=== PATIENT | male | born 1935 | race Caucasian/White ===

== ENCOUNTER → 2016-08-03 | Outpatient (CLI) | payer OTHER ==
[~2016-08-03] MED LIST: ACET325T96 PO; AMLO5TAB4 PO; CHOL1CAP57 PO; CINA0.42 PO; CMD5 PO; CYAN10005 PO; DLD2 PO; DORZ1SOL6 OPL; DXM4 PO; ENOX1INJ14 SQ; FLV1 PO; HYDR-5688 PO; HYDR2TAB48 PO; IPRA1AER2 INH; LCTS240 PO; LISI5TAB PO; LISI5TAB3 PO; LORC1TAB PO; LVNIS150 SC; METH5TAB2 PO; MTH5 PO; OMEG10007 PO; ONDA8TAB6 PO; SERT50TA PO; SIMV20TA2 PO; TAMS0.4C38 PO; TAMS0.4C59 PO; TEMA15CA4 PO; TRAV0.00 OPL
[2016-08-03 10:14] LABS: ESTIMATED AVERAGE GLUCOSE 114 mg/dl; HA1C FLAG Normal (Normal)
[2016-08-03 10:19] LABS: ALT/SGPT 16 U/L (12-78); AST/SGOT 9 U/L (15-37); BLOOD UREA NITROGEN 25 mg/dl (7-18); BUN/CREATININE RATIO 19.5 (10-20); CALCIUM 9.5 mg/dl (8.5-10.1); CARBON DIOXIDE 31 mmol/L (21-32); CHLORIDE 106 mmol/L (98-107); CHOLESTEROL 116 mg/dl (0-200); GLUCOSE 110 mg/dl (70-99); SODIUM 143 mmol/L (136-145)
[2016-08-03 10:32] LABS: CHOLESTEROL/HDL RATIO 3.5; HDL CHOLESTEROL 33 mg/dl; LDL CHOLESTEROL CALCULATED 61 mg/dl; TRIGLYCERIDES 112 mg/dl (0-150); VERY LOW DENSITY LIPOPROT CALC 22 mg/dl
[2016-08-03 11:56] LABS: RATIO 54.7 mcg/mg (0-30.0)
== END | disposition home or self-care (01) ==
LOC: C.LAB 08:02
PROVIDERS: ATTEND Internal Medicine
DX: E11.9 Type 2 diabetes mellitus without complications (principal); E78.5 Hyperlipidemia, unspecified

== ENCOUNTER → 2016-11-09 | Outpatient (CLI) | payer OTHER ==
[~2016-11-09] MED LIST changes: -DLD2 PO; +HYDR2TAB3 PO
== END | disposition home or self-care (01) ==
LOC: C.LAB 07:53
PROVIDERS: ATTEND Internal Medicine
DX: R97.20 Elevated prostate specific antigen [PSA] (principal)

== ENCOUNTER → 2016-11-26 | Outpatient (CLI) | payer OTHER ==
--- NOTE | 2016-11-26 13:15 | DIAGNOSTIC IMAGING REPORT ---
LUMBAR SPINE 5 VIEWS HISTORY: Pain M54.5 Lower back [id number] COMPARISON: None. FINDINGS: There is no fracture. No subluxation. Moderate degenerative disc change throughout. Considerable anterior and peripheral osteophytic reaction. IMPRESSION: Moderate degenerative change. No acute process. Electronically signed by: Hugo Finnegan M.D. 11/26/2016 1:14 PM Dictated Date/Time: 11/26/2016 1:13 PM
--- NOTE | 2016-11-26 13:17 | DIAGNOSTIC IMAGING REPORT ---
LEFT PELVIS/UNILATERAL HIP 2-3VIEWS CLINICAL HISTORY: M54.5 Lower back [id number]. Left hip pain. COMPARISON STUDY: None. FINDINGS: No fracture or dislocation within the pelvis or hips. The sacrum is intact. Skin joaquin within the right lower quadrant. Mild osteoarthritis within the bilateral hips. A 1.9 cm calcification within the mid pelvis may represent a bladder stone. IMPRESSION: 1. No fracture or dislocation within the pelvis or hips. 2. Mild bilateral hip osteoarthritis. Electronically signed by: Jorge Luis Gu M.D. 11/26/2016 1:15 PM Dictated Date/Time: 11/26/2016 1:13 PM
[2016-11-26 13:19] LABS: BASO % 0.1 %; BASO ABS # 0.01 K/uL (0-0.2); COMPLETE YES; EOS % 2.7 %; HEMATOCRIT 38.8 % (42-52); IG% 0.6 %; LYMPH % 12.6 %; LYMPH ABS # 1.27 K/uL (1.2-3.4); MEAN CELL VOLUME 83.8 fL (80-100); MEAN CORPUSCULAR HEMOGLOBIN 27.2 pg (25-34); MEAN CORPUSCULAR HGB CONC 32.5 g/dl (32-36); MEAN PLATELET VOLUME 10.4 fL (7.4-10.4); MONO % 5.9 %; NEUT % 78.1 %; PLATELET COUNT 224 K/uL (130-400); RED BLOOD COUNT 4.63 M/uL (4.7-6.1); WHITE BLOOD COUNT 10.06 K/uL (4.8-10.8)
[2016-11-26 13:33] LABS: URINE APPEARANCE CLEAR (CLEAR); URINE BILIRUBIN NEG (NEG); URINE COLOR YELLOW; URINE EPITHELIAL CELL AUTO >30 /lpf (0-5); URINE NITRITE NEG (NEG); URINE PH 5.5 (4.5-7.5); URINE SPECIFIC GRAVITY 1.018 (1.000-1.030); UROBILINOGEN NEG (NEG); ZZUR CULT IF INDIC CLEAN CATCH NO
[2016-11-26 13:43] LABS: MANUAL MICROSCOPIC REQUIRED? NO; REVIEW REQ? NO
[2016-11-26 13:51] LABS: ALB/GLOB RATIO 0.7 (0.9-2); ALKALINE PHOSPHATASE 146 U/L (45-117); ALT/SGPT 40 U/L (12-78); AST/SGOT 37 U/L (15-37); BLOOD UREA NITROGEN 19 mg/dl (7-18); BUN/CREATININE RATIO 17.1 (10-20); CALCIUM 9.5 mg/dl (8.5-10.1); CARBON DIOXIDE 30 mmol/L (21-32); CHLORIDE 108 mmol/L (98-107); GLUCOSE 123 mg/dl (70-99); POTASSIUM 3.8 mmol/L (3.5-5.1); SODIUM 144 mmol/L (136-145)
== END | disposition home or self-care (01) ==
LOC: C.RAD1850 12:26
PROVIDERS: ATTEND Nurse Practitioner Adult Health
DX: M54.5 Low back pain (principal); W19.XXXA Unspecified fall, initial encounter; R73.9 Hyperglycemia, unspecified; E11.9 Type 2 diabetes mellitus without complications; R53.81 Other malaise

== ENCOUNTER 2016-12-01 07:20 | Inpatient (IN) | payer OTHER ==
[~2016-12-01] VITALS: Ht 182.9 cm; Wt 109.8 kg
[~2016-12-01 07:20] MED LIST changes: -ACET325T96 PO; -CHOL1CAP57 PO; -CMD5 PO; -DXM4 PO; -ENOX1INJ14 SQ; -HYDR-5688 PO; -HYDR2TAB3 PO; -HYDR2TAB48 PO; -LCTS240 PO; -LISI5TAB PO; -LVNIS150 SC; -METH5TAB2 PO; -MTH5 PO; -ONDA8TAB6 PO; -SERT50TA PO; -TAMS0.4C38 PO
[2016-12-01] MEDS ORDERED: CHOL1CAP57 PO (07:46)
[2016-12-01] MEDS ORDERED: DORZ1SOL6 OPL (07:46)
[2016-12-01] MEDS ORDERED: LISI5TAB PO (07:46)
[2016-12-01] MEDS ORDERED: TAMS0.4C38 PO (07:46)
[2016-12-01] MEDS ORDERED: SERT50TA PO (07:46)
[2016-12-01 08:03] LABS: HEMATOCRIT 41.1 % (42-52); MEAN CELL VOLUME 83.4 fL (80-100); MEAN CORPUSCULAR HEMOGLOBIN 27.4 pg (25-34); MEAN CORPUSCULAR HGB CONC 32.8 g/dl (32-36); MEAN PLATELET VOLUME 10.2 fL (7.4-10.4); PLATELET COUNT 208 K/uL (130-400); RED BLOOD COUNT 4.93 M/uL (4.7-6.1)
[2016-12-01 08:09] LABS: INR 1.1 (0.9-1.1); PARTIAL THROMBOPLASTIN RATIO 1.1
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
[2016-12-01 08:20] LABS: VEN BLD GAS O2 SATURATION 61.7 %; VEN BLOOD GAS BASE EXCESS 4.5 mmol/L
[2016-12-01 08:22] LABS: BASO % 0.1 %; BASO ABS # 0.01 K/uL (0-0.2); COMPLETE YES; EOS % 2.7 %; IG% 0.2 %; LYMPH % 10.3 %; LYMPH ABS # 1.26 K/uL (1.2-3.4); MONO % 4.8 %; NEUT % 81.9 %
--- NOTE | 2016-12-01 08:26 | DIAGNOSTIC IMAGING REPORT ---
SINGLE VIEW CHEST CLINICAL HISTORY: Generalized abdominal pain. Hyperglycemia. Dyspnea. FINDINGS: An AP, portable, upright chest radiograph is compared to study dated 03/17/2016 and correlated with chest CT dated 08/08/2014. The examination is degraded by portable technique, apical lordotic positioning, and patient rotation. The heart is enlarged and there is atherosclerotic calcification of the thoracic aorta. There is mild pulmonary vascular congestion. Chronic interstitial thickening is unchanged, as is mild elevation right hemidiaphragm. Trace pleural effusions are suspected and there are bibasilar airspace opacities the lungs and pleural spaces are clear. No pneumothorax is seen. The skeletal structures are osteopenic. The bony thorax is grossly intact. Degenerative changes noted throughout the thoracic spine. IMPRESSION: 1. Cardiomegaly and mild pulmonary vascular congestion. 2. Trace pleural effusions are suspected. Bibasilar airspace opacities likely represent atelectasis. Clinical correlation will be required. Electronically signed by: Dano Esqueda M.D. 12/01/2016 8:25 AM Dictated Date/Time: 12/01/2016 8:23 AM
[2016-12-01 08:33] LABS: ALT/SGPT 30 U/L (12-78); BLOOD UREA NITROGEN 24 mg/dl (7-18); BUN/CREATININE RATIO 18.3 (10-20); CARBON DIOXIDE 30 mmol/L (21-32); CHLORIDE 106 mmol/L (98-107); GLUCOSE 139 mg/dl (70-99); SODIUM 144 mmol/L (136-145)
[2016-12-01 08:59] LABS: ALKALINE PHOSPHATASE 168 U/L (45-117); AMYLASE 47 U/L (25-115); AST/SGOT 25 U/L (15-37)
--- NOTE | 2016-12-01 09:19 | DIAGNOSTIC IMAGING REPORT ---
CT OF THE ABDOMEN AND PELVIS WITHOUT CONTRAST CLINICAL HISTORY: Right flank pain. COMPARISON STUDY: Abdominal series March 09, [address] August 08, 2014. TECHNIQUE: Axial images of the abdomen and pelvis were obtained without IV contrast. Images were reviewed in the axial, sagittal, and coronal planes. FINDINGS: A 4.1 cm subcutaneous lesion of the left lower chest is unchanged since exam of August 08, 2014. This is consistent with a sebaceous cyst. A 2.4 cm subcutaneous left flank lesion suggests a sebaceous cyst. Note is made of a 1.5 cm calculus that projects over the right posterior aspect of the bladder and is likely at the right ureterovesical junction. There is moderate dilatation of the mid to distal right ureter without right hydronephrosis. There are small bladder calculi. The bladder is moderately distended. There is marked enlargement of the prostate. Evaluation of the remainder of the abdomen and pelvis is suboptimal on this unenhanced exam. There are innumerable hepatic masses, including a dominant 6.7 cm right hepatic dome lesion. There is no biliary or pancreatic ductal dilatation. Note is made of a 3.4 x 3 cm pancreatic tail mass. No abdominal or pelvic lymphadenopathy is present. There is a lytic lesion within the L4 vertebral body with mild loss of vertebral body height. This suggests a pathologic fracture. In addition, there is a 3.4 cm lytic lesion within the inferior aspect of the sternum. There is colonic diverticulosis without evidence for acute diverticulitis. IMPRESSION: 1. Innumerable hepatic lesions consistent with metastatic disease. 3.4 x 3 cm pancreatic tail mass is suggestive of a neoplasm and could reflect a pancreatic adenocarcinoma with liver metastases. 2. L4 vertebral body lytic lesion with mild loss of vertebral body height suggestive of a pathologic fracture. In addition, lytic inferior sternal lesion. These suggest skeletal metastases. 3. 1.5 cm calculus that projects of the right posterior aspect of the bladder is likely at the right ureterovesical junction with moderate dilatation of the mid to distal right ureter. No right hydronephrosis. Several small bladder calculi. Marked enlargement of the prostate and moderate bladder distention. Electronically signed by: Robinson Carter M.D. 12/01/2016 9:18 AM Dictated Date/Time: 12/01/2016 9:01 AM
[2016-12-01 09:56] LABS: MANUAL MICROSCOPIC REQUIRED? NO; REVIEW REQ? NO; URINE APPEARANCE CLEAR (CLEAR); URINE BILIRUBIN NEG (NEG); URINE COLOR YELLOW; URINE NITRITE NEG (NEG); URINE SPECIFIC GRAVITY 1.017 (1.000-1.030); UROBILINOGEN NEG (NEG)
[2016-12-01 10:15] VITALS: O2SAT 96
[2016-12-01] MEDS ORDERED: ACETAMINOPHEN 325 MG TAB PO PRN (11:00)
[2016-12-01] MEDS ORDERED: ENOXAPARIN 40 MG/0.4 ML SYR SQ SCH (11:00)
[2016-12-01] MEDS ORDERED: MoRPHine SULFATE 4 MG/ML 1 ML CARP\\VIAL IV PRN (11:00)
[2016-12-01] MEDS ORDERED: OXYCODONE HCL IR 5 MG TAB (IMMEDIATE RELEASE) PO PRN (11:00)
[2016-12-01] MEDS ORDERED: ALUMINUM/MAGNESIUM/SIMETH (MAALOX MAX) 30 ML UDC PO PRN (11:00)
[2016-12-01] MEDS ORDERED: ONDANSETRON INJ 2 MG/ML 2 ML VIAL IV PRN (11:00)
[2016-12-01] MEDS ORDERED: INSULIN ASPART 100 UNITS/ML 3 ML PEN SC SCH (11:00)
[2016-12-01] MEDS ORDERED: MoRPHine SULFATE 2 MG/ML CARP IV PRN (11:00)
--- NOTE | 2016-12-01 11:18 | History and Physical ---
History & Physical Date & Time of Service: Dec 01, 2016 at 11:03 Chief Complaint: High Blood Surger,Can't Breathe W/ Exertion Primary Care Physician: Larry Finch M.D. History of Present Illness Source: patient, family 81 M presents with intractable low back pain for the last 10-14 days,CT that is suspicious of metastatic cancer with liver, pancrease and lumbar 4 lesion, The pain is mechanical, worse by movement and lying, dull ache, 3-4 /10 at rest and 7-8/10. He states he has had 8# weight loss during this time and despite this his glucose has been high. He also notes significant dyspnea on exertion, not associated with chest pain or le edema, he has been having ECHO done at the [facility] for research for his weight loss and diabetes, most recent echo shows preserved EF in 10/21 but no comment on valvular disease. He also is a former smoker but does not believe this feels like a copd exacerbation Discussing plan of care with pt and , they are not sure of what they want to do but want to find out what is the origin of the masses Past Medical/Surgical History Medical Problems: (1) Benign hypertension Status: Chronic (2) Diabetes mellitus Status: Chronic (3) Hernia repair Status: Resolved (4) Pneumonia Status: Resolved (5) Spinal stenosis Status: Chronic Family History Blood clots Cancer Diabetes mellitus Gallbladder disease Heart disease Hypertension Kidney disease Kidney stones Seizures Stroke Brother of "bone cancer" Social History Smoking Status: Former Smoker Smokeless Tobacco Use: No Alcohol Use: none Drug Use: none Marital Status: Housing status: lives with family Occupational Status: retired Immunizations History of Influenza Vaccine: Yes History of Tetanus Vaccine?: Yes History of Pneumococcal: Yes History of Hepatitis B Vaccine: No Multi-Drug Resistant Organisms History of MDRO: No Allergies Coded Allergies: Aspirin (Verified Allergy, Intermediate, ITCHING, FLUSHING, 12/01/16) Penicillins (Verified Allergy, Mild, unknown, 12/01/16) Adhesives (Verified Allergy, Unknown, RASH, 12/01/16) Home Medications Scheduled Amlodipine Besylate (Norvasc), 5 MG PO QAM Cholecalciferol (Vitamin D3), 2,000 UNIT PO DAILY Cinacalcet (Sensipar), 30 MG PO QPM Cinacalcet (Sensipar), 60 MG PO QAM Cyanocobalamin (Vitamin B-12), 1,000 MCG PO QAM Dorzolamide Hcl-Timolol Maleat (Cosopt Oph), 1 DROPS OPL BID Fish Oil ([place]-3), 2,000 MG PO DAILY Folic Acid (Folic Acid), 1 MG PO QAM Ipratropium-Albuterol (Combivent Respimat), 1 PUFFS INH BID Lisinopril (Prinivil), 5 MG PO DAILY Lorcaserin Hcl (Belviq), 10 MG PO BID Sertraline (Zoloft), 50 MG PO DAILY Simvastatin (Zocor), 10 MG PO QPM Tamsulosin Hcl (Flomax), 0.4 MG PO DAILY Travoprost (Travatan Z), 1 DROP OPL HS Scheduled PRN Temazepam (Restoril), 15-30 MG PO HS PRN for Sleep Review of Systems Constitutional: + weakness, + fatigue, No fever, No chills Eyes: + discharge (chronic), No worsening of vision, No eye pain ENT: No hearing loss, No nasal symptoms, No trouble swallowing Respiratory: + shortness of breath, + dyspnea on exertion, No cough, No sputum , No wheezing, No dyspnea at rest Cardiovascular: No chest pain, No orthopnea, No PND, No edema Abdomen: No pain, No nausea, No vomiting, No constipation Musculoskeletal: + joint pain, + muscle pain, No swelling, No calf pain Genitourinary - Male: + urinary frequency, + urinary urgency, No hematuria, No dysuria Neurologic: + weakness, No memory loss, No paralysis Psychiatric: + depression symptoms, No anhedonism Endocrine: + excessive urination, No fatigue, No excessive thirst Hematologic / Lymphatic: No abnormal bleeding/bruising, No clotting problems, No swollen lymph nodes Integumentary: No rash, No itch, No new/changing skin lesions Physical Exam Vital Signs Date Time Temp Pulse Resp B/P (MAP) Pulse Ox O2 Delivery O2 Flow Rate FiO2 12/01/16 10:15 96 Room Air 12/01/16 09:43 68 22 136/84 96 Room Air 12/01/16 07:37 75 12/01/16 07:22 36.3 69 18 138/83 93 Room Air General Appearance: WD/WN, + mild distress Head: normocephalic, atraumatic Eyes: + pertinent finding (right ptosis, cloudy cornea and sclera, clear discharge, this is chronic) ENT: hearing grossly normal, pharynx normal Neck: supple, no JVD, + pertinent finding (sebaceous cyst on nect) Respiratory/Chest: chest non-tender, lungs clear, normal breath sounds Cardiovascular: regular rate, rhythm, no JVD, + systolic murmur Abdomen/GI: normal bowel sounds, non tender, soft Genitourinary - Male: normal male genitalia Back: normal inspection, + pertinent finding (tender lower back to palpation) Extremities/Musculoskelatal: normal inspection, no calf tenderness, normal capillary refill Neurologic/Psych: alert, oriented x 3 Skin: normal color, warm/dry, no rash Diagnostics Laboratory Results Results Past 24 Hours Test 12/01/16 07:35 12/01/16 08:10 12/01/16 09:25 12/01/16 10:57 Range/Units White Blood Count 12.20 4.8-10.8 K/uL Red Blood Count 4.93 4.7-6.1 M/uL Hemoglobin 13.5 14.0-18.0 g/dL Hematocrit 41.1 42-52 % Mean Corpuscular Volume 83.4 80-100 fL Mean Corpuscular Hemoglobin 27.4 25-34 pg Mean Corpuscular Hemoglobin Concent 32.8 32-36 g/dl Platelet Count 208 130-400 K/uL Mean Platelet Volume 10.2 7.4-10.4 fL Neutrophils (%) (Auto) 81.9 % Lymphocytes (%) (Auto) 10.3 % Monocytes (%) (Auto) 4.8 % Eosinophils (%) (Auto) 2.7 % Basophils (%) (Auto) 0.1 % Neutrophils # (Auto) 9.99 1.4-6.5 K/uL Lymphocytes # (Auto) 1.26 1.2-3.4 K/uL Monocytes # (Auto) 0.58 0.11-0.59 K/uL Eosinophils # (Auto) 0.33 0-0.5 K/uL Basophils # (Auto) 0.01 0-0.2 K/uL RDW Standard Deviation 45.2 36.4-46.3 fL RDW Coefficient of Variation 15.0 11.5-14.5 % Immature Granulocyte % (Auto) 0.2 % Immature Granulocyte # (Auto) 0.03 0.00-0.02 K/uL Red Blood Cell Morphology Unremarkable Prothrombin Time 12.0 9.0-12.0 SECONDS Prothromb Time International Ratio 1.1 0.9-1.1 Activated Partial Thromboplast Time 29.6 21.0-31.0 SECONDS Partial Thromboplastin Ratio 1.1 Sodium Level 144 136-145 mmol/L Potassium Level 4.0 3.5-5.1 mmol/L Chloride Level 106 98-107 mmol/L Carbon Dioxide Level 30 21-32 mmol/L Anion Gap 8.0 3-11 mmol/L Blood Urea Nitrogen 24 7-18 mg/dl Creatinine 1.30 0.60-1.40 mg/dl Estimated GFR () 58.9 Estimated GFR (Non- 50.8 BUN/Creatinine Ratio 18.3 10-20 Bedside Glucose 144 70-99 mg/dl Random Glucose 139 70-99 mg/dl Total Bilirubin 0.6 0.2-1 mg/dl Direct Bilirubin 0.2 0-0.2 mg/dl Aspartate Amino Transf (AST/SGOT) 25 15-37 U/L Alanine Aminotransferase (ALT/SGPT) 30 12-78 U/L Alkaline Phosphatase 168 45-117 U/L Total Creatine Kinase 23 39-308 U/L Creatine Kinase MB 0.7 0.5-3.6 ng/ml Creatine Kinase MB Ratio 3.0 0-3.0 Troponin I < 0.015 0-0.045 ng/ml Pro-B-Type Natriuretic Peptide 429 0-1800 pg/ml Total Protein 7.5 6.4-8.2 gm/dl Albumin 3.3 3.4-5.0 gm/dl Amylase Level 47 25-115 U/L Lipase 228 73-393 U/L Beta-Hydroxybutyric Acid 0.70 0.2-2.81 mg/dL Venous Blood pH 7.43 7.36-7.41 Venous Blood Partial Pressure CO2 46 38.0-50.0 mmHg Venous Blood Partial Pressure O2 31 mmHg Venous Blood HCO3 30 mmol/L Venous Blood Oxygen Saturation 61.7 % Venous Blood Base Excess 4.5 mmol/L Urine Color YELLOW Urine Appearance CLEAR CLEAR Urine pH 7.0 4.5-7.5 Urine Specific [place] 1.017 1.000-1.030 Urine Protein NEG NEG Urine Glucose (UA) NEG NEG Urine Ketones NEG NEG Urine Occult Blood NEG NEG Urine Nitrite NEG NEG Urine Bilirubin NEG NEG Urine Urobilinogen NEG NEG Urine Leukocyte Esterase NEG NEG Diagnostic Radiology CT abd/pelvis without contrast 1. Innumerable hepatic lesions consistent with metastatic disease. 3.4 x 3 cm pancreatic tail mass is suggestive of a neoplasm and could reflect a pancreatic adenocarcinoma with liver metastases. 2. L4 vertebral body lytic lesion with mild loss of vertebral body height suggestive of a pathologic fracture. In addition, lytic inferior sternal lesion. These suggest skeletal metastases. 3. 1.5 cm calculus that projects of the right posterior aspect of the bladder is likely at the right ureterovesical junction with moderate dilatation of the mid to distal right ureter. No right hydronephrosis. Several small bladder calculi. Marked enlargement of the prostate and moderate bladder distention. CXR normal (no significant changes) other (NSR 1AVB) Impression Assessment and Plan [address] suggestive of metastic cancer, associated LBP at L4 lytic lesion and PRESTON of unknown origin PRESTON, since D Dimer is markedly elevated and has likely cancer, CTA is positive for PE, will start on heparin gtt and stop for biopsy, can then consider lovenox or noac Metastatic lesions, discussion with Dr Carter, he feels he can safely access a sternal lytic lesion to gain tissue diagnosis, once done will involve oncology Backpain, will use morphine and oxycodone, consider lidoderm Diabetes, will continue diabeta, diabetic diet and ssi backup. Hold Belviq Hyperparathyroidism, will continue sensipar, calcium is acceptable HTN, in control continue chandra and norvasc, Dyslipidemia will hold zocor as does have liver mets Lovenox for DVT unless PE proven discussed code status with patient, states he is not DNR Advanced Directives Existing Living Will: Yes Existing Power of Taxi Servicer: Yes VTE Prophylaxis VTE Risk Assessment Done? Y/N: Yes Risk Level: High Given or contraindicated: Enoxaparin (Lovenox)SQ
[2016-12-01] MEDS ORDERED: OPTIRAY 320 IV PRN (11:30)
[2016-12-01 12:05] VITALS: BP 143/84; PULSE 64; TEMP 36.7; O2SAT 93
[2016-12-01 12:07] LABS: CALCIUM 9.7 mg/dl (8.5-10.1)
[2016-12-01] MEDS ORDERED: GLUCAGON FOR INJ 1 MG VIAL SQ PRN (12:15)
[2016-12-01] MEDS ORDERED: PATIENT'S HEIGHT AND/OR WEIGHT NEEDED SCH (12:15)
[2016-12-01] MEDS ORDERED: DEXTROSE 50% 50 ML SYR IV PRN (12:15)
[2016-12-01] MEDS ORDERED: GLUCOSE 10 TABS/TUBE PO PRN (12:15)
[2016-12-01] MEDS ORDERED: GLUCOSE 40% GEL 15 GM TUBE PO PRN (12:15)
[2016-12-01] MEDS: INSULIN ASPART 100 UNITS/ML 3 ML PEN SC SCH ×3 (12:22→20:51)
[2016-12-01 14:39] VITALS: BP 125/78; PULSE 62; TEMP 36.4; O2SAT 93
[2016-12-01 15:07] VITALS: Ht 182.9 cm; Wt 109.8 kg
--- NOTE | 2016-12-01 15:28 | DIAGNOSTIC IMAGING REPORT ---
CT ANGIOGRAPHY OF THE CHEST, PULMONARY EMBOLUS PROTOCOL CLINICAL HISTORY: Shortness of breath. Elevated D dimer. COMPARISON STUDY: Chest CT August 08, 2014. TECHNIQUE: Following IV administration of 93 mL of Optiray-320, helical axial images of the chest were obtained utilizing the pulmonary embolus protocol. Maximal intensity projections and sagittal and coronal reformats were viewed on an independent 3D workstation. IV contrast was administered without complication. CT DOSE: 680.68 mGy.cm FINDINGS: There are are extensive bilateral pulmonary emboli, including emboli within the distal right pulmonary artery extending into the lobar and segmental branches of the right lung. There are numerous segmental left-sided pulmonary emboli. There is no CT evidence of right heart strain. The heart is mildly enlarged. There is extensive coronary artery calcification. There is no thoracic aortic dissection. A few sebaceous cysts within the left chest wall and left flank are noted. The central airways are patent. There are a few indeterminate tiny pulmonary nodules, including a 3 mm left lower lobe nodule shown image 147 of 278. This is new since CT of August 08, 2014. Note is made of a 3 cm lytic lesion within the inferior aspect of the sternum with cortical destruction. There are innumerable hepatic masses, including a dominant 6.5 cm right hepatic dome lesion. IMPRESSION: 1. Extensive bilateral pulmonary emboli, as described above. No CT evidence of right heart strain. No pulmonary infarct. 2. Numerous hepatic masses consistent with metastatic disease. 3. 3 cm lytic sternal lesion consistent with metastatic disease. Electronically signed by: Robinson Carter M.D. 12/01/2016 3:27 PM Dictated Date/Time: 12/01/2016 3:14 PM
[2016-12-01] MEDS ORDERED: HEPARIN IV BOLUS 7,000 UNIT in SYRINGE 0 ML IV ONE (16:45)
[2016-12-01] MEDS: HEPARIN 25,000 UNIT/500ML D5W 500 ML IV PRN (16:45)
[2016-12-01 19:09] VITALS: BP 132/71; PULSE 97; TEMP 37; O2SAT 97
[2016-12-01 19:21] VITALS: BP 154/72; PULSE 63; TEMP 36.6; O2SAT 90
[2016-12-01] MEDS: TRAVOPROST Z 0.004% OPH SOLN 2.5 ML BTL OPL SCH (20:49)
[2016-12-01] MEDS: IPRATROPIUM BROMIDE/ALBUTEROL respimat INH INH SCH (20:49)
[2016-12-01] MEDS: DORZOLAMIDE/TIMOLOL 22.3/6.8MG/ML 10 ML BTL OPL SCH (20:50)
[2016-12-01 23:35] VITALS: BP 127/79; PULSE 72; TEMP 36.7; O2SAT 90
[2016-12-01 23:35] LABS: PARTIAL THROMBOPLASTIN RATIO 3.9
[2016-12-01] MEDS: TEMAZEPAM 15 MG CAP PO PRN (23:47)
[2016-12-02 03:39] VITALS: BP 127/75; PULSE 75; TEMP 36.7; O2SAT 90
[2016-12-02 07:11] VITALS: BP 148/81; PULSE 75; TEMP 36.8; O2SAT 94
[2016-12-02 07:43] LABS: HEMATOCRIT 38.2 % (42-52); MEAN CELL VOLUME 82.9 fL (80-100); MEAN CORPUSCULAR HEMOGLOBIN 27.3 pg (25-34); MEAN PLATELET VOLUME 10.3 fL (7.4-10.4); PLATELET COUNT 186 K/uL (130-400); RED BLOOD COUNT 4.61 M/uL (4.7-6.1); WHITE BLOOD COUNT 10.45 K/uL (4.8-10.8)
[2016-12-02 07:58] LABS: INR 1.1 (0.9-1.1)
[2016-12-02] MEDS ORDERED: CINACALCET 60 MG PO SCH (08:00)
[2016-12-02] MEDS ORDERED: LISINOPRIL 5 MG TAB PO SCH ×2 (08:00→21:00)
[2016-12-02] MEDS ORDERED: TAMSULOSIN HCL 0.4 MG CAP PO SCH ×2 (08:00→21:00)
[2016-12-02 08:02] LABS: PARTIAL THROMBOPLASTIN RATIO 2.5
[2016-12-02 08:10] LABS: BUN/CREATININE RATIO 21.5 (10-20); CALCIUM 9.8 mg/dl (8.5-10.1); CREATININE 1.1 mg/dl (0.60-1.40); POTASSIUM 4.2 mmol/L (3.5-5.1)
[2016-12-02] MEDS: CYANOCOBALAMIN 500 MCG TAB (VIT B-12) PO SCH (08:25)
[2016-12-02] MEDS: AMLODIPINE BESYLATE 5 MG TAB PO SCH (08:25)
[2016-12-02] MEDS: SERTRALINE HCL 50 MG TAB PO SCH (08:26)
[2016-12-02] MEDS: DORZOLAMIDE/TIMOLOL 22.3/6.8MG/ML 10 ML BTL OPL SCH ×2 (08:26→20:26)
[2016-12-02] MEDS: IPRATROPIUM BROMIDE/ALBUTEROL respimat INH INH SCH ×2 (08:26→20:26)
[2016-12-02] MEDS: INSULIN ASPART 100 UNITS/ML 3 ML PEN SC SCH ×4 (08:27→20:25)
[2016-12-02] MEDS ORDERED: NURSING DECISION MEDICATION ORDER SCH (08:30)
[2016-12-02 11:14] VITALS: BP 106/67; PULSE 55; TEMP 36.6; O2SAT 94
[2016-12-02 15:24] VITALS: BP 111/75; PULSE 65; TEMP 36.6; O2SAT 94
--- NOTE | 2016-12-02 15:38 | DIAGNOSTIC IMAGING REPORT ---
CT GUIDED FINE NEEDLE ASPIRATION OF STERNAL LESION CT DOSE: 1250.28 mGycm CLINICAL HISTORY: Metastatic cancer. Sternal lesion. COMPARISON STUDY: CT of the chest, abdomen and pelvis December 01, 2016. PROCEDURE: Axial unenhanced images through the mid to lower chest demonstrated the 3.4 cm lytic lesion within the inferior sternum. This was targeted for biopsy. The procedure, risks and benefits were discussed with the patient. The patient agreed to the procedure and informed written consent was obtained. The procedure was performed by Dr. Carter following a timeout. Skin was prepped and draped in sterile fashion and local anesthesia was achieved with 1% lidocaine. Under intermittent CT guidance, a 2 inch, 22-gauge needle was directed into the lesion. 2 biopsies were performed. Malignant cells were noted on the initial pass. Samples were deemed preliminarily adequate. The patient tolerated the procedure well and no immediate complications were evident. IMPRESSION: CT-guided fine needle aspiration of sternal lesion. Electronically signed by: Robinson Carter M.D. 12/02/2016 3:37 PM Dictated Date/Time: 12/02/2016 3:35 PM
--- NOTE | 2016-12-02 17:13 | Progress Note ---
Subjective Date of Service: Dec 02, 2016. 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 (4) 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 cancer Status: Acute Review of Systems Constitutional: + weight loss (8 lbs in 1 week), + weakness, + fatigue, No fever, No chills ENT: No hearing loss, No unusual epistaxis, No nasal symptoms, No sore throat Respiratory: No cough, No sputum, No wheezing, No shortness of breath Cardiac: No chest pain, No orthopnea, No PND, No edema Abdomen: No pain, No nausea, No vomiting, No diarrhea Musculoskeletal: No joint pain, No muscle pain Male : No dysuria, No urinary frequency, No incontinence, No nocturia more than once/night Neurologic: No memory loss, No paralysis, No weakness, No numbness/tingling Psychiatric: No depression symptoms, No anhedonism, No anxiety, No insomnia Objective Vital Signs Date Time Temp Pulse Resp B/P (MAP) Pulse Ox O2 Delivery O2 Flow Rate FiO2 12/02/16 15:24 36.6 65 18 111/75 (87) 94 Room Air 12/02/16 11:14 36.6 55 18 106/67 (80) 94 Room Air 12/02/16 08:30 Room Air 12/02/16 07:11 36.8 75 18 148/81 (103) 94 Room Air 12/02/16 03:39 36.7 75 18 127/75 (92) 90 Room Air 12/02/16 00:01 Room Air 12/01/16 23:35 36.7 72 20 127/79 (95) 90 Room Air 12/01/16 19:21 36.6 63 18 154/72 (99) 90 Room Air 12/01/16 19:09 37.0 97 20 132/71 (91) 97 Room Air Physical Exam General Appearance: WD/WN, no apparent distress Eyes: normal inspection, PERRL, EOMI, sclerae normal ENT: normal ENT inspection, hearing grossly normal, TMs normal, pharynx normal Neck: supple, no adenopathy, thyroid normal, no JVD Respiratory/Chest: chest non-tender, lungs clear, normal breath sounds, no respiratory distress Cardiovascular: regular rate, rhythm, no edema, no gallop, no JVD Abdomen: normal bowel sounds, non tender, soft, no organomegaly Neurologic/Psychiatric: no motor/sensory deficits, alert, normal mood/affect, oriented x 3 Laboratory Results Last 24 Hours Test 12/01/16 20:15 12/01/16 22:48 12/02/16 07:28 12/02/16 07:34 Bedside Glucose 175 mg/dl 107 mg/dl Activated Partial Thromboplast Time 101.1 SECONDS 64.9 SECONDS Partial Thromboplastin Ratio 3.9 2.5 White Blood Count 10.45 K/uL Red Blood Count 4.61 M/uL Hemoglobin 12.6 g/dL Hematocrit 38.2 % Mean Corpuscular Volume 82.9 fL Mean Corpuscular Hemoglobin 27.3 pg Mean Corpuscular Hemoglobin Concent 33.0 g/dl RDW Standard Deviation 45.1 fL RDW Coefficient of Variation 15.1 % Platelet Count 186 K/uL Mean Platelet Volume 10.3 fL Prothrombin Time 12.0 SECONDS Prothromb Time International Ratio 1.1 Sodium Level 142 mmol/L Potassium Level 4.2 mmol/L Chloride Level 107 mmol/L Carbon Dioxide Level 29 mmol/L Anion Gap 6.0 mmol/L Blood Urea Nitrogen 24 mg/dl Creatinine 1.10 mg/dl Est Creatinine Clear Calc Drug Dose 66.4 ml/min Estimated GFR () 72.1 Estimated GFR (Non- 62.2 BUN/Creatinine Ratio 21.5 Random Glucose 108 mg/dl Calcium Level 9.8 mg/dl Test 12/02/16 10:41 12/02/16 16:20 12/02/16 16:44 Bedside Glucose 104 mg/dl 203 mg/dl Assessment and Plan [address] suggestive of metastic cancer, associated LBP at L4 lytic lesion and PRESTON of unknown origin PRESTON, since D Dimer is markedly elevated and has likely cancer, extensive bilateral PE, cont heparin gtt and stop for biopsy Metastatic lesions sterotactic bx of sternal lytic lesion completed on 12/02, malignacy cells identified, oncology consulted, pt also noted weight loss Chronic lower back pain, stable, will use morphine and oxycodone, consider lidoderm Diabetes, Belviq, cont SSI Hyperparathyroidism, will continue sensipar, calcium WNL HTN stable, cont norvasc 5 mg PO daily and lisinopril 5 mg PO daily Dyslipidemia cont to hold zocor due to liver mets Lovenox for DVT unless PE proven FULL CODE status
[2016-12-02 17:16] LABS: PARTIAL THROMBOPLASTIN RATIO 1.1
[2016-12-02] MEDS ORDERED: NURSING VERBAL MED ORDER ONE (17:30)
[2016-12-02] MEDS ORDERED: HEPARIN IV BOLUS 7,000 UNIT in SYRINGE 0 ML IV ONE (17:30)
[2016-12-02 20:11] VITALS: BP 122/79; PULSE 61; TEMP 36.7; O2SAT 93
[2016-12-02] MEDS: TRAVOPROST Z 0.004% OPH SOLN 2.5 ML BTL OPL SCH (20:26)
[2016-12-02] MEDS: TEMAZEPAM 15 MG CAP PO PRN (20:27)
[2016-12-02] MEDS ORDERED: ENOXAPARIN 40 MG/0.4 ML SYR SQ SCH (21:00)
[2016-12-02] MEDS ORDERED: CINACALCET 30 MG TAB PO SCH ×2 (21:00)
[2016-12-02] MEDS: HEPARIN 25,000 UNIT/500ML D5W 500 ML IV PRN (21:15)
[2016-12-02 23:33] VITALS: BP 103/57; PULSE 72; TEMP 36.4; O2SAT 91
[2016-12-02 23:46] LABS: PARTIAL THROMBOPLASTIN RATIO 3.4
[2016-12-03] VITALS: O2SAT 91
[2016-12-03] MEDS ORDERED: ENOXAPARIN 80 MG/0.8 ML SYR SQ SCH
[2016-12-03] MEDS ORDERED: ENOXAPARIN 100 MG/1ML SYR SQ SCH
[2016-12-03 04:15] VITALS: BP 99/62; PULSE 82; TEMP 36.6; O2SAT 90
[2016-12-03 06:23] LABS: PARTIAL THROMBOPLASTIN RATIO 2.1
[2016-12-03 07:07] VITALS: BP 121/73; PULSE 79; TEMP 36.7; O2SAT 92
[2016-12-03] MEDS: IPRATROPIUM BROMIDE/ALBUTEROL respimat INH INH SCH (07:39)
[2016-12-03] MEDS: SERTRALINE HCL 50 MG TAB PO SCH (07:40)
[2016-12-03] MEDS: CYANOCOBALAMIN 500 MCG TAB (VIT B-12) PO SCH (07:40)
[2016-12-03] MEDS: AMLODIPINE BESYLATE 5 MG TAB PO SCH (07:41)
[2016-12-03] MEDS: DORZOLAMIDE/TIMOLOL 22.3/6.8MG/ML 10 ML BTL OPL SCH (07:48)
[2016-12-03] MEDS ORDERED: CINACALCET 30 MG TAB PO SCH ×2 (08:00)
[2016-12-03] MEDS: INSULIN ASPART 100 UNITS/ML 3 ML PEN SC SCH ×2 (08:40→12:24)
--- NOTE | 2016-12-03 09:17 | Oncology Consultation ---
Oncology/Heme Consultation Date of Consultation: Dec 03, 2016. Attending Physician: Benigno Stevenson D.O. Reason for Consultation: Metastatic pancreatic cancer History of Present Illness Mr. Benitez is an 81 year old man with a history of diabetes, hypertension, and chronic arthritis and back pain. He noticed increasing constitutional symptoms, including fatigue, anorexia, and weakness, along with some worsening sternal and mid-back pain, over the course of the last few weeks. He was still active and attended a conference last week, but the symptoms finally became enough that he came to the [facility] ER yesterday. There, scans revealed a mass in the tail of his pancreas with numerous hypodense lesions in his liver and a lytic lesion in his sternum. Labs were mostly normal except for a CA 19-9 of >5000. Yesterday , he underwent biopsy of the sternal lesion. While the official pathology report is still pending, it appears to be an adenocarcinoma. Mr. Benitez was in generally good health prior to this. 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 He has continued to do this right up until his admission, though he notes it was getting harder. 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: Acute (4) 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 cancer Status: Acute Family History Blood clots Cancer Diabetes mellitus Gallbladder disease Heart disease Hypertension Kidney disease Kidney stones Seizures Stroke Social History Smoking Status: Former Smoker Smokeless Tobacco Use: No Alcohol Use: none Drug Use: none Marital Status: Housing Status: lives with significant other Occupation Status: retired Allergies Coded Allergies: Aspirin (Verified Allergy, Intermediate, ITCHING, FLUSHING, 12/01/16) Penicillins (Verified Allergy, Mild, unknown, 12/01/16) Adhesives (Verified Allergy, Unknown, RASH, 12/01/16) Home Medications Scheduled Amlodipine Besylate (Norvasc), 5 MG PO QAM Cholecalciferol (Vitamin D3), 2,000 UNIT PO DAILY Cinacalcet (Sensipar), 30 MG PO QPM Cinacalcet (Sensipar), 60 MG PO QAM Cyanocobalamin (Vitamin B-12), 1,000 MCG PO QAM Dorzolamide Hcl-Timolol Maleat (Cosopt Oph), 1 DROPS OPL BID Fish Oil ([place]-3), 2,000 MG PO DAILY Folic Acid (Folic Acid), 1 MG PO QAM Ipratropium-Albuterol (Combivent Respimat), 1 PUFFS INH BID Lisinopril (Prinivil), 5 MG PO DAILY Lorcaserin Hcl (Belviq), 10 MG PO BID Sertraline (Zoloft), 50 MG PO DAILY Simvastatin (Zocor), 10 MG PO QPM Tamsulosin Hcl (Flomax), 0.4 MG PO DAILY Travoprost (Travatan Z), 1 DROP OPL HS Scheduled PRN Temazepam (Restoril), 15-30 MG PO HS PRN for Sleep Current Inpatient Medications Current Inpatient Medications Medications (Trade) Dose Ordered Sig/Jay Route Start Time Stop Time Status Last Admin Dose Admin Amlodipine Besylate (Norvasc Tab) 5 mg QAM PO 12/02/16 08:00 01/01/17 08:59 12/03/16 07:41 5 MG Cyanocobalamin (Vitamin B-12 Tab) 1,000 mcg QAM PO 12/02/16 08:00 01/01/17 08:59 12/03/16 07:40 1,000 MCG Dorzolamide/ Timolol (Cosopt Op Soln) 1 drops BID OPL 12/01/16 20:00 12/31/16 20:59 12/03/16 07:48 1 DROPS Albuterol/ Ipratropium (Combivent Respimat Inh) 1 puffs BID INH 12/01/16 20:00 12/31/16 20:59 12/03/16 07:39 1 PUFFS Sertraline HCl (Zoloft Tab) 50 mg DAILY PO 12/02/16 08:00 01/01/17 08:59 12/03/16 07:40 50 MG Temazepam (Restoril Cap) 15 mg HS PRN PO 12/01/16 10:30 12/31/16 10:29 12/02/16 20:27 15 MG Travoprost (Travatan Z) 1 drops HS OPL 12/01/16 21:00 12/31/16 20:59 12/02/16 20:26 1 DROPS Acetaminophen (Tylenol Tab) 650 mg Q4H PRN PO 12/01/16 11:00 7/27/17 10:59 Al Hydrox/Mg Hydrox/Simethicone (Maalox Max Susp) 15 ml Q4H PRN PO 12/01/16 11:00 12/31/16 10:59 Ondansetron HCl (Zofran Inj) 4 mg Q6H PRN IV 12/01/16 11:00 12/31/16 10:59 Insulin Aspart (novoLOG ASPART) SLIDING SCALE PARAMETER ACHS SC 12/01/16 11:00 12/31/16 10:59 12/02/16 17:43 2 UNITS Morphine Sulfate (MoRPHine SULFATE INJ) 2 mg Q4H PRN IV 12/01/16 11:00 12/15/16 10:59 Morphine Sulfate (MoRPHine SULFATE INJ) 4 mg Q4H PRN IV 12/01/16 11:00 12/15/16 10:59 Oxycodone HCl (Roxicodone Immediate Rel Tab) 10 mg Q6 PRN PO 12/01/16 11:00 12/15/16 10:59 Ioversol (Optiray 320) 125 ml UD PRN IV 12/01/16 11:30 12/05/16 11:29 Glucose (Glucose 40% Gel) 15-30 GRAMS 15 GRAMS... UD PRN PO 12/01/16 12:15 12/31/16 12:14 Glucose (Glucose Chew Tab) 4-8 Tablets 4 Tabl... UD PRN PO 12/01/16 12:15 12/31/16 12:14 Dextrose (Dextrose 50% 50ML Syringe) 25-50ML OF 50% DW IV FOR... UD PRN IV 12/01/16 12:15 12/31/16 12:14 Glucagon (Glucagon Inj) 1 mg UD PRN SQ 12/01/16 12:15 12/31/16 12:14 Heparin Sodium/ Dextrose 500 ml @ 25 mls/hr Q20H PRN IV 12/01/16 16:45 12/31/16 16:44 12/02/16 21:15 29 MLS/HR Lisinopril (Zestril Tab) 5 mg HS PO 12/02/16 21:00 01/01/17 07:59 12/02/16 20:24 5 MG Tamsulosin HCl (Flomax Cap) 0.4 mg HS PO 12/02/16 21:00 01/01/17 07:59 12/02/16 20:24 0.4 MG Cinacalcet (Sensipar) 30 mg HS PO 12/02/16 21:00 01/01/17 20:59 12/02/16 20:25 30 MG Cinacalcet (Sensipar) 60 mg QAM PO 12/03/16 08:00 01/02/17 07:59 12/03/16 07:43 60 MG Review of Systems Constitutional: + weight loss, + weakness, + fatigue, No fever, No chills Respiratory: No cough, No shortness of breath Cardiovascular: + chest pain (low sternal pain) Abdomen: No pain, No nausea, No vomiting, No diarrhea Musculoskeletal: + joint pain (mid-back) Genitourinary - Male: No dysuria Hematologic / Lymphatic: No abnormal bleeding/bruising, No swollen lymph nodes Integumentary: No rash Physical Exam Date Time Temp Pulse Resp B/P (MAP) Pulse Ox O2 Delivery O2 Flow Rate FiO2 12/03/16 07:07 36.7 79 20 121/73 (89) 92 Room Air 12/03/16 04:15 36.6 82 18 99/62 (74) 90 Room Air 12/03/16 00:00 91 Room Air 12/02/16 23:33 36.4 72 20 103/57 (72) 91 Room Air 12/02/16 20:11 36.7 61 17 122/79 (93) 93 Room Air 12/02/16 16:10 Room Air 12/02/16 15:24 36.6 65 18 111/75 (87) 94 Room Air 12/02/16 11:14 36.6 55 18 106/67 (80) 94 Room Air General Appearance: no apparent distress, + pertinent finding (comfortable, overweight gentleman in no distress) Eyes: EOMI, + pertinent finding (right-sided ptosis, chronic) ENT: pharynx normal Respiratory/Chest: lungs clear Cardiovascular: regular rate, rhythm, no murmur Abdomen/GI: non tender, soft, no organomegaly Extremities/Musculoskelatal: no pedal edema Neurologic/Psych: alert, oriented x 3 Skin: normal color, no rash Laboratory Results Last 24 Hours Test 12/02/16 10:41 12/02/16 16:20 12/02/16 16:44 12/02/16 20:14 Bedside Glucose 104 mg/dl 203 mg/dl 164 mg/dl Activated Partial Thromboplast Time 29.2 SECONDS Partial Thromboplastin Ratio 1.1 Test 12/02/16 23:20 12/03/16 05:57 12/03/16 07:54 Activated Partial Thromboplast Time 89.5 SECONDS 54.4 SECONDS Partial Thromboplastin Ratio 3.4 2.1 Bedside Glucose 131 mg/dl Assessment & Plan Mr. Benitez is a generally healthy 81 year old man who presented with several weeks of worsening constitutional symptoms and some chest and back pain. He was found to have a mass in the tail of his pancreas with multiple hepatic hypodensities and a lytic lesion in his sternum. The sternal lesion was biopsied yesterday and is an adenocarcinoma, though IHC is still pending to confirm a site of origin. However, given his pattern of disease on imaging and his markedly elevated CA 19-9 (>5000), this is almost certainly pancreatic adenocarcinoma. We reviewed the prognosis and treatment of his disease. It is a very aggressive cancer. Cancers of the pancreatic tail often present in this way , as they do not cause many symptoms until they've metastasized. His prognosis is poor, though he is in good shape overall, particularly given his age, and may be able to tolerate some chemotherapy. We can discuss this more in the office after he's discharged. In the meantime, I asked Dr. Stevenson to have a port placed in preparation for chemo. He also has scattered bilateral pulmonary emboli, which are unsurprising since pancreatic cancer is a very thrombogenic tumor. He can be transitioned to Lovenox for discharge.
--- NOTE | 2016-12-03 10:29 | Medical Consult ---
Consultation Date of Consultation: Dec 03, 2016. Attending Physician: Benigno Stevenson D.O. History of Present Illness 81 y/o male with newly diagnosed pancreatic cancer needs port for chemotherapy. Had breakfast this AM. Is on heparin drip for PE. Past Medical/Surgical History Medical Problems: (1) Benign hypertension (2) Diabetes mellitus (3) Diabetic peripheral neuropathy associated with type 2 diabetes mellitus (4) Foot deformity (5) Hernia repair (6) History of diabetic ulcer of foot (7) Loss of sensation (8) Metastatic cancer (9) Pneumonia (10) Spinal stenosis Family History Blood clots Cancer Diabetes mellitus Gallbladder disease Heart disease Hypertension Kidney disease Kidney stones Seizures Stroke Social History Smoking Status: Former Smoker Smokeless Tobacco Use: No Alcohol Use: none Drug Use: none Marital Status: Housing Status: lives with significant other Occupation Status: retired Allergies Coded Allergies: Aspirin (Verified Allergy, Intermediate, ITCHING, FLUSHING, 12/01/16) Penicillins (Verified Allergy, Mild, unknown, 12/01/16) Adhesives (Verified Allergy, Unknown, RASH, 12/01/16) Current Inpatient Medications Current Inpatient Medications Medications (Trade) Dose Ordered Sig/Jay Route Start Time Stop Time Status Last Admin Dose Admin Amlodipine Besylate (Norvasc Tab) 5 mg QAM PO 12/02/16 08:00 01/01/17 08:59 12/03/16 07:41 5 MG Cyanocobalamin (Vitamin B-12 Tab) 1,000 mcg QAM PO 12/02/16 08:00 01/01/17 08:59 12/03/16 07:40 1,000 MCG Dorzolamide/ Timolol (Cosopt Op Soln) 1 drops BID OPL 12/01/16 20:00 12/31/16 20:59 12/03/16 07:48 1 DROPS Albuterol/ Ipratropium (Combivent Respimat Inh) 1 puffs BID INH 12/01/16 20:00 12/31/16 20:59 12/03/16 07:39 1 PUFFS Sertraline HCl (Zoloft Tab) 50 mg DAILY PO 12/02/16 08:00 01/01/17 08:59 12/03/16 07:40 50 MG Temazepam (Restoril Cap) 15 mg HS PRN PO 12/01/16 10:30 12/31/16 10:29 12/02/16 20:27 15 MG Travoprost (Travatan Z) 1 drops HS OPL 12/01/16 21:00 12/31/16 20:59 12/02/16 20:26 1 DROPS Acetaminophen (Tylenol Tab) 650 mg Q4H PRN PO 12/01/16 11:00 12/31/16 10:59 Al Hydrox/Mg Hydrox/Simethicone (Maalox Max Susp) 15 ml Q4H PRN PO 12/01/16 11:00 12/31/16 10:59 Ondansetron HCl (Zofran Inj) 4 mg Q6H PRN IV 12/01/16 11:00 12/31/16 10:59 Insulin Aspart (novoLOG ASPART) SLIDING SCALE PARAMETER ACHS SC 12/01/16 11:00 12/31/16 10:59 12/02/16 17:43 2 UNITS Morphine Sulfate (MoRPHine SULFATE INJ) 2 mg Q4H PRN IV 12/01/16 11:00 12/15/16 10:59 Morphine Sulfate (MoRPHine SULFATE INJ) 4 mg Q4H PRN IV 12/01/16 11:00 12/15/16 10:59 Oxycodone HCl (Roxicodone Immediate Rel Tab) 10 mg Q6 PRN PO 12/01/16 11:00 12/15/16 10:59 Ioversol (Optiray 320) 125 ml UD PRN IV 12/01/16 11:30 12/05/16 11:29 Glucose (Glucose 40% Gel) 15-30 GRAMS 15 GRAMS... UD PRN PO 12/01/16 12:15 12/31/16 12:14 Glucose (Glucose Chew Tab) 4-8 Tablets 4 Tabl... UD PRN PO 12/01/16 12:15 12/31/16 12:14 Dextrose (Dextrose 50% 50ML Syringe) 25-50ML OF 50% DW IV FOR... UD PRN IV 12/01/16 12:15 12/31/16 12:14 Glucagon (Glucagon Inj) 1 mg UD PRN SQ 12/01/16 12:15 12/31/16 12:14 Heparin Sodium/ Dextrose 500 ml @ 25 mls/hr Q20H PRN IV 12/01/16 16:45 12/31/16 16:44 12/02/16 21:15 29 MLS/HR Lisinopril (Zestril Tab) 5 mg HS PO 12/02/16 21:00 01/01/17 07:59 12/02/16 20:24 5 MG Tamsulosin HCl (Flomax Cap) 0.4 mg HS PO 12/02/16 21:00 01/01/17 07:59 12/02/16 20:24 0.4 MG Cinacalcet (Sensipar) 30 mg HS PO 12/02/16 21:00 01/01/17 20:59 12/02/16 20:25 30 MG Cinacalcet (Sensipar) 60 mg QAM PO 12/03/16 08:00 01/02/17 07:59 12/03/16 07:43 60 MG Physical Exam Date Time Temp Pulse Resp B/P (MAP) Pulse Ox O2 Delivery O2 Flow Rate FiO2 12/03/16 07:07 36.7 79 20 121/73 (89) 92 Room Air 12/03/16 04:15 36.6 82 18 99/62 (74) 90 Room Air 12/03/16 00:00 91 Room Air 12/02/16 23:33 36.4 72 20 103/57 (72) 91 Room Air 12/02/16 20:11 36.7 61 17 122/79 (93) 93 Room Air 12/02/16 16:10 Room Air 12/02/16 15:24 36.6 65 18 111/75 (87) 94 Room Air 12/02/16 11:14 36.6 55 18 106/67 (80) 94 Room Air General Appearance: no apparent distress Eyes: + pertinent finding (right ptosis ) Respiratory/Chest: chest non-tender Laboratory Results Last 24 Hours Test 12/02/16 10:41 12/02/16 16:20 12/02/16 16:44 12/02/16 20:14 Bedside Glucose 104 mg/dl 203 mg/dl 164 mg/dl Activated Partial Thromboplast Time 29.2 SECONDS Partial Thromboplastin Ratio 1.1 Test 12/02/16 23:20 12/03/16 05:57 12/03/16 07:54 Activated Partial Thromboplast Time 89.5 SECONDS 54.4 SECONDS Partial Thromboplastin Ratio 3.4 2.1 Bedside Glucose 131 mg/dl Assessment & Plan pancreatic cancer Will schedule for outpatient port placement. Appt made in clinic for December 09. Discussed the procedure with him and his .
[2016-12-03 11:10] VITALS: BP 126/74; PULSE 63; TEMP 36.5; O2SAT 92
[2016-12-03] MEDS ORDERED: CMD5 PO (13:36)
[2016-12-03] MEDS ORDERED: LVNIS150 SC (13:37)
--- NOTE | 2016-12-03 13:42 | Discharge Instructions ---
Discharge Instructions Date of Service Dec 03, 2016. Admission Reason for Admission: Metastatic Cancer Discharge Discharge Diagnosis / Problem: Pancreatic cancer, pulmonary embolism Discharge Goals Goal(s): Decrease discomfort, Improve function, Increase independence, Improve disease control, Learn about illness, Diagnostic testing, Therapeutic intervention, Prevent Disease Progression Activity Recommendations Activity Limitations: resume your previous activity Shower/Bathe: no limitations . Instructions / Follow-Up Instructions / Follow-Up Patient to be discharged home Found to have pancreatic cancer and pulmonary embolism (clot in lung) Patient will need to continue on lovenox 180 mg subcutaneously once a day for 4 more days Patient will need to take couamdin 5 mg tablet once a day Patient will need to follow up to have PT/INR on 12/07/16to monitor coumadin levels Patient will also need general surgery follow up for mediport placement Please stop taking coumadin on wednesday for preparation of mediport placement, can resume coumadin 24 hrs after mediport placed if OK with surgery Patient also to follow up with Dr Conchis Alcantara for further panceatic cancer workup/ treatment Please follow up with Dr Finch in 1-2 weeks Current Hospital Diet Patient's current hospital diet: Diabetes Type 2 Diet Discharge Diet Recommended Diet: Diabetes Type 2 Diet Pending Studies Studies pending at discharge: yes List of pending studies: CA19-9 Medical Emergencies . Who to Call and When: Medical Emergencies: If at any time you feel your situation is an emergency, please call 911 immediately. . Non-Emergent Contact Non-Emergency issues call your: Primary Care Provider Call Non-Emergent contact if: you have a fever, your pain is worsening . . "Provider Documentation" section prepared by Benigno Stevenson. . VTE Core Measure Inpt VTE Proph given/why not?: Enoxaparin (Lovenox)SQ, Warfarin (Coumadin)
[2016-12-03] MEDS ORDERED: ENOXAPARIN 1.5 MG/KG SQ ONE (13:45)
[2016-12-03] MEDS ORDERED: ENOXAPARIN 100 MG/1ML SYR SQ ONE (14:00)
[2016-12-03] MEDS ORDERED: WARFARIN SOD 5 MG TAB PO ONE (14:00)
[2016-12-03] MEDS ORDERED: ENOXAPARIN 60 MG/0.6 ML SYR SQ ONE (14:00)
[2016-12-03 14:02] VITALS: BP 126/74; PULSE 63; TEMP 36.5; O2SAT 92
[2016-12-03] MEDS ORDERED: LOVENOX TEACHING KIT ONE (15:30)
--- NOTE | 2016-12-03 16:29 | Discharge Summary ---
Discharge Summary Date of Service Dec 03, 2016. Discharge Summary Admission Date: Dec 01, 2016 at 10:57 Discharge Date: Dec 03, 2016 Discharge Disposition: Home Principal Diagnosis: Pancreatic cancer, pulmonary embolism Immunizations: Have You Had Influenza Vaccine: Yes History of Tetanus Vaccine?: Yes History of Pneumococcal: Yes History of Hepatitis B Vaccine: No Consultations: Oncology General surgery Medication Reconciliation New Medications: Enoxaparin (Lovenox) 150 Mg/1 Ml Inj 180 MG SC DAILY, #4 SYR Warfarin Sod (Coumadin) 5 Mg Tab 5 MG PO 1400 for 30 Days, #30 TAB Continued Medications: Amlodipine Besylate (Norvasc) 5 Mg Tab 5 MG PO QAM, TAB Cholecalciferol (Vitamin D3) 1,000 Unit Cap 2000 UNIT PO DAILY Cinacalcet (Sensipar) 30 Mg Tab 30 MG PO QPM, TAB Cinacalcet (Sensipar) 30 Mg Tab 60 MG PO QAM Cyanocobalamin (Vitamin B-12) 1,000 Mcg Tab 1000 MCG PO QAM Dorzolamide Hcl-Timolol Maleat (Cosopt Oph) 1 Georgina Georgina 1 DROPS OPL BID Fish Oil ([place]-3) 1 Ea Cap 2000 MG PO DAILY, 0 Refills Folic Acid (Folic Acid) 1 Mg Tab 1 MG PO QAM Ipratropium-Albuterol (Combivent Respimat) 1 Aer Aer 1 PUFFS INH BID, INH Lisinopril (Prinivil) 5 Mg Tab 5 MG PO DAILY, TAB Lorcaserin Hcl (Belviq) 10 Mg Tab 10 MG PO BID Sertraline (Zoloft) 50 Mg Tab 50 MG PO DAILY, TAB Simvastatin (Zocor) 20 Mg Tab 10 MG PO QPM, TAB Tamsulosin Hcl (Flomax) 0.4 Mg Cap 0.4 MG PO DAILY, CAP Temazepam (Restoril) 15 Mg Cap 15-30 MG PO HS PRN for Sleep, 0 Refills Travoprost (Travatan Z) 0.004 % Conrad 1 DROP OPL HS Discharge Exam Review of Systems: Constitutional: + weight loss, + weakness, + fatigue, No fever, No chills, No sweats Eyes: No worsening of vision, No eye pain, No discharge ENT: No hearing loss, No unusual epistaxis, No nasal symptoms, No sore throat, No tinnitus Respiratory: No cough, No sputum, No wheezing, No shortness of breath, No dyspnea on exertion Cardiovascular: No chest pain, No orthopnea, No PND, No edema, No claudication Abdomen: No pain, No nausea, No vomiting, No diarrhea Musculoskeletal: No joint pain, No muscle pain, No swelling, No calf pain Genitourinary - Male: No hematuria, No dysuria, No urinary frequency, No urinary urgency Neurologic: No memory loss, No paralysis, No weakness, No numbness/tingling Psychiatric: No depression symptoms, No anhedonism, No anxiety, No insomnia Endocrine: No fatigue, No excessive thirst, No excessive urination Integumentary: No rash, No itch Physical Exam: General Appearance: WD/WN, no apparent distress Eyes: normal inspection, PERRL, EOMI, sclerae normal Neck: supple, no adenopathy, thyroid normal, no JVD Respiratory/Chest: chest non-tender, lungs clear, normal breath sounds, no respiratory distress Cardiovascular: regular rate, rhythm, no edema, no gallop, no JVD Abdomen / GI: normal bowel sounds, non tender, soft, no organomegaly Extremities: normal inspection, no calf tenderness, normal capillary refill , no pedal edema Neurologic/Psychiatric: alert, normal mood/affect, normal reflexes, oriented x 3 Hospital Course [address] suggestive of metastatic cancer, associated LBP at L4 lytic lesion and PRESTON of unknown origin PRESTON, since D Dimer is markedly elevated and has likely cancer, extensive bilateral PE, pt initially on heparin drip then transitioned to lovenox 1.5 mg/kg once daily, will need bridge for 5 days in addition to coumadin 5 mg PO daily. Lovenox would be the best option for patient however due to cost, coumadin will have to suffice on discharge.Will need to stop couamdin on tuesday 12/05 in preparation of mediport on No shortness of breath noted. Metastatic lesions stereotactic bx of sternal lytic lesion completed on 12/02, malignacy cells identified, oncology consulted, pt also noted weight loss biopsy indicative of adenocarcinoma of pancreas. Patient also to follow up with Dr Conchis Alcantara for further pancreatic cancer workup /treatment Chronic lower back pain, resolved, will use morphine and oxycodone PRN, consider lidoderm if worsening Diabetes, Belviq, cont SSI, accuchecks Hyperparathyroidism, will continue sensipar, calcium WNL HTN stable, cont norvasc 5 mg PO daily and lisinopril 5 mg PO daily Dyslipidemia continue zocor on discharge Lovenox for DVT unless PE proven FULL CODE status Total Time Spent: Greater than 30 minutes This includes examination of the patient, discharge planning, medication reconciliation, and communication with other providers. Discharge Instructions Please refer to the electronic Patient Visit Report (Discharge Instructions) for additional information. Additional Copies To Larry Finch M.D.
[2016-12-10] MEDS ORDERED: CMD5 PO (14:57)
[2016-12-14] MEDS ORDERED: ACET325T96 PO (07:19)
[2016-12-14] MEDS ORDERED: HYDR-5688 PO (10:18)
[2017-02-10] MEDS ORDERED: DLD2 PO (09:08)
[2017-02-15] MEDS ORDERED: METH5TAB2 PO (12:55)
[2017-02-15] MEDS ORDERED: ONDA8TAB6 PO (12:55)
[2017-02-15] MEDS ORDERED: HYDR2TAB48 PO (12:55)
== END 2016-12-03 16:37 | disposition home health service (06) | DRG 477 ==
LOC: C.EDB 07:22 → C.4E 10:57 → ENRESERV 11:05 → CANRESERV 11:05 → ENRESERV 11:10
PROVIDERS: ADMIT Internal Medicine; ATTEND Hospitalist
PROC: 0PB03ZX Excision of Sternum, Percutaneous Approach, Diagnostic (ICD-10-PCS; principal; 2016-12-01)
DX: C79.51 Secondary malignant neoplasm of bone (principal); I26.99 Other pulmonary embolism without acute cor pulmonale; C25.2 Malignant neoplasm of tail of pancreas; C78.7 Secondary malignant neoplasm of liver and intrahepatic bile duct; G89.29 Other chronic pain; M54.5 Low back pain; E11.9 Type 2 diabetes mellitus without complications; E21.3 Hyperparathyroidism, unspecified; I10 Essential (primary) hypertension; E78.5 Hyperlipidemia, unspecified; R63.4 Abnormal weight loss; Z68.32 Body mass index [BMI] 32.0-32.9, adult; Z87.891 Personal history of nicotine dependence; Z80.8 Family history of malignant neoplasm of other organs or systems; Z79.899 Other long term (current) drug therapy

== ENCOUNTER → 2016-12-09 | Outpatient (CLI) | payer OTHER ==
[~2016-12-09] MED LIST changes: +ACET325T96 PO; +CHOL1CAP57 PO; +CMD5 PO; +DLD2 PO; +DXM4 PO; +ENOX1INJ14 SQ; +HYDR-5688 PO; +HYDR2TAB48 PO; +LCTS240 PO; +LISI5TAB PO; -LISI5TAB3 PO; +LVNIS150 SC; +METH5TAB2 PO; +MTH5 PO; +ONDA8TAB6 PO; +SERT50TA PO; +TAMS0.4C38 PO; -TAMS0.4C59 PO
[2016-12-09 10:15] LABS: INR 3.5 (0.9-1.1); PROTHROMBIN TIME (PATIENT) 39.9 SECONDS (9.0-12.0)
== END | disposition home or self-care (01) ==
LOC: C.LAB 09:24
PROVIDERS: ATTEND Internal Medicine
DX: I82.4Z9 Acute embolism and thrombosis of unspecified deep veins of unspecified distal lower extremity (principal)

== ENCOUNTER → 2016-12-13 | Outpatient (CLI) | payer OTHER ==
[~2016-12-13] MED LIST changes: -LORC1TAB PO; -LVNIS150 SC; -OMEG10007 PO
[2016-12-13 13:33] LABS: INR 1.3 (0.9-1.1); PROTHROMBIN TIME (PATIENT) 14.6 SECONDS (9.0-12.0)
== END | disposition home or self-care (01) ==
LOC: C.LAB 12:54
PROVIDERS: ATTEND Physician Assistant
DX: I26.99 Other pulmonary embolism without acute cor pulmonale (principal)

== ENCOUNTER → 2016-12-14 | Day surgery (SDC) | payer OTHER ==
[2016-12-10 14:57] VITALS: BMI 33.0
[~2016-12-14] VITALS: Ht 182.9 cm; Wt 112.0 kg
[~2016-12-14] MED LIST changes: +ATROPINE SULFATE 0.1 MG/ML 5ML SYR IV PRN; +CEFAZOLIN SOD 1 GM VIAL ONE; +CLINDAMYCIN IV 900 MG in DEXTROSE 5% ADD-VANTAGE 100ML 100 ML IV SCH; +CONRAY 60% 50 ML VIAL ONE; +EpHEDrine SULFATE INJ 50 MG/ML AMP IV PRN; +FENTANYL CITRATE INJ 50 MCG/1 ML 2 ML VIAL IV PRN; +FENTANYL CITRATE INJ 50 MCG/1 ML 2 ML VIAL ONE; +FLUMAZENIL 0.1 MG/1 ML 10 ML VIAL IV PRN; +HEPARIN SOD (PORCINE) 1000 UNIT/ML 10 ML VIAL ONE; +HYDROCODONE/ACETAMOPHEN 5/325MG TAB PO PRN; +HYDROmorphone INJ 2 MG/ML SYR/VIAL IV PRN; +LABETALOL HCL IV 5 MG/ML 20ML IV PRN; +LACTATED RINGER'S 1000ML 1,000 ML IV SCH; +LIDOCAINE HCL 1% 20 ML VIAL ONE; +LIDOCAINE HCL 2% 2 ML VIAL (20MG/ML) ONE; +MEPERIDINE HCL 25 MG/ML CARP IV PRN; +MIDAZOLAM HCL 1 MG/ML 2ML VIAL ONE; +NALOXONE HCL 0.4 MG/1 ML VIAL/CARP IV PRN; +ONDANSETRON INJ 2 MG/ML 2 ML VIAL IV PRN; +PHENYLEPHRINE 100MCG/ML 5ML SYR IV PRN; +PROPOFOL IV EMULSION 10 MG/ML 20 ML VIAL IV ONE; +THROMBIN FOR SOLN 20000 UNIT KIT ONE
[2016-12-14 06:41] VITALS: Ht 182.9 cm; Wt 112.0 kg
--- NOTE | 2016-12-14 07:32 | History & Physical Bridge Note ---
H&P Re-Evaluation Bridge Note: I have examined the patient, reviewed the History & Physical and in the interval since the performance of the History & Physical I have noted the following changes of clinical significance: No changes noted
[2016-12-14 07:44] LABS: INR 1.3 (0.9-1.1); PARTIAL THROMBOPLASTIN RATIO 1.6; PROTHROMBIN TIME (PATIENT) 13.7 SECONDS (9.0-12.0)
--- NOTE | 2016-12-14 10:20 | Discharge Instructions ---
Discharge Instructions Date of Service Dec 14, 2016. Visit Reason for Visit: Pancreatic Cancer Discharge Discharge Diagnosis / Problem: A-port placement Discharge Goals Goal(s): Improve disease control Activity Recommendations Activity Limitations: as noted below Shower/Bathe: keep incision dry (for 2 days) Anesthesia . Post Anesthesia Instructions: If you have had General Anesthesia or IV Sedation: * Do not drive today. * Resume driving when surgeon permits. * Do not make important decisions or sign legal documents today. * Call surgeon for: 1. Temperature elevations greater than 101 degrees F. 2. Uncontrollable pain. 3. Excessive bleeding. 4. Persistent nausea and vomiting. 5. Medication intolerance (nausea, vomiting or rash). * For nausea and vomiting use only clear liquids such as: tea, soda, bouillon until nausea subsides, then gradually increase diet as tolerated. * If you have any concerns or questions, call your surgeon's office. If physician is unavailable and it is an emergency, call 911 or go to the nearest emergency room. . Instructions / Follow-Up Instructions / Follow-Up Dr. Tijerina's office in 2 weeks for suture removal, call [phone] for any questions Diet Recommendations Recommended Home Diet: no limitations Pending Studies Studies pending at discharge: no Medical Emergencies . Who to Call and When: Medical Emergencies: If at any time you feel your situation is an emergency, please call 911 immediately. . Non-Emergent Contact Non-Emergency issues call your: Surgeon Call Non-Emergent contact if: you have a fever, temperature is above 101.5, wound has increased redness, wound has increased pain, you have any medication questions . . "Provider Documentation" section prepared by Froylan Briceño. .
--- NOTE | 2016-12-14 10:52 | [facility] Operative Report ---
Operative Report Operative Date Dec 14, 2016. Pre-Operative Diagnosis Pancreatic Cancer Post-Operative Diagnosis Same as preoperative Procedure(s) Performed Infusaport Insertion, Left Cephalic Vein Surgeon Dr. Yaya Tijerina Guest Relations Manager Surgeon(s) None per surgeon Estimated Blood Loss 5ml Findings placed via Lt cephalic vein Specimens None per surgeon Anesthesia local/ sedation Complication(s) None Disposition Recovery Room / PACU Description of Procedure Patient was brought in the operating room placed operating room table in the supine position. His upper chest was prepped and draped in usual fashion. A roll was placed between his shoulders. 1% plain lidocaine was used to anesthetize the skin and subcutaneous tissue over the left deltopectoral groove. Incision was made carried dissection down identifying a very large left cephalic vein. It was ligated distally using 2-0 silk suture. It was then opened and a catheter passed under fluoroscopy into the brachiocephalic vein. I had to pass the wire through the catheter to place the catheter in the spear vena cava. At this point it was aspirated and flushed with heparinized solution. Ocular was fashioned in the subcutaneous tissue and and the port attached to the catheter. Port was then placed into the pocket sutured to the tissue using 3-0 Prolene suture. It was irrigated using antibiotic solution. The port was flushed with heparinized solution. The subcutaneous tissue was reapproximated using 2-0 chromic catgut suture. Skin was reapproximated using 4 -0 nylon. A dressing applied and patient transferred to the recovery area in stable condition. I attest to the content of the Intraoperative Record and any orders documented therein. Any exceptions are noted below.
--- NOTE | 2016-12-14 11:06 | Anesthesiology Progress Note ---
Anesthesia Post Op Note Date & Time Dec 14, 2016 at 11:06 Vital Signs Pain Intensity: 0 Vital Signs Past 12 Hours Date Time Temp Pulse Resp B/P (MAP) Pulse Ox O2 Delivery O2 Flow Rate FiO2 12/14/16 11:00 36.7 63 16 133/74 97 Nasal Cannula 2 12/14/16 10:55 36.7 61 16 117/73 96 Nasal Cannula 2 12/14/16 10:50 36.7 72 16 121/71 96 Nasal Cannula 2 12/14/16 10:45 36.7 62 16 120/71 96 Nasal Cannula 2 Notes Mental Status: alert / awake / arousable, participated in evaluation Pt Amnestic to Procedure: Yes Nausea / Vomiting: adequately controlled Pain: adequately controlled Airway Patency, RR, SpO2: stable & adequate BP & HR: stable & adequate Hydration State: stable & adequate Anesthetic Complications: no major complications apparent
[2016-12-14 11:20] VITALS: BP 135/76; PULSE 66; TEMP 36.6; O2SAT 97
--- NOTE | 2016-12-14 11:22 | DIAGNOSTIC IMAGING REPORT ---
CHEST ONE VIEW PORTABLE HISTORY:81 [place] COMPARISON: 12/01/2016 chest radiograph, PA study 12/01/2016. TECHNIQUE: Portable upright AP view of the chest. FINDINGS: Cardiac silhouette is again enlarged. There is tortuosity and atherosclerosis of the thoracic aorta. There is been interval placement of a left subclavian Yvyscs-v-Kcim catheter with distal tip terminating to the right of midline within the expected region of the proximal SVC. No postprocedural pneumothorax is identified. Mild subsegmental pleural prequel scarring of the right lung base is unchanged. Bones appear grossly intact. IMPRESSION: Status post left subclavian Avgwxy-c-Rskh catheter terminates within the expected region of the proximal SVC. No postprocedural pneumothorax. The above report was generated using voice recognition software. It may contain grammatical, syntax or spelling errors. Electronically signed by: Jv Spicer 12/14/2016 11:20 AM Dictated Date/Time: 12/14/2016 11:18 AM
[2016-12-14 12:00] VITALS: BP 123/69; PULSE 64; TEMP 36.4; O2SAT 96
[2016-12-14 12:20] VITALS: BP 142/64; PULSE 62; TEMP 36.6; O2SAT 96
== END | disposition home or self-care (01) ==
LOC: C.ACU 06:19
PROVIDERS: ATTEND Surgery
DX: C25.9 Malignant neoplasm of pancreas, unspecified (principal); N40.0 Benign prostatic hyperplasia without lower urinary tract symptoms; E11.42 Type 2 diabetes mellitus with diabetic polyneuropathy; E78.5 Hyperlipidemia, unspecified; E21.3 Hyperparathyroidism, unspecified; I10 Essential (primary) hypertension; E63.8 Other specified nutritional deficiencies; E55.9 Vitamin D deficiency, unspecified; Z86.711 Personal history of pulmonary embolism; Z87.891 Personal history of nicotine dependence; Z83.3 Family history of diabetes mellitus; Z84.1 Family history of disorders of kidney and ureter; Z82.49 Family history of ischemic heart disease and other diseases of the circulatory system

== ENCOUNTER 2016-12-27 08:17 | Emergency (ER) | payer OTHER ==
[~2016-12-27 08:17] MED LIST changes: -ACET325T96 PO; -ATROPINE SULFATE 0.1 MG/ML 5ML SYR IV PRN; -CEFAZOLIN SOD 1 GM VIAL ONE; -CLINDAMYCIN IV 900 MG in DEXTROSE 5% ADD-VANTAGE 100ML 100 ML IV SCH; -CONRAY 60% 50 ML VIAL ONE; -DLD2 PO; -DXM4 PO; -ENOX1INJ14 SQ; -EpHEDrine SULFATE INJ 50 MG/ML AMP IV PRN; -FENTANYL CITRATE INJ 50 MCG/1 ML 2 ML VIAL IV PRN; -FENTANYL CITRATE INJ 50 MCG/1 ML 2 ML VIAL ONE; -FLUMAZENIL 0.1 MG/1 ML 10 ML VIAL IV PRN; -HEPARIN SOD (PORCINE) 1000 UNIT/ML 10 ML VIAL ONE; -HYDR2TAB48 PO; -HYDROCODONE/ACETAMOPHEN 5/325MG TAB PO PRN; -HYDROmorphone INJ 2 MG/ML SYR/VIAL IV PRN; -LABETALOL HCL IV 5 MG/ML 20ML IV PRN; -LACTATED RINGER'S 1000ML 1,000 ML IV SCH; -LCTS240 PO; -LIDOCAINE HCL 1% 20 ML VIAL ONE; -LIDOCAINE HCL 2% 2 ML VIAL (20MG/ML) ONE; -MEPERIDINE HCL 25 MG/ML CARP IV PRN; -METH5TAB2 PO; -MIDAZOLAM HCL 1 MG/ML 2ML VIAL ONE; -MTH5 PO; -NALOXONE HCL 0.4 MG/1 ML VIAL/CARP IV PRN; -ONDA8TAB6 PO; -ONDANSETRON INJ 2 MG/ML 2 ML VIAL IV PRN; -PHENYLEPHRINE 100MCG/ML 5ML SYR IV PRN; -PROPOFOL IV EMULSION 10 MG/ML 20 ML VIAL IV ONE; -THROMBIN FOR SOLN 20000 UNIT KIT ONE
[2016-12-27 08:25] VITALS: TEMP 36.4; Ht 180.3 cm
--- NOTE | 2016-12-27 08:46 | EMERGENCY ROOM VISIT NOTE ---
History Report prepared by Cornelius: Noa Garcia Under the Supervision of: Dr. Jomar Austin M.D. First contact with patient: 08:30 Chief Complaint: GI ASSESSMENT Stated Complaint: NO BM IN OVER A WEEK History of Present Illness The patient is an 81 year old male who presents to the Emergency Room with complaints of persistent constipation that started one week ago. The patient states that he has been using stool softeners twice a day for the past week without any relief. The patient states that he feels like he has to have a bowel movement but he is unable to have one. He denies nausea and vomiting. The patient is able to eat in small amounts. He states that he does not have an appetite. The patient is being treated with chemotherapy for bone, pancreas, and liver cancer. The patient's most recent chemotherapy treatment was 6 days ago. The patient had a port placed in his left upper chest wall 2 weeks ago. Source of History: patient Onset: one week ago Position: abdomen Quality: other (constipation) Timing: other (persistent) Modifying Factors (Relieving): other (None) Associated Symptoms: No nausea, No vomiting Note: loss of appetite Review of Systems All systems have been listed, reviewed, and are negative other than those previously mentioned. Please see Additional Medical History Sheet. Past Medical & Surgical Medical Problems: (1) Benign hypertension (2) Diabetes mellitus (3) Diabetic peripheral neuropathy associated with type 2 diabetes mellitus (4) Foot deformity (5) Hernia repair (6) History of diabetic ulcer of foot (7) Loss of sensation (8) Metastatic cancer (9) Pneumonia (10) Spinal stenosis Family History Blood clots Cancer Diabetes mellitus Gallbladder disease Heart disease Hypertension Kidney disease Kidney stones Seizures Stroke Social History Smoking Status: Never Smoker Alcohol Use: none Drug Use: none Marital Status: Housing Status: lives with significant other Occupation Status: retired Current/Historical Medications Scheduled Amlodipine Besylate (Norvasc), 5 MG PO QAM Cholecalciferol (Vitamin D3), 2,000 UNIT PO DAILY Cinacalcet (Sensipar), 30 MG PO QPM Cinacalcet (Sensipar), 60 MG PO QAM Cyanocobalamin (Vitamin B-12), 1,000 MCG PO QAM Dorzolamide Hcl-Timolol Maleat (Cosopt Oph), 1 DROPS OPL BID Enoxaparin Sodium (Enoxaparin Sodium), 150 MG SQ HS Folic Acid (Folic Acid), 1 MG PO QAM Ipratropium-Albuterol (Combivent Respimat), 1 PUFFS INH QID Lisinopril (Prinivil), 5 MG PO HS Sertraline (Zoloft), 50 MG PO DAILY Simvastatin (Zocor), 10 MG PO QPM Tamsulosin Hcl (Flomax), 0.4 MG PO DAILY Travoprost (Travatan Z), 1 DROP OPL HS Scheduled PRN Temazepam (Restoril), 15-30 MG PO HS PRN for Sleep Allergies Coded Allergies: Aspirin (Verified Allergy, Intermediate, ITCHING, FLUSHING, 12/27/16) Penicillins (Verified Allergy, Mild, RASH, 12/27/16) Adhesives (Verified Allergy, Unknown, RASH, 12/27/16) Physical Exam Vital Signs Date Time Temp Pulse Resp B/P (MAP) Pulse Ox O2 Delivery O2 Flow Rate FiO2 12/27/16 11:25 71 17 124/64 93 12/27/16 10:11 66 20 142/80 95 Room Air 12/27/16 08:25 36.4 62 18 102/59 94 Room Air Physical Exam GENERAL: Patient awake, alert, oriented x 3. Patient follows commands. Patient does not appear toxic. Patient is adequately hydrated and well- nourished. SKIN: No erythema, pallor, cyanosis or rash HEENT: Normal head, pupils equal, reactive to light and accommodation. CHEST: Port in left upper chest with sutured healing incision, no signs of infection. LUNGS: Clear to auscultation. No wheezes, no rales, no rhonchi. HEART: 3/6 systolic murmur. No gallops. No rubs ABDOMEN: Morbidly obese, bowel sounds active, nontender, no masses, no rebound, no hepatomegaly or splenomegaly. RECTAL: Large amount of hard eugenie-like stool, GUAIAC stool. EXTREMITIES: No signs of trauma or infection NEUROLOGIC: Cranial nerves II-XII within normal limits. No gross motor sensory function deficits. Medical Decision & Procedures Laboratory Results 12/27/16 09:10 Red Blood Count 4.17, Mean Corpuscular Volume 82.7, Mean Corpuscular Hemoglobin 26.4, Mean Corpuscular Hemoglobin Concent 31.9, Mean Platelet Volume 11.2, Neutrophils (%) (Auto) 70.6, Lymphocytes (%) (Auto) 22.3, Monocytes (%) (Auto) 4.5, Eosinophils (%) (Auto) 1.9, Basophils (%) (Auto) 0.0, Neutrophils # (Auto) 1.90, Lymphocytes # (Auto) 0.60, Monocytes # (Auto) 0.12, Eosinophils # (Auto) 0.05, Basophils # (Auto) 0.00 12/27/16 09:10 Test 12/27/16 09:10 12/27/16 09:25 White Blood Count 2.69 K/uL (4.8-10.8) Red Blood Count 4.17 M/uL (4.7-6.1) Hemoglobin 11.0 g/dL (14.0-18.0) Hematocrit 34.5 % (42-52) Mean Corpuscular Volume 82.7 fL (80-100) Mean Corpuscular Hemoglobin 26.4 pg (25-34) Mean Corpuscular Hemoglobin Concent 31.9 g/dl (32-36) Platelet Count 98 K/uL (130-400) Mean Platelet Volume 11.2 fL (7.4-10.4) Neutrophils (%) (Auto) 70.6 % Lymphocytes (%) (Auto) 22.3 % Monocytes (%) (Auto) 4.5 % Eosinophils (%) (Auto) 1.9 % Basophils (%) (Auto) 0.0 % Neutrophils # (Auto) 1.90 K/uL (1.4-6.5) Lymphocytes # (Auto) 0.60 K/uL (1.2-3.4) Monocytes # (Auto) 0.12 K/uL (0.11-0.59) Eosinophils # (Auto) 0.05 K/uL (0-0.5) Basophils # (Auto) 0.00 K/uL (0-0.2) RDW Standard Deviation 46.3 fL (36.4-46.3) RDW Coefficient of Variation 15.2 % (11.5-14.5) Immature Granulocyte % (Auto) 0.7 % Immature Granulocyte # (Auto) 0.02 K/uL (0.00-0.02) Platelet Estimate DECREASED Anion Gap 5.0 mmol/L (3-11) Estimated GFR () 72.1 Estimated GFR (Non- 62.2 BUN/Creatinine Ratio 20.1 (10-20) Calcium Level 10.3 mg/dl (8.5-10.1) Prothrombin Time 11.7 SECONDS (9.0-12.0) Prothromb Time International Ratio 1.1 (0.9-1.1) Laboratory results as stated above per my review. Medications Administered Medications (Trade) Dose Ordered Sig/Jay Route Start Time Stop Time Status Last Admin Dose Admin Heparin Sodium (Porcine) (Heparin 100 Unit/ml 5ml Flush) 5 ml STK-MED ONCE .ROUTE 12/27/16 11:17 12/27/16 11:18 DC 12/27/16 11:42 5 ML ED Course 0830: Past medical records reviewed. The patient was evaluated in room A2. A complete history and physical examination was performed. 1021: The nurse informed me that the patient had a large bowel movement and beginning to feel better. 1101: Upon reevaluation, the patient appeared to have improvement of his symptoms. I discussed today's findings with him. He verbalized agreement of the treatment plan. He was discharged home. Medical Decision Nurses notes reviewed. Medical history sheet reviewed. Differential diagnosis includes but is not limited to: constipation, fecal impaction, dehydration, metabolic disorder. Disimpaction resulted in movement of some of the hard stool but did not resolve the problem. The patient subsequently had a soapsuds enema which resulted in a large bowel movement. The patient felt significantly better. Blood work was evaluated. The patient's platelet count and WBC are slightly low. Patient is being treated with chemotherapy. The patient was felt safe to return home. He was encouraged to continue taking stool softeners twice a day. Medication Reconcilliation Current Medication List: was personally reviewed by me Blood Pressure Screening Patient's blood pressure: Normal blood pressure Impression Primary Impression: Constipation Scribe Attestation The scribe's documentation has been prepared under my direction and personally reviewed by me in its entirety. I confirm that the note above accurately reflects all work, treatment, procedures, and medical decision making performed by me. Departure Information Dispostion Home / Self-Care Referrals Larry Finch M.D. (PCP) Forms HOME CARE DOCUMENTATION FORM, IMPORTANT VISIT INFORMATION Patient Instructions [facility] Additional Instructions Continue taking all of your current medications as prescribed. Add MiraLAX if you have more constipation. Problem Qualifiers Primary Impression: Constipation Constipation type: unspecified constipation type Qualified Codes: K59.00 - Constipation, unspecified
[2016-12-27 09:25] LABS: HEMATOCRIT 34.5 % (42-52); MEAN CELL VOLUME 82.7 fL (80-100); MEAN CORPUSCULAR HEMOGLOBIN 26.4 pg (25-34); MEAN CORPUSCULAR HGB CONC 31.9 g/dl (32-36); RED BLOOD COUNT 4.17 M/uL (4.7-6.1); WHITE BLOOD COUNT 2.69 K/uL (4.8-10.8)
[2016-12-27 09:36] LABS: BLOOD UREA NITROGEN 22 mg/dl (7-18); BUN/CREATININE RATIO 20.1 (10-20); CALCIUM 10.3 mg/dl (8.5-10.1); CARBON DIOXIDE 28 mmol/L (21-32); CHLORIDE 109 mmol/L (98-107); GLUCOSE 116 mg/dl (70-99); POTASSIUM 3.9 mmol/L (3.5-5.1); SODIUM 142 mmol/L (136-145)
[2016-12-27 09:45] LABS: INR 1.1 (0.9-1.1); PROTHROMBIN TIME (PATIENT) 11.7 SECONDS (9.0-12.0)
[2016-12-27 09:47] LABS: MEAN PLATELET VOLUME 11.2 fL (7.4-10.4); PLATELET COUNT 98 K/uL (130-400)
[2016-12-27] MEDS ORDERED: ENOX1INJ14 SQ (09:49)
[2016-12-27 09:53] LABS: COMPLETE YES; EOS % 1.9 %; IG% 0.7 %; LYMPH % 22.3 %; MONO % 4.5 %; NEUT % 70.6 %; PLT ESTIMATE DECREASED
[2016-12-27 11:25] VITALS: BP 124/64; PULSE 71; O2SAT 93
[2017-02-10] MEDS ORDERED: DLD2 PO (09:08)
[2017-02-10] MEDS ORDERED: MTH5 PO (09:08)
[2017-02-10] MEDS ORDERED: SERT50TA PO (09:08)
[2017-02-10] MEDS ORDERED: LCTS240 PO (09:08)
[2017-02-10] MEDS ORDERED: TEMA15CA4 PO (09:08)
[2017-02-10] MEDS ORDERED: DXM4 PO (09:08)
[2017-02-15] MEDS ORDERED: METH5TAB2 PO (12:55)
[2017-02-15] MEDS ORDERED: HYDR2TAB48 PO (12:55)
[2017-02-15] MEDS ORDERED: ONDA8TAB6 PO (12:55)
== END 2016-12-27 11:25 | disposition home or self-care (01) ==
LOC: C.EDB 08:19 → C.EDA 11:25
DX: K59.00 Constipation, unspecified (principal); C25.9 Malignant neoplasm of pancreas, unspecified; E11.42 Type 2 diabetes mellitus with diabetic polyneuropathy; I10 Essential (primary) hypertension; C79.51 Secondary malignant neoplasm of bone; C78.7 Secondary malignant neoplasm of liver and intrahepatic bile duct; Z87.01 Personal history of pneumonia (recurrent); Z80.9 Family history of malignant neoplasm, unspecified; Z83.3 Family history of diabetes mellitus; Z82.49 Family history of ischemic heart disease and other diseases of the circulatory system; Z84.1 Family history of disorders of kidney and ureter; Z82.0 Family history of epilepsy and other diseases of the nervous system; Z82.3 Family history of stroke; Z79.899 Other long term (current) drug therapy

== ENCOUNTER 2017-02-02 11:33 | Inpatient (IN) | payer OTHER ==
[~2017-02-02] VITALS: Ht 182.9 cm; Wt 98.3 kg
[~2017-02-02 11:33] MED LIST changes: -CMD5 PO; +ENOX1INJ14 SQ; -HYDR-5688 PO
[2017-02-02] MEDS ORDERED: SODIUM CHLORIDE 0.9% 1000ML 1,000 ML IV STA (12:05)
[2017-02-02] MEDS ORDERED: HYDROmorphone INJ 2 MG/ML SYR/VIAL IV STA (12:05)
[2017-02-02] MEDS ORDERED: SODIUM CHLORIDE 0.9% 1000ML 500 ML IV STA (12:05)
[2017-02-02] MEDS ORDERED: ONDANSETRON INJ 2 MG/ML 2 ML VIAL IV STA (12:05)
--- NOTE | 2017-02-02 12:10 | EMERGENCY ROOM VISIT NOTE ---
History Report prepared by Cornelius: Aishwarya Dela Cruz Under the Supervision of: Dr. Dano Rodriguez M.D. First contact with patient: 11:58 Chief Complaint: BACK PAIN Stated Complaint: L-BACK PAIN History of Present Illness The patient is a 81 year old male who presents to the Emergency Room with complaints of lower back pain that has worsened in the last 24 hours. The patient has a history of pancreatic cancer that has spread to his lower back. He is currently going through chemotherapy. He states that he has recently switched to Morphine for his pain. The patient took two morphine pills and 20 mg of oxycodone this morning with no relief. He took a second dose of oral morphine just before coming to the ER--he has had no pain relief. The patient denies any falls. He also is on Lovenox injections for a pulmonary embolism. He notes he is having a difficult time breathing but denies having any nausea or diarrhea. The patient notes he has no appetite. Source of History: patient Onset: 24 hours ago Position: back (lower) Timing: worsening Associated Symptoms: No nausea, No diarrhea Note: Pt notes difficulty breathing and loss of appetite. Review of Systems See HPI for pertinent positives & negatives. A total of 10 systems reviewed and were otherwise negative. Past Medical & Surgical Medical Problems: (1) Benign hypertension (2) Diabetes mellitus (3) Diabetic peripheral neuropathy associated with type 2 diabetes mellitus (4) Foot deformity (5) Hernia repair (6) History of diabetic ulcer of foot (7) Loss of sensation (8) Metastatic cancer (9) Pancreatic cancer (10) Pneumonia (11) Pulmonary embolism (12) Spinal stenosis Family History Blood clots Cancer Diabetes mellitus Gallbladder disease Heart disease Hypertension Kidney disease Kidney stones Seizures Stroke Social History Smoking Status: Former Smoker Alcohol Use: none Drug Use: none Marital Status: Housing Status: lives with significant other Occupation Status: retired Current/Historical Medications Scheduled Amlodipine Besylate (Norvasc), 5 MG PO QAM Cholecalciferol (Vitamin D3), 2,000 UNIT PO DAILY Cinacalcet (Sensipar), 30 MG PO QPM Cinacalcet (Sensipar), 60 MG PO QAM Cyanocobalamin (Vitamin B-12), 1,000 MCG PO QAM Dorzolamide Hcl-Timolol Maleat (Cosopt Oph), 1 DROPS OPL BID Enoxaparin Sodium (Enoxaparin Sodium), 150 MG SQ HS Folic Acid (Folic Acid), 1 MG PO QAM Ipratropium-Albuterol (Combivent Respimat), 1 PUFFS INH QID Lisinopril (Prinivil), 5 MG PO HS Sertraline (Zoloft), 50 MG PO DAILY Simvastatin (Zocor), 10 MG PO QPM Tamsulosin Hcl (Flomax), 0.4 MG PO DAILY Travoprost (Travatan Z), 1 DROP OPL HS Scheduled PRN Temazepam (Restoril), 15-30 MG PO HS PRN for Sleep Allergies Coded Allergies: Aspirin (Verified Allergy, Intermediate, ITCHING, FLUSHING, 02/02/17) Penicillins (Verified Allergy, Mild, RASH, 02/02/17) Adhesives (Verified Allergy, Unknown, RASH, 02/02/17) Physical Exam Vital Signs Date Time Temp Pulse Resp B/P (MAP) Pulse Ox O2 Delivery O2 Flow Rate FiO2 02/02/17 14:03 94 24 98 Nasal Cannula 2.0 02/02/17 14:01 139/85 02/02/17 13:33 87 22 93 02/02/17 13:32 87 02/02/17 13:31 172/77 02/02/17 13:12 120/64 02/02/17 11:39 36.5 98 22 141/72 98 Room Air Physical Exam GENERAL: Patient is in no acute distress. HEENT: No acute trauma, normocephalic atraumatic, mucous membranes dry, no nasal congestion, no scleral icterus. NECK: No stridor, no adenopathy, no meningismus, trachea is midline. LUNGS: Clear to auscultation bilaterally, no wheeze, no rhonchi, breath sounds equal. HEART: 3/6 systolic murmur, tachycardic rate with normal rhythm ABDOMEN: Soft, nontender, bowel sounds positive, no hernias, no peritonitis. EXTREMITIES: No cyanosis or edema, full range of motion of all the joints without pain or difficulty, no signs for acute trauma. NEUROLOGIC: Oriented x 3, no acute motor or sensory deficits, no focal weakness. SKIN: No rash, no jaundice, no diaphoresis. Medical Decision & Procedures ER Provider Diagnostic Interpretation: Radiology results as stated below per my review and radiologist interpretation: CHEST ONE VIEW PORTABLE FINDINGS: Patient is mildly rotated to the left. Left subclavian Gfgrio-z-Xxrv catheter is noted with distal tip terminating in the region of the SVC. Cardiac silhouette is mildly enlarged without pneumothorax, pleural effusion or focal airspace consolidation. Mild right hemidiaphragmatic elevation persists. The bones are grossly intact. IMPRESSION: No acute cardiopulmonary process. The above report was generated using voice recognition software. It may contain grammatical, syntax or spelling errors. Electronically signed by: Jv Spicer M.D. LUMBAR SPINE WITHOUT FINDINGS: Copy Editor topogram: Unremarkable. Normal lumbar lordosis. Vertebral body height of L4 with complex fracture planes primarily in a transverse orientation. Fracture planes do not appear to extend to the posterior elements. No retropulsion of fracture fragments. The appearance of the L4 vertebral body with osseous dissolution is suspicious for underlying neoplastic soft tissue. Surrounding mild perivertebral infiltration, possibly minimal hemorrhage. Resultant disc bulges superiorly and inferiorly at L3-4 and L4-5. Radiolucent lesion noted along the posterior inferior aspect of the L3 vertebral body. Questionable lucent lesion in the L2 vertebral body (series 2 on image 45). Multilevel degenerative changes most prominently anterior osteophytosis as well as disc bulges at multiple levels in addition to the above-mentioned disc bulges. Mild osseous neural foraminal narrowing at L4-5, left greater than right. No osseous spinal canal narrowing. The greatest degree of soft tissue spinal canal narrowing is suspected at L3-4 in part secondary to ligamentum flavum hypertrophy and facet arthropathy. Paraspinal soft tissues remarkable for dilatation of the left renal collecting system and proximal left ureter, new since prior exam. Dilatation of the right renal collecting system and right ureter is also new from prior. Minimal periureteral and perinephric fat stranding. Atherosclerosis. IMPRESSION: 1. Complex fracture of the L4 vertebral body, suspected pathologic fracture with underlying neoplastic involvement. Additional lytic lesion in the L3 vertebral body and possibly L2. These are highly suspicious for metastatic disease. 2. Multilevel degenerative changes including prominent disc bulges at L3-4 and L4-5 with spinal stenosis greatest at L3-4. The severity better demonstrated on MR. 3. Bilateral hydroureteronephrosis, new from prior. Electronically signed by: Hiren Duenas M.D. Laboratory Results 02/02/17 11:55 Red Blood Count 3.68, Mean Corpuscular Volume 85.3, Mean Corpuscular Hemoglobin 27.7, Mean Corpuscular Hemoglobin Concent 32.5, Mean Platelet Volume 11.1, Neutrophils (%) (Auto) 89.0, Lymphocytes (%) (Auto) 6.5, Monocytes (%) (Auto) 3.5, Eosinophils (%) (Auto) 0.6, Basophils (%) (Auto) 0.1, Neutrophils # (Auto) 7.10, Lymphocytes # (Auto) 0.52, Monocytes # (Auto) 0.28, Eosinophils # (Auto) 0.05, Basophils # (Auto) 0.01 02/02/17 11:55 Test 02/02/17 11:55 02/02/17 12:30 White Blood Count 7.98 K/uL (4.8-10.8) Red Blood Count 3.68 M/uL (4.7-6.1) Hemoglobin 10.2 g/dL (14.0-18.0) Hematocrit 31.4 % (42-52) Mean Corpuscular Volume 85.3 fL (80-100) Mean Corpuscular Hemoglobin 27.7 pg (25-34) Mean Corpuscular Hemoglobin Concent 32.5 g/dl (32-36) Platelet Count 126 K/uL (130-400) Mean Platelet Volume 11.1 fL (7.4-10.4) Neutrophils (%) (Auto) 89.0 % Lymphocytes (%) (Auto) 6.5 % Monocytes (%) (Auto) 3.5 % Eosinophils (%) (Auto) 0.6 % Basophils (%) (Auto) 0.1 % Neutrophils # (Auto) 7.10 K/uL (1.4-6.5) Lymphocytes # (Auto) 0.52 K/uL (1.2-3.4) Monocytes # (Auto) 0.28 K/uL (0.11-0.59) Eosinophils # (Auto) 0.05 K/uL (0-0.5) Basophils # (Auto) 0.01 K/uL (0-0.2) RDW Standard Deviation 59.1 fL (36.4-46.3) RDW Coefficient of Variation 18.9 % (11.5-14.5) Immature Granulocyte % (Auto) 0.3 % Immature Granulocyte # (Auto) 0.02 K/uL (0.00-0.02) Prothrombin Time 12.0 SECONDS (9.0-12.0) Prothromb Time International Ratio 1.1 (0.9-1.1) Activated Partial Thromboplast Time 37.1 SECONDS (21.0-31.0) Partial Thromboplastin Ratio 1.4 Anion Gap 8.0 mmol/L (3-11) Est Creatinine Clear Calc Drug Dose 65.7 ml/min Estimated GFR () 72.1 Estimated GFR (Non- 62.2 BUN/Creatinine Ratio 18.4 (10-20) Calcium Level 9.2 mg/dl (8.5-10.1) Total Bilirubin 1.0 mg/dl (0.2-1) Aspartate Amino Transf (AST/SGOT) 53 U/L (15-37) Alanine Aminotransferase (ALT/SGPT) 38 U/L (12-78) Alkaline Phosphatase 181 U/L (45-117) Total Protein 6.0 gm/dl (6.4-8.2) Albumin 2.5 gm/dl (3.4-5.0) Globulin 3.5 gm/dl (2.5-4.0) Albumin/Globulin Ratio 0.7 (0.9-2) Urine Color DK YELLOW Urine Appearance CLEAR (CLEAR) Urine pH 5.0 (4.5-7.5) Urine Specific [place] 1.022 (1.000-1.030) Urine Protein NEG (NEG) Urine Glucose (UA) TRACE (NEG) Urine Ketones NEG (NEG) Urine Occult Blood NEG (NEG) Urine Nitrite NEG (NEG) Urine Bilirubin NEG (NEG) Urine Urobilinogen NEG (NEG) Urine Leukocyte Esterase TRACE (NEG) Urine WBC (Auto) 1-5 /hpf (0-5) Urine RBC (Auto) 5-10 /hpf (0-4) Urine Hyaline Casts (Auto) 1-5 /lpf (0-5) Urine Epithelial Cells (Auto) 20-30 /lpf (0-5) Urine Bacteria (Auto) NEG (NEG) Laboratory results reviewed by me. Medications Administered Medications (Trade) Dose Ordered Sig/Jay Route Start Time Stop Time Status Last Admin Dose Admin Sodium Chloride 500 ml @ 999 mls/hr Q31M STAT IV 02/02/17 12:05 02/02/17 12:35 DC 02/02/17 12:45 999 MLS/HR Ondansetron HCl (Zofran Inj) 4 mg NOW STAT IV 02/02/17 12:05 02/02/17 12:10 DC 02/02/17 12:45 4 MG Sodium Chloride 1,000 ml @ 200 mls/hr Q5H STAT IV 02/02/17 12:05 02/02/17 15:54 DC 02/02/17 12:45 200 MLS/HR Hydromorphone HCl (Dilaudid Inj) 1 mg NOW STAT IV 02/02/17 12:05 02/02/17 12:10 DC 02/02/17 12:45 1 MG ECG Indication: back/shoulder pain Rate (beats per minute): 92 Rhythm: normal sinus Findings: no acute ischemic change, no ectopy ED Course 1200: The patient was evaluated in room B11B. A complete history and physical exam was performed. 1205: Dilaudid Inj 1 mg IV, Sodium Chloride 1000 ml @ 200 mls/hr IV, Zofran Inj 4 mg IV, Sodium Chloride 500 ml @ 999 mls/hr IV. 1215: Dilaudid 0.5 mg IV. 1356: I talked to the patient, he is willing to be admitted to the hospital. 1405: Discussed the patient's case [facility] The patient will be evaluated for further management. 1407: Upon reexamination the patient is resting. I discussed results and treatment plan with the patient. He verbalizes agreement and understanding. The patient will be evaluated for further management. Medical Decision Differential diagnosis includes but is not limited too: worsening metastatic cancer, dehydration, chemotherapy effect, electrolyte imbalance, UTI, renal failure, viral infection. There is no leukocytosis. The patient is somewhat anemic with a lower platelet count, the anemia and thrombocytopenia have been documented before. No significant electrolyte abnormality or kidney failure. There is no hepatitis or coagulopathy. Chest x-ray does not show pneumonia or CHF. Urinalysis does not show infection. EKG shows a normal sinus rhythm, no acute ischemia. Lumbar spine CT shows a pathologic fracture to L4 with lytic lesions on L3 and L2. The patient received IV saline, IV Zofran, IV Dilaudid. He is more comfortable but still has pain with any movement. The patient's pain is severe. The pain is from the compression fracture coupled with the lytic lesions. He is in no condition to be discharged home. Admission/observation is warranted. I spoke to the patient and case management assistant. The on-call hospitalist was consulted. Medication Reconcilliation Current Medication List: was personally reviewed by me Blood Pressure Screening Patient's blood pressure: Elevated blood pressure Blood pressure disposition: Elevated BP felt to be situational Consults Time Called: 1403 Consulting Physician: Dr. Lydia HEATH Returned Call: 1405 Discussed the patient's case. The patient will be evaluated for further management. Impression Primary Impression: Fracture of lumbar spine Additional Impressions: 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 cancer Lower back pain Weakness Scribe Attestation The scribe's documentation has been prepared under my direction and personally reviewed by me in its entirety. I confirm that the note above accurately reflects all work, treatment, procedures, and medical decision making performed by me. Departure Information Dispostion Being Evaluated By Hospitalist Referrals Larry Finch M.D. (PCP) Patient Instructions My [facility] Problem Qualifiers
[2017-02-02] MEDS ORDERED: HYDROmorphone INJ 2 MG/ML SYR/VIAL IV PRN (12:15)
[2017-02-02 12:22] LABS: BASO % 0.1 %; BASO ABS # 0.01 K/uL (0-0.2); COMPLETE YES; EOS % 0.6 %; HEMATOCRIT 31.4 % (42-52); IG% 0.3 %; LYMPH % 6.5 %; LYMPH ABS # 0.52 K/uL (1.2-3.4); MEAN CELL VOLUME 85.3 fL (80-100); MEAN CORPUSCULAR HEMOGLOBIN 27.7 pg (25-34); MEAN CORPUSCULAR HGB CONC 32.5 g/dl (32-36); MEAN PLATELET VOLUME 11.1 fL (7.4-10.4); MONO % 3.5 %; PLATELET COUNT 126 K/uL (130-400); RED BLOOD COUNT 3.68 M/uL (4.7-6.1); WHITE BLOOD COUNT 7.98 K/uL (4.8-10.8)
--- NOTE | 2017-02-02 12:35 | DIAGNOSTIC IMAGING REPORT ---
CHEST ONE VIEW PORTABLE HISTORY: 81 years-old Male EVALUATE ALTERED MENTAL STATUS/WEAKNESS COMPARISON: Portal chest radiograph 12/14/2016 TECHNIQUE: Portable upright AP view of the chest FINDINGS: Patient is mildly rotated to the left. Left subclavian Emtxzn-o-Gdhf catheter is noted with distal tip terminating in the region of the SVC. Cardiac silhouette is mildly enlarged without pneumothorax, pleural effusion or focal airspace consolidation. Mild right hemidiaphragmatic elevation persists. The bones are grossly intact. IMPRESSION: No acute cardiopulmonary process. The above report was generated using voice recognition software. It may contain grammatical, syntax or spelling errors. Electronically signed by: Jv Spicer M.D. 02/02/2017 12:34 PM Dictated Date/Time: 02/02/2017 12:33 PM
[2017-02-02 12:36] LABS: INR 1.1 (0.9-1.1); PARTIAL THROMBOPLASTIN RATIO 1.4
[2017-02-02 12:38] LABS: ALB/GLOB RATIO 0.7 (0.9-2); BUN/CREATININE RATIO 18.4 (10-20); CALCIUM 9.2 mg/dl (8.5-10.1); CREATININE 1.1 mg/dl (0.60-1.40); POTASSIUM 3.9 mmol/L (3.5-5.1)
[2017-02-02 13:11] LABS: URINE APPEARANCE CLEAR (CLEAR); URINE BILIRUBIN NEG (NEG); URINE COLOR DK YELLOW; URINE EPITHELIAL CELL AUTO 20-30 /lpf (0-5); URINE NITRITE NEG (NEG); URINE SPECIFIC GRAVITY 1.022 (1.000-1.030); UROBILINOGEN NEG (NEG); ZZURINE CULT IF INDIC CATH NO
[2017-02-02 13:17] LABS: MANUAL MICROSCOPIC REQUIRED? NO; REVIEW REQ? NO
--- NOTE | 2017-02-02 13:24 | DIAGNOSTIC IMAGING REPORT ---
LUMBAR SPINE WITHOUT CLINICAL HISTORY: 81 years-old Male presenting with met ca to back, worse, cant walk. TECHNIQUE: Multidetector CT of the lumbar spine was performed without the use of intravenous contrast. IV contrast: None. A dose lowering technique was used consistent with the principles of ALARA (as low as reasonably achievable). COMPARISON: CT from 12/01/2016. CT DOSE (mGy.cm): The estimated cumulative dose is 2342.52 mGy.cm. FINDINGS: Machinery Cleaner topogram: Unremarkable. Normal lumbar lordosis. Vertebral body height of L4 with complex fracture planes primarily in a transverse orientation. Fracture planes do not appear to extend to the posterior elements. No retropulsion of fracture fragments. The appearance of the L4 vertebral body with osseous dissolution is suspicious for underlying neoplastic soft tissue. Surrounding mild perivertebral infiltration, possibly minimal hemorrhage. Resultant disc bulges superiorly and inferiorly at L3-4 and L4-5. Radiolucent lesion noted along the posterior inferior aspect of the L3 vertebral body. Questionable lucent lesion in the L2 vertebral body (series 2 on image 45). Multilevel degenerative changes most prominently anterior osteophytosis as well as disc bulges at multiple levels in addition to the above-mentioned disc bulges. Mild osseous neural foraminal narrowing at L4-5, left greater than right. No osseous spinal canal narrowing. The greatest degree of soft tissue spinal canal narrowing is suspected at L3-4 in part secondary to ligamentum flavum hypertrophy and facet arthropathy. Paraspinal soft tissues remarkable for dilatation of the left renal collecting system and proximal left ureter, new since prior exam. Dilatation of the right renal collecting system and right ureter is also new from prior. Minimal periureteral and perinephric fat stranding. Atherosclerosis. IMPRESSION: 1. Complex fracture of the L4 vertebral body, suspected pathologic fracture with underlying neoplastic involvement. Additional lytic lesion in the L3 vertebral body and possibly L2. These are highly suspicious for metastatic disease. 2. Multilevel degenerative changes including prominent disc bulges at L3-4 and L4-5 with spinal stenosis greatest at L3-4. The severity better demonstrated on MR. 3. Bilateral hydroureteronephrosis, new from prior. Electronically signed by: Hiren Duenas M.D. 02/02/2017 1:23 PM Dictated Date/Time: 02/02/2017 1:14 PM
[2017-02-02] MEDS ORDERED: ZOLPIDEM TARTRATE 5 MG TAB PO PRN (14:15)
[2017-02-02] MEDS ORDERED: HYDROmorphone INJ 1 MG/ML SYR IV PRN (14:30)
[2017-02-02] MEDS ORDERED: ONDANSETRON INJ 2 MG/ML 2 ML VIAL IV PRN (14:30)
[2017-02-02] MEDS ORDERED: FENTANYL 50 MCG/HR TDSY TD SCH (14:30)
[2017-02-02] MEDS ORDERED: HYDROmorphone INJ 0.5 MG/0.5 ML SYR ONE (15:05)
--- NOTE | 2017-02-02 15:50 | DIAGNOSTIC IMAGING REPORT ---
ABDOMINAL ULTRASOUND COMPLETE HISTORY: Abnormal CT scan. NEW B/L HYDRONEPHROSIS. COMPARISON: Lumbar spine CT 02/02/2017. Abdomen and pelvis CT 12/01/2016. FINDINGS: Pancreas: Obscured by overlying bowel gas. Liver: 22 cm in length. The liver is heterogeneous containing multiple masses as seen on the prior studies. Largest lesion measures 3.7 cm. Gallbladder: No gallbladder wall thickening. No gallstones. CBD: 6 mm. Kidneys: A 1.1 cm stone within the left kidney. Bilateral mild hydronephrosis. Bladder is distended with a volume of 1605 cc. There is a 2.1 cm stone within the bladder. Spleen: Enlarged measuring 17.6 cm in length. Aorta: Normal in caliber. IMPRESSION: 1. Bilateral hydronephrosis. This may be secondary to bladder outlet obstruction as the bladder is significantly distended demonstrating a volume of 1605 cc. Recommend catheterization. 2. Left-sided nephrolithiasis and a 2.1 cm bladder stone. 3. Multiple hepatic masses are again noted. 4. Splenomegaly. Electronically signed by: Jorge Luis Gu M.D. 02/02/2017 3:48 PM Dictated Date/Time: 02/02/2017 3:43 PM
[2017-02-02 16:00] VITALS: BP_SYST 177; BP_SYST 186; BP_DIAS 70; BP_DIAS 90; PULSE 103; TEMP 36.8; O2SAT 96
[2017-02-02] MEDS ORDERED: FENTANYL 25 MCG/HR TDSY TD SCH (18:00)
[2017-02-02] MEDS: FAMOTIDINE IV INJ 20 MG in DEXTROSE 5% 100ML 100 ML IV SCH (18:03)
[2017-02-02] MEDS: IPRATROPIUM BROMIDE/ALBUTEROL respimat INH INH SCH ×2 (18:11→21:36)
--- NOTE | 2017-02-02 20:17 | History and Physical ---
History & Physical Date & Time of Service: Feb 02, 2017 at 19:58 Chief Complaint: Fracture Of Lumbar Spine, Mestatasis From Primary Care Physician: Larry Finch M.D. History of Present Illness Source: patient, hospital records The patient is an 81-year-old male who presents to the emergency department with worsening lower back pain over the past 24 hours. 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 He was started on morphine pills and oxycodone this morning, but found no relief, and came to the emergency department for assessment. He is also presently on Lovenox for pulmonary embolism and and still has some difficulty with breathing. Past Medical/Surgical History Medical Problems: (1) Benign hypertension Status: Chronic (2) Diabetes mellitus Status: Chronic (3) Hernia repair Status: Resolved (4) Pancreatic cancer Status: Chronic (5) Pneumonia Status: Resolved (6) Pulmonary embolism Status: Chronic (7) Spinal stenosis Status: Chronic Family History Blood clots Cancer Diabetes mellitus Gallbladder disease Heart disease Hypertension Kidney disease Kidney stones Seizures Stroke Social History Smoking Status: Unknown if Ever Smoked Smokeless Tobacco Use: No Alcohol Use: none Drug Use: none Marital Status: Housing status: lives with family Occupational Status: retired Immunizations History of Influenza Vaccine: Yes History of Tetanus Vaccine?: Yes History of Pneumococcal: Yes History of Hepatitis B Vaccine: No Multi-Drug Resistant Organisms History of MDRO: No Allergies Coded Allergies: Aspirin (Verified Allergy, Intermediate, ITCHING, FLUSHING, 02/02/17) Penicillins (Verified Allergy, Mild, RASH, 02/02/17) Adhesives (Verified Allergy, Unknown, RASH, 02/02/17) Home Medications Scheduled Amlodipine Besylate (Norvasc), 5 MG PO QAM Cholecalciferol (Vitamin D3), 2,000 UNIT PO DAILY Cinacalcet (Sensipar), 30 MG PO QPM Cinacalcet (Sensipar), 60 MG PO QAM Cyanocobalamin (Vitamin B-12), 1,000 MCG PO QAM Dorzolamide Hcl-Timolol Maleat (Cosopt Oph), 1 DROPS OPL BID Enoxaparin Sodium (Enoxaparin Sodium), 150 MG SQ HS Folic Acid (Folic Acid), 1 MG PO QAM Ipratropium-Albuterol (Combivent Respimat), 1 PUFFS INH QID Lisinopril (Prinivil), 5 MG PO HS Sertraline (Zoloft), 50 MG PO DAILY Simvastatin (Zocor), 10 MG PO QPM Tamsulosin Hcl (Flomax), 0.4 MG PO DAILY Travoprost (Travatan Z), 1 DROP OPL HS Scheduled PRN Temazepam (Restoril), 15-30 MG PO HS PRN for Sleep Review of Systems The patient denies chest pain, palpitations, cough, lower extremity swelling, vision change, hearing change, sore throat, fevers, chills, sweats, weight change, fatigue, nausea, vomiting, diarrhea or constipation, abdominal pain, pelvic pain, blood in urine or stool, dysuria, urinary frequency or urgency, lightheadedness, dizziness, headache, memory loss, rash, abnormal bruising or bleeding, focal or generalized weakness, numbness or tingling in arms generalized arthralgias or myalgias, neck pain, night sweats, or allergy symptoms. The review of systems is otherwise negative other than for that already noted above, and at least 10 systems have been reviewed. Physical Exam Vital Signs Date Time Temp Pulse Resp B/P (MAP) Pulse Ox O2 Delivery O2 Flow Rate FiO2 02/02/17 16:00 Nasal Cannula 2.0 02/02/17 16:00 36.8 103 20 177/90 (119) 96 Nasal Cannula 2.0 186/70 (108) 02/02/17 15:07 96 20 166/87 96 Nasal Cannula 2.0 02/02/17 14:53 89 22 114/70 97 02/02/17 14:03 94 24 98 Nasal Cannula 2.0 02/02/17 14:01 139/85 02/02/17 13:33 87 22 93 02/02/17 13:32 87 02/02/17 13:31 172/77 02/02/17 13:12 120/64 02/02/17 11:39 36.5 98 22 141/72 98 Room Air The patient is awake, well-developed and adequately nourished, alert and oriented 3, normocephalic and atraumatic, lying in bed and in moderate acute distress due to lumbar pain with any movement. HEENT--PERRL, EOMI, mucous membranes and oropharynx dry. Neck--supple, no JVD or bruits, thyroid normal, trachea midline, no adenopathy. Heart--normal S1 and S2, no extra beats, no murmurs, rubs or gallops. Lungs--clear bilaterally, no respiratory distress, no accessory muscle use. Abdomen--normal bowel sounds and soft, nontender and nondistended, no hernias or masses, no organomegaly. Extremities--no cyanosis, clubbing or edema. There are good distal pulses b/l. Dermatologic--normal skin turgor, normal color, warm and dry, no abnormal lymph nodes, no rash. Neurologic--cranial nerves II through XII grossly intact. Rheumatologic--reproducible pain over lumbar spine region. Psychiatric--normal affect. Diagnostics Laboratory Results Results Past 24 Hours Test 02/02/17 11:55 02/02/17 12:30 Range/Units White Blood Count 7.98 4.8-10.8 K/uL Red Blood Count 3.68 4.7-6.1 M/uL Hemoglobin 10.2 14.0-18.0 g/dL Hematocrit 31.4 42-52 % Mean Corpuscular Volume 85.3 80-100 fL Mean Corpuscular Hemoglobin 27.7 25-34 pg Mean Corpuscular Hemoglobin Concent 32.5 32-36 g/dl Platelet Count 126 130-400 K/uL Mean Platelet Volume 11.1 7.4-10.4 fL Neutrophils (%) (Auto) 89.0 % Lymphocytes (%) (Auto) 6.5 % Monocytes (%) (Auto) 3.5 % Eosinophils (%) (Auto) 0.6 % Basophils (%) (Auto) 0.1 % Neutrophils # (Auto) 7.10 1.4-6.5 K/uL Lymphocytes # (Auto) 0.52 1.2-3.4 K/uL Monocytes # (Auto) 0.28 0.11-0.59 K/uL Eosinophils # (Auto) 0.05 0-0.5 K/uL Basophils # (Auto) 0.01 0-0.2 K/uL RDW Standard Deviation 59.1 36.4-46.3 fL RDW Coefficient of Variation 18.9 11.5-14.5 % Immature Granulocyte % (Auto) 0.3 % Immature Granulocyte # (Auto) 0.02 0.00-0.02 K/uL Prothrombin Time 12.0 9.0-12.0 SECONDS Prothromb Time International Ratio 1.1 0.9-1.1 Activated Partial Thromboplast Time 37.1 21.0-31.0 SECONDS Partial Thromboplastin Ratio 1.4 Sodium Level 140 136-145 mmol/L Potassium Level 3.9 3.5-5.1 mmol/L Chloride Level 105 98-107 mmol/L Carbon Dioxide Level 27 21-32 mmol/L Anion Gap 8.0 3-11 mmol/L Blood Urea Nitrogen 20 7-18 mg/dl Creatinine 1.10 0.60-1.40 mg/dl Est Creatinine Clear Calc Drug Dose 65.7 ml/min Estimated GFR () 72.1 Estimated GFR (Non- 62.2 BUN/Creatinine Ratio 18.4 10-20 Random Glucose 95 70-99 mg/dl Calcium Level 9.2 8.5-10.1 mg/dl Total Bilirubin 1.0 0.2-1 mg/dl Aspartate Amino Transf (AST/SGOT) 53 15-37 U/L Alanine Aminotransferase (ALT/SGPT) 38 12-78 U/L Alkaline Phosphatase 181 45-117 U/L Total Protein 6.0 6.4-8.2 gm/dl Albumin 2.5 3.4-5.0 gm/dl Globulin 3.5 2.5-4.0 gm/dl Albumin/Globulin Ratio 0.7 0.9-2 Urine Color DK YELLOW Urine Appearance CLEAR CLEAR Urine pH 5.0 4.5-7.5 Urine Specific Cascilla 1.022 1.000-1.030 Urine Protein NEG NEG Urine Glucose (UA) TRACE NEG Urine Ketones NEG NEG Urine Occult Blood NEG NEG Urine Nitrite NEG NEG Urine Bilirubin NEG NEG Urine Urobilinogen NEG NEG Urine Leukocyte Esterase TRACE NEG Urine WBC (Auto) 1-5 0-5 /hpf Urine RBC (Auto) 5-10 0-4 /hpf Urine Hyaline Casts (Auto) 1-5 0-5 /lpf Urine Epithelial Cells (Auto) 20-30 0-5 /lpf Urine Bacteria (Auto) NEG NEG Diagnostic Radiology Patient Name: GABRIEL CAMILO Unit Number: [id number] Dictated: 02/02/17 1314 Transcribed: 02/02/171313 [facility] Printed Date/Time: [~ rep prt dt]/[~ rep prt tm] [~ rep ct labl] - [~ rep ct ivnm] [facility] Radiology Department [place], [place] [id number] Dictated: 02/02/171313 Transcribed: 02/02/171313 [facility] Printed Date/Time: [~ rep prt dt]/[~ rep prt tm] [~ rep ct labl] - [~ rep ct ivnm] LUMBAR SPINE WITHOUT CLINICAL HISTORY: 81 years-old Male presenting with met ca to back, worse, cant walk. TECHNIQUE: Multidetector CT of the lumbar spine was performed without the use of intravenous contrast. IV contrast: None. A dose lowering technique was used consistent with the principles of ALARA (as low as reasonably achievable). COMPARISON: CT from 12/01/2016. CT DOSE (mGy.cm): The estimated cumulative dose is 2342.52 mGy.cm. FINDINGS: Product Development Carpenter topogram: Unremarkable. Normal lumbar lordosis. Vertebral body height of L4 with complex fracture planes primarily in a transverse orientation. Fracture planes do not appear to extend to the posterior elements. No retropulsion of fracture fragments. The appearance of the L4 vertebral body with osseous dissolution is suspicious for underlying neoplastic soft tissue. Surrounding mild perivertebral infiltration, possibly minimal hemorrhage. Resultant disc bulges superiorly and inferiorly at L3-4 and L4-5. Radiolucent lesion noted along the posterior inferior aspect of the L3 vertebral body. Questionable lucent lesion in the L2 vertebral body (series 2 on image 45). Multilevel degenerative changes most prominently anterior osteophytosis as well as disc bulges at multiple levels in addition to the above-mentioned disc bulges. Mild osseous neural foraminal narrowing at L4-5, left greater than right. No osseous spinal canal narrowing. The greatest degree of soft tissue spinal canal narrowing is suspected at L3-4 in part secondary to ligamentum flavum hypertrophy and facet arthropathy. Paraspinal soft tissues remarkable for dilatation of the left renal collecting system and proximal left ureter, new since prior exam. Dilatation of the right renal collecting system and right ureter is also new from prior. Minimal periureteral and perinephric fat stranding. Atherosclerosis. IMPRESSION: 1. Complex fracture of the L4 vertebral body, suspected pathologic fracture with underlying neoplastic involvement. Additional lytic lesion in the L3 vertebral body and possibly L2. These are highly suspicious for metastatic disease. 2. Multilevel degenerative changes including prominent disc bulges at L3-4 and L4-5 with spinal stenosis greatest at L3-4. The severity better demonstrated on MR. 3. Bilateral hydroureteronephrosis, new from prior. Electronically signed by: Hiren Duenas M.D. 02/02/2017 1:23 PM Dictated Date/Time: 02/02/2017 1:14 PM The status of this report is Signed. Draft = Not yet reviewed or approved by Radiologist. Signed = Reviewed and approved by Radiologist. <AttendingPhy></AttendingPhy> <FamilyPhy>Larry Finch M.D.</FamilyPhy> < PrimaryPhy>Larry Finch M.D.</PrimaryPhy> <UnitNumber>[id number]</UnitNumber > <VisitNumber>[id number]</VisitNumber> <PatientName>GABRIEL CAMILO</ PatientName> <DateOfBirth>1935</DateOfBirth> <Location>[facility]</Location> < ServiceDate>02/02/17</ServiceDate> <MNE>ESINDI</MNE> <OrderingPhy>Dano Rodriguez M.D.</OrderingPhy> <OrderingPhyMNE>f rep ord dr bradley</OrderingPhyMNE> < DictatingPhyMNE>f rep dict dr bradley</DictatingPhyMNE> <CCListMNE>f rep ct kirk</ CCListMNE> <AdmittingPhyMNE>f pt admit dr bradley</AdmittingPhyMNE> <AttendingPhyMNE >f pt attend dr bradley</AttendingPhyMNE> <ConsultingPhyMNE>f pt consult dr bradley</ConsultingPhyMNE> <FamilyPhyMNE>f pt fam dr bradley</FamilyPhyMNE> <OtherPhyMNE>f pt other dr bradley</OtherPhyMNE> < PrimaryPhyMNE>f pt prim care dr bradley</PrimaryPhyMNE> <ReferringPhyMNE>f pt referring dr bradley</ReferringPhyMNE> Patient Name: GABRIEL CAMILO Unit Number: [id number] Dictated: 02/02/17 1233 Transcribed: 02/02/17 123 JRB Printed Date/Time: [~ rep prt dt]/[~ rep prt tm] [~ rep ct labl] - [~ rep ct ivnm] [facility] [place] [address] Dictated: 02/02/17 1233 Transcribed: 02/02/17 1233 JRB Printed Date/Time: [~ rep prt dt]/[~ rep prt tm] [~ rep ct labl] - [~ rep ct ivnm] CHEST ONE VIEW PORTABLE HISTORY: 81 years-old Male EVALUATE ALTERED MENTAL STATUS/WEAKNESS COMPARISON: Portal chest radiograph 12/14/2016 TECHNIQUE: Portable upright AP view of the chest FINDINGS: Patient is mildly rotated to the left. Left subclavian Eudbci-y-Czzl catheter is noted with distal tip terminating in the region of the SVC. Cardiac silhouette is mildly enlarged without pneumothorax, pleural effusion or focal airspace consolidation. Mild right hemidiaphragmatic elevation persists. The bones are grossly intact. IMPRESSION: No acute cardiopulmonary process. The above report was generated using voice recognition software. It may contain grammatical, syntax or spelling errors. Electronically signed by: Jv Spicer M.D. 02/02/2017 12:34 PM Dictated Date/Time: 02/02/2017 12:33 PM The status of this report is Signed. Draft = Not yet reviewed or approved by Radiologist. Signed = Reviewed and approved by Radiologist. <AttendingPhy></AttendingPhy> <FamilyPhy>Larry Finch M.D.</FamilyPhy> < PrimaryPhy>Larry Finch M.D.</PrimaryPhy> <UnitNumber>[id number]</UnitNumber > <VisitNumber>[id number]</VisitNumber> <PatientName>GABRIEL CAMILO</ PatientName> <DateOfBirth>1935</DateOfBirth> <Location>[facility]</Location> < ServiceDate>02/02/17</ServiceDate> <MNE>ESINDI</MNE> <OrderingPhy>Dano Rodriguez M.D.</OrderingPhy> <OrderingPhyMNE>f rep ord dr bradley</OrderingPhyMNE> < DictatingPhyMNE>f rep dict dr bradley</DictatingPhyMNE> <CCListMNE>f rep ct mne</ CCListMNE> <AdmittingPhyMNE>f pt admit dr bradley</AdmittingPhyMNE> <AttendingPhyMNE >f pt attend dr bradley</AttendingPhyMNE> <ConsultingPhyMNE>f pt consult dr bradley</ConsultingPhyMNE> <FamilyPhyMNE>f pt fam dr bradley</FamilyPhyMNE> <OtherPhyMNE>f pt other dr bradley</OtherPhyMNE> < PrimaryPhyMNE>f pt prim care dr bradley</PrimaryPhyMNE> <ReferringPhyMNE>f pt referring dr bradley</ReferringPhyMNE> Patient Name: GABRIEL CAMILO Unit Number: [id number] Dictated: 02/02/171542 Transcribed: 02/02/171542 [facility] Printed Date/Time: [~ rep prt dt]/[~ rep prt tm] [~ rep ct labl] - [~ rep ct ivnm] [facility] Radiology Department [place] [id number] Dictated: 02/02/171542 Transcribed: 02/02/171542 [facility] Printed Date/Time: [~ rep prt dt]/[~ rep prt tm] [~ rep ct labl] - [~ rep ct ivnm] ABDOMINAL ULTRASOUND COMPLETE HISTORY: Abnormal CT scan. NEW B/L HYDRONEPHROSIS. COMPARISON: Lumbar spine CT 02/02/2017. Abdomen and pelvis CT 12/01/2016. FINDINGS: Pancreas: Obscured by overlying bowel gas. Liver: 22 cm in length. The liver is heterogeneous containing multiple masses as seen on the prior studies. Largest lesion measures 3.7 cm. Gallbladder: No gallbladder wall thickening. No gallstones. CBD: 6 mm. Kidneys: A 1.1 cm stone within the left kidney. Bilateral mild hydronephrosis. Bladder is distended with a volume of 1605 cc. There is a 2.1 cm stone within the bladder. Spleen: Enlarged measuring 17.6 cm in length. Aorta: Normal in caliber. IMPRESSION: 1. Bilateral hydronephrosis. This may be secondary to bladder outlet obstruction as the bladder is significantly distended demonstrating a volume of 1605 cc. Recommend catheterization. 2. Left-sided nephrolithiasis and a 2.1 cm bladder stone. 3. Multiple hepatic masses are again noted. 4. Splenomegaly. Electronically signed by: Jorge Luis Gu M.D. 02/02/2017 3:48 PM Dictated Date/Time: 02/02/2017 3:43 PM The status of this report is Signed. Draft = Not yet reviewed or approved by Radiologist. Signed = Reviewed and approved by Radiologist. <AttendingPhy></AttendingPhy> <FamilyPhy>Larry Finch M.D.</FamilyPhy> < PrimaryPhy>Larry Finch M.D.</PrimaryPhy> <UnitNumber>[id number]</UnitNumber > <VisitNumber>[id number]</VisitNumber> <PatientName>GABRIEL CAMILO</ PatientName> <DateOfBirth>1935</DateOfBirth> <Location>[facility]</Location> < ServiceDate>02/02/17</ServiceDate> <MNE>ESINDI</MNE> <OrderingPhy>Darin Evans M.D.</OrderingPhy> <OrderingPhyMNE>f rep ord dr bradley</OrderingPhyMNE> < DictatingPhyMNE>f rep dict dr bradley</DictatingPhyMNE> <CCListMNE>f rep ct kirk</ CCListMNE> <AdmittingPhyMNE>f pt admit dr bradley</AdmittingPhyMNE> <AttendingPhyMNE >f pt attend dr bradley</AttendingPhyMNE> <ConsultingPhyMNE>f pt consult dr bradley</ConsultingPhyMNE> <FamilyPhyMNE>f pt fam dr bradley</FamilyPhyMNE> <OtherPhyMNE>f pt other dr bradley</OtherPhyMNE> < PrimaryPhyMNE>f pt prim care dr bradley</PrimaryPhyMNE> <ReferringPhyMNE>f pt referring dr bradley</ReferringPhyMNE> EKG EKG shows normal sinus rhythm at 92 bpm, there are no acute ST-T changes. Impression Assessment and Plan L4 complex fracture/L2 and L3 lytic lesions/multilevel degenerative changes with prominent disc bulges L3- 4 and L4- 5--the patient will be admitted to the medical floor for pain management. Start fentanyl patch 25 g changing every 3 days. Dilaudid 0.5-1 mg IV every 2 hours when necessary. We'll titrate the above as needed for pain control. Bilateral hydroureteronephrosis secondary to Bladder outlet obstruction-- increase tamsulosin from 0.4-0.[address] a Loving catheter. Pulmonary embolism--continue enoxaparin 150 mg subcutaneous at bedtime. Continue Combivent 1 puff inhaled 4 times a day. Hypertension--continue lisinopril 5 mg by mouth at bedtime and amlodipine 5 mg by mouth every morning. Hyperlipidemia--continue simvastatin 10 mg by mouth every afternoon. Depression--continue sertraline 50 mg by mouth daily. Glaucoma--continue Cosopt and Travatan Z Pancreatic cancer -consult Dr. Cage Continue Sensipar, vitamin B12 and folic acid. Level of Care Med/Surg Advanced Directives Existing Advance Directive: No Existing Living Will: No Existing Power of Clinical Orthoptist: No VTE Prophylaxis VTE Risk Assessment Done? Y/N: Yes Risk Level: Moderate Given or contraindicated: Enoxaparin (Lovenox)SQ Social Service Consult Cancer Patient Under [place]
[2017-02-02 20:54] VITALS: BP 164/73; PULSE 96; TEMP 37; O2SAT 97
[2017-02-02] MEDS: DORZOLAMIDE/TIMOLOL 22.3/6.8MG/ML 10 ML BTL OPL SCH (21:36)
[2017-02-02] MEDS: ENOXAPARIN 150 MG/1ML SYR SQ SCH (21:36)
[2017-02-02] MEDS: LISINOPRIL 5 MG TAB PO SCH (21:37)
[2017-02-02] MEDS: TRAVOPROST Z 0.004% OPH SOLN 2.5 ML BTL OPL SCH (21:37)
[2017-02-02] MEDS: TAMSULOSIN HCL 0.4 MG CAP PO SCH (21:38)
[2017-02-02] MEDS: SIMVASTATIN 10 MG TAB PO SCH (21:38)
[2017-02-02] MEDS: CHECK FENTANYL PATCH PLACEMENT SCH (23:49)
[2017-02-03] VITALS (9 sets, daily range): BP systolic 111–130; BP diastolic 50–73; PULSE 74–89; TEMP 36.6–37.2; O2SAT 92–97; BMI 31.6
[2017-02-03] MEDS: FAMOTIDINE IV INJ 20 MG in DEXTROSE 5% 100ML 100 ML IV SCH (05:43)
[2017-02-03 06:33] LABS: BASO % 0.1 %; BASO ABS # 0.01 K/uL (0-0.2); COMPLETE YES; EOS % 0.6 %; HEMATOCRIT 30.5 % (42-52); IG% 0.2 %; LYMPH % 3.5 %; LYMPH ABS # 0.41 K/uL (1.2-3.4); MEAN CELL VOLUME 88.4 fL (80-100); MEAN CORPUSCULAR HEMOGLOBIN 27.5 pg (25-34); MEAN CORPUSCULAR HGB CONC 31.1 g/dl (32-36); MONO % 1.4 %; NEUT % 94.2 %; PLATELET COUNT 131 K/uL (130-400); RED BLOOD COUNT 3.45 M/uL (4.7-6.1); WHITE BLOOD COUNT 11.79 K/uL (4.8-10.8)
[2017-02-03 07:04] LABS: BUN/CREATININE RATIO 20.5 (10-20); CALCIUM 9.1 mg/dl (8.5-10.1); CREATININE 0.94 mg/dl (0.60-1.40); MAGNESIUM 1.9 mg/dl (1.8-2.4)
[2017-02-03] MEDS ORDERED: CINACALCET 60 MG PO SCH (08:00)
[2017-02-03] MEDS: IPRATROPIUM BROMIDE/ALBUTEROL respimat INH INH SCH ×4 (08:38→20:35)
[2017-02-03] MEDS: DORZOLAMIDE/TIMOLOL 22.3/6.8MG/ML 10 ML BTL OPL SCH ×2 (08:39→20:36)
[2017-02-03] MEDS: CHECK FENTANYL PATCH PLACEMENT SCH ×3 (08:39→23:43)
[2017-02-03] MEDS: SERTRALINE HCL 50 MG TAB PO SCH (08:40)
[2017-02-03] MEDS: CYANOCOBALAMIN 500 MCG TAB (VIT B-12) PO SCH (08:42)
[2017-02-03] MEDS: CHOLECALCIFEROL 1000 INTER.UNIT TAB PO SCH (08:42)
[2017-02-03] MEDS: AMLODIPINE BESYLATE 5 MG TAB PO SCH (08:42)
[2017-02-03] MEDS: HYDROmorphone INJ 2 MG/ML SYR/VIAL IV PRN ×3 (08:53→15:56)
--- NOTE | 2017-02-03 14:40 | Progress Note ---
Subjective Date of Service: Feb 03, 2017. 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: Acute (7) 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 cancer Status: Acute (8) 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 cancer Status: Acute (9) Weakness Status: Acute Review of Systems Constitutional: No fever, No chills, No sweats, No weight loss Eyes: No worsening of vision, No eye pain, No redness, No discharge Respiratory: No cough, No sputum, No wheezing, No shortness of breath, No dyspnea on exertion Cardiac: No chest pain, No orthopnea, No PND, No edema, No claudication Abdomen: No pain, No nausea, No vomiting, No diarrhea, No constipation Musculoskeletal: + joint pain, No muscle pain, No swelling, No calf pain Male : No dysuria, No urinary frequency, No incontinence, No slowing stream Neurologic: No memory loss, No paralysis, No weakness, No numbness/tingling Psychiatric: No depression symptoms, No anhedonism, No anxiety, No insomnia Skin: No rash, No itch Objective Vital Signs Date Time Temp Pulse Resp B/P (MAP) Pulse Ox O2 Delivery O2 Flow Rate FiO2 02/03/17 11:23 37.2 74 18 115/66 (82) 92 Nasal Cannula 2.0 02/03/17 08:32 36.9 78 22 129/73 (91) 95 Nasal Cannula 2.0 02/03/17 08:30 96 Nasal Cannula 2.0 02/03/17 04:42 37.0 84 20 130/72 (91) 96 Nasal Cannula 2.0 02/03/17 00:32 37.2 84 20 123/69 (87) 97 Nasal Cannula 2.0 02/02/17 23:45 Nasal Cannula 2.0 02/02/17 20:54 37.0 96 18 164/73 (103) 97 Nasal Cannula 2.0 02/02/17 16:00 Nasal Cannula 2.0 02/02/17 16:00 36.8 103 20 177/90 (119) 96 Nasal Cannula 2.0 186/70 (108) 02/02/17 15:07 96 20 166/87 96 Nasal Cannula 2.0 02/02/17 14:53 89 22 114/70 97 Physical Exam General Appearance: WD/WN, + mild distress Neck: supple, no adenopathy, thyroid normal, no JVD Respiratory/Chest: chest non-tender, lungs clear, normal breath sounds, no respiratory distress Cardiovascular: regular rate, rhythm, no edema, no gallop, no JVD Abdomen: normal bowel sounds, non tender, soft, no organomegaly Extremities: normal range of motion, non-tender, normal inspection, no pedal edema Neurologic/Psychiatric: no motor/sensory deficits, alert, normal mood/affect, oriented x 3 Laboratory Results Last 24 Hours Test 02/03/17 05:36 White Blood Count 11.79 K/uL Red Blood Count 3.45 M/uL Hemoglobin 9.5 g/dL Hematocrit 30.5 % Mean Corpuscular Volume 88.4 fL Mean Corpuscular Hemoglobin 27.5 pg Mean Corpuscular Hemoglobin Concent 31.1 g/dl Platelet Count 131 K/uL Mean Platelet Volume 11.0 fL Neutrophils (%) (Auto) 94.2 % Lymphocytes (%) (Auto) 3.5 % Monocytes (%) (Auto) 1.4 % Eosinophils (%) (Auto) 0.6 % Basophils (%) (Auto) 0.1 % Neutrophils # (Auto) 11.11 K/uL Lymphocytes # (Auto) 0.41 K/uL Monocytes # (Auto) 0.17 K/uL Eosinophils # (Auto) 0.07 K/uL Basophils # (Auto) 0.01 K/uL RDW Standard Deviation 60.4 fL RDW Coefficient of Variation 19.0 % Immature Granulocyte % (Auto) 0.2 % Immature Granulocyte # (Auto) 0.02 K/uL Sodium Level 141 mmol/L Potassium Level 4.0 mmol/L Chloride Level 106 mmol/L Carbon Dioxide Level 28 mmol/L Anion Gap 7.0 mmol/L Blood Urea Nitrogen 19 mg/dl Creatinine 0.94 mg/dl Est Creatinine Clear Calc Drug Dose 76.9 ml/min Estimated GFR () 87.2 Estimated GFR (Non- 75.2 BUN/Creatinine Ratio 20.5 Random Glucose 87 mg/dl Calcium Level 9.1 mg/dl Magnesium Level 1.9 mg/dl Assessment and Plan L4 complex fracture/L2 and L3 lytic lesions/multilevel degenerative changes with prominent disc bulges L3- 4 and L4- 5- Likely related to metastatic disease Cont fentanyl patch 25 g changing every 3 days. Dilaudid 0.5-1 mg IV every 2 hours when necessary. 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 Continue Combivent 1 puff inhaled 4 times a day, no shortness of breath noted Hypertension--continue lisinopril 5 mg by mouth at bedtime and amlodipine 5 mg by mouth every morning. Hyperlipidemia--continue simvastatin 10 mg by mouth every afternoon. Depression--continue sertraline 50 mg by mouth daily. Glaucoma--continue Cosopt and Travatan Z Pancreatic cancer -consult Dr. Cage Continue Sensipar, vitamin B12 and folic acid.
--- NOTE | 2017-02-03 16:15 | Oncology Consultation ---
Oncology/Heme Consultation Date of Consultation: Feb 03, 2017. Attending Physician: Darin Evans M.D. Reason for Consultation: Lumbar spine pathologic fracture History of Present Illness Mr. Benitez is a 81-year-old gentleman with a history of metastatic pancreatic carcinoma. He presented to this hospital in November 2016 with sternal and mid back pain for about a month. CTs would reflect a 3.4 cm mass in the pancreatic tail along with changes consistent with hepatic metastasis as well as lytic changes in the sternum and L4 vertebral body. There was also extensive bilateral pulmonary emboli. CT-guided FNA of a sternal metastasis would reveal this to be metastatic adenocarcinoma consistent with a pancreatic primary. He has been treated with gemcitabine\Abraxane. He is admitted now after experiencing worsening back pain over the weekend. He states he got so severe on Wednesday that he was unable to move. 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: Acute (7) 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 cancer Status: Acute (8) 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 cancer Status: Acute (9) Weakness Status: Acute Family History Blood clots Cancer Diabetes mellitus Gallbladder disease Heart disease Hypertension Kidney disease Kidney stones Seizures Stroke Social History Smoking Status: Unknown if Ever Smoked Smokeless Tobacco Use: No Alcohol Use: none Drug Use: none Marital Status: Housing Status: lives with significant other Occupation Status: retired Allergies Coded Allergies: Aspirin (Verified Allergy, Intermediate, ITCHING, FLUSHING, 02/02/17) Penicillins (Verified Allergy, Mild, RASH, 02/02/17) Adhesives (Verified Allergy, Unknown, RASH, 02/02/17) Home Medications Scheduled Amlodipine Besylate (Norvasc), 5 MG PO QAM Cholecalciferol (Vitamin D3), 2,000 UNIT PO DAILY Cinacalcet (Sensipar), 30 MG PO QPM Cinacalcet (Sensipar), 60 MG PO QAM Cyanocobalamin (Vitamin B-12), 1,000 MCG PO QAM Dorzolamide Hcl-Timolol Maleat (Cosopt Oph), 1 DROPS OPL BID Enoxaparin Sodium (Enoxaparin Sodium), 150 MG SQ HS Folic Acid (Folic Acid), 1 MG PO QAM Ipratropium-Albuterol (Combivent Respimat), 1 PUFFS INH QID Lisinopril (Prinivil), 5 MG PO HS Sertraline (Zoloft), 50 MG PO DAILY Simvastatin (Zocor), 10 MG PO QPM Tamsulosin Hcl (Flomax), 0.4 MG PO DAILY Travoprost (Travatan Z), 1 DROP OPL HS Scheduled PRN Temazepam (Restoril), 15-30 MG PO HS PRN for Sleep Current Inpatient Medications Current Inpatient Medications Medications (Trade) Dose Ordered Sig/Jay Route Start Time Stop Time Status Last Admin Dose Admin Acetaminophen (Tylenol Tab) 650 mg Q4H PRN PO 02/02/17 14:15 03/04/17 14:14 Zolpidem Tartrate (Ambien Tab) 5 mg HSZ PRN PO 02/02/17 14:15 03/04/17 14:14 Amlodipine Besylate (Norvasc Tab) 5 mg QAM PO 02/03/17 08:00 03/05/17 08:59 02/03/17 08:42 5 MG Cyanocobalamin (Vitamin B-12 Tab) 1,000 mcg QAM PO 02/03/17 08:00 03/05/17 08:59 02/03/17 08:42 1,000 MCG Dorzolamide/ Timolol (Cosopt Op Soln) 1 drops BID OPL 02/02/17 20:00 03/04/17 20:59 02/03/17 08:39 1 DROPS Enoxaparin Sodium (Lovenox Inj) 150 mg DAILY@2000 SQ 02/02/17 20:00 03/04/17 19:59 02/02/17 21:36 150 MG Folic Acid (Folvite Tab) 1 mg QAM PO 02/03/17 08:00 03/05/17 08:59 02/03/17 08:40 1 MG Albuterol/ Ipratropium (Combivent Respimat Inh) 1 puffs QID INH 02/02/17 17:00 03/04/17 16:59 02/03/17 12:59 1 PUFFS Lisinopril (Zestril Tab) 5 mg HS PO 02/02/17 21:00 03/04/17 20:59 02/02/17 21:37 5 MG Sertraline HCl (Zoloft Tab) 50 mg DAILY PO 02/03/17 08:00 03/05/17 08:59 02/03/17 08:40 50 MG Simvastatin (Zocor Tab) 10 mg QPM PO 02/02/17 21:00 03/04/17 20:59 02/02/17 21:38 10 MG Tamsulosin HCl (Flomax Cap) 0.8 mg HS PO 02/02/17 21:00 03/04/17 20:59 02/02/17 21:38 0.8 MG Temazepam (Restoril Cap) 30 mg HS PRN PO 02/02/17 14:15 03/04/17 14:14 Travoprost (Travatan Z) 1 drops HS OPL 02/02/17 21:00 03/04/17 20:59 02/02/17 21:37 1 DROPS Miscellaneous Information (Order Awaiting Action) 1 ea QS N/A 02/02/17 16:00 03/04/17 15:59 Cholecalciferol (Vitamin D Tab) 5,000 inter.unit QAM PO 02/03/17 08:00 03/05/17 08:59 02/03/17 08:42 5,000 INTER.UNIT Ondansetron HCl (Zofran Inj) 4 mg Q6H PRN IV 02/02/17 14:30 03/04/17 14:29 Hydromorphone HCl (Dilaudid Inj) 1 mg Q2H PRN IV 02/02/17 14:30 02/16/17 14:29 Hydromorphone HCl (Dilaudid Inj) 2 mg Q2H PRN IV 02/02/17 14:30 02/16/17 14:29 02/03/17 15:56 2 MG Fentanyl (Duragesic Patch) 25 mcg Q3D@0900 TD 02/02/17 18:00 02/16/17 17:59 02/02/17 18:08 25 MCG Miscellaneous (Fentanyl Patch Remove & Waste) 1 ea Q3D@0859 N/A 02/05/17 08:59 03/07/17 08:58 Miscellaneous Information (Check Fentanyl Patch Placement) 1 ea QS N/A 02/03/17 00:00 03/05/17 00:00 02/03/17 16:07 1 EA Heparin Sodium (Porcine) (Heparin 100 Unit/ml 5ml Flush) 5 ml PRN PRN IV 02/02/17 23:15 03/04/17 23:14 02/03/17 13:22 5 ML Famotidine (Pepcid Tab) 20 mg BID PO 02/03/17 20:00 03/05/17 19:59 Review of Systems Constitutional: Negative for night sweats, or fever Eyes: Negative for event change of vision ENT: Negative for epistaxis, nasal discharge, sore throat, or deafness Cardiovascular: Negative for chest pain, palpitations, dizziness, diaphoresis Respiratory: Negative for new shortness of breath,hemoptysis, or purulent cough Gastrointestinal: Negative for diarrhea, hematemesis, melena, nausea, vomiting , or dyspepsia Integumentary (skin): Negative for rash or jaundice discoloration Genitourinary: Negative for urinary frequency, hematuria, or dysuria. He feels that he can control his urine although he says that hesitantly. Neurological: Negative for weakness, seizure activity, headache, or dizziness Lymphatic/Hematologic: Negative for petechiae, bleeding or new adenopathy Musculoskeletal: Worsening lower back pain Allergic/Immunologic: Negative for unusual rash or pruritis. Physical Exam Date Time Temp Pulse Resp B/P (MAP) Pulse Ox O2 Delivery O2 Flow Rate FiO2 02/03/17 15:20 36.6 80 24 121/66 (84) 92 Nasal Cannula 2.0 02/03/17 11:23 37.2 74 18 115/66 (82) 92 Nasal Cannula 2.0 02/03/17 08:32 36.9 78 22 129/73 (91) 95 Nasal Cannula 2.0 02/03/17 08:30 96 Nasal Cannula 2.0 02/03/17 04:42 37.0 84 20 130/72 (91) 96 Nasal Cannula 2.0 02/03/17 00:32 37.2 84 20 123/69 (87) 97 Nasal Cannula 2.0 02/02/17 23:45 Nasal Cannula 2.0 02/02/17 20:54 37.0 96 18 164/73 (103) 97 Nasal Cannula 2.0 Constitutional: vitals are stable. Eyes: Eyes are BRENDON EOMI without conjuctival erythema or icterus. ENT: External examination was negative for masses. Neck: Negative for masses or palpable thyromegaly Respiratory: Lung sounds were generally clear bilaterally Cardiovascular: Heart was RRR without significant murmur, gallops aoe rubs Gastrointestinal: No palpable hepatic or splenomegaly. The abdomen was soft with normal bowel sounds. Lymphatic system: there was no palpable peripheral lymphadenopathy Musculoskeletal System: The musculoskeletal system seemed concordant with age. Skin: The skin was negative for jaundice. Neurologic exam: The exam was negative for any focal findings. Deep tendon reflexes were equal and symmetrical. Psychiatric exam: Was essentially negative with normal mood and effect. Extremities: Negative for edema erythema Laboratory Results Last 24 Hours Test 02/03/17 05:36 White Blood Count 11.79 K/uL Red Blood Count 3.45 M/uL Hemoglobin 9.5 g/dL Hematocrit 30.5 % Mean Corpuscular Volume 88.4 fL Mean Corpuscular Hemoglobin 27.5 pg Mean Corpuscular Hemoglobin Concent 31.1 g/dl Platelet Count 131 K/uL Mean Platelet Volume 11.0 fL Neutrophils (%) (Auto) 94.2 % Lymphocytes (%) (Auto) 3.5 % Monocytes (%) (Auto) 1.4 % Eosinophils (%) (Auto) 0.6 % Basophils (%) (Auto) 0.1 % Neutrophils # (Auto) 11.11 K/uL Lymphocytes # (Auto) 0.41 K/uL Monocytes # (Auto) 0.17 K/uL Eosinophils # (Auto) 0.07 K/uL Basophils # (Auto) 0.01 K/uL RDW Standard Deviation 60.4 fL RDW Coefficient of Variation 19.0 % Immature Granulocyte % (Auto) 0.2 % Immature Granulocyte # (Auto) 0.02 K/uL Sodium Level 141 mmol/L Potassium Level 4.0 mmol/L Chloride Level 106 mmol/L Carbon Dioxide Level 28 mmol/L Anion Gap 7.0 mmol/L Blood Urea Nitrogen 19 mg/dl Creatinine 0.94 mg/dl Est Creatinine Clear Calc Drug Dose 76.9 ml/min Estimated GFR () 87.2 Estimated GFR (Non- 75.2 BUN/Creatinine Ratio 20.5 Random Glucose 87 mg/dl Calcium Level 9.1 mg/dl Magnesium Level 1.9 mg/dl Assessment & Plan CT scan and x-rays all reviewed. Patient has a pathologic fracture of the lumbar spine and radiation therapy should be consulted. I would also ask for palliative care consult and we will involve Dr. Child. His blood work is acceptable. He does have bilateral hydronephrosis secondary to outlet obstruction at the bladder level. His prostate is quite enlarged. I do not believe that this is some form of leptomeningeal disease that has led to this kind of obstruction. Approach in treatment should be supportive. Radiation therapy will be consulted.
--- NOTE | 2017-02-03 20:12 | Palliative Care Consultation ---
Consultation Date of Consultation: Feb 03, 2017. Requesting Physician: Dr Isaiah Ricci Attending Physician: Dr Darin Evans Reason for Consultation: Pain management History of Present Illness Pt is an 81 yo male with Metastatic Pancreatic cancer who was scheduled to see me as an outpt on 02/12 for pain management. Pt presented to the ER yesterday with severe back pain and was not able to move or ambulate.. Pt was found to have a L4 fracture and lucent lesions in L2 and L3. He is admitted for uncontrolled pain. Pt history is limited due to increased confusion - likely due to IV Dilaudid . Pt was able to report that he was taking oxycodone at home - dose was increased from 5 mg to 10 mg - but he did not h receive any relief. Pt had been on Tylenol #3 prior to starting oxy. Pt was started on a 25 mcg Fentanyl patch on admission yesterday - he has required 3 prn doses of IV Dilaudid since 9 am yesterday. Pt reports pain is constant, very sharp/grabbing in nature, is exacerbated by any movement and only partial relief with rest and IV Dilaudid. Pt reports that the severe pain started on 01/13/28 and on the morning of 02/02 he was unable to even place his foot on the floor due to pain. Pt reported that his pain was a 9/10 during exam, but pt was able to move UE and his LE some without grimace, he was conversational and did not exhibit pain behaviors. . Pt did not try to sit up due to anticipated severe pain. Past Medical/Surgical History Medical History: Metastatic Pancreatic Ca, spinal stenosis, L 4 fx with lucent lesions in L2 and L3, HTN, DM, h/o DVT with PE this past November Surgical History: Mediport, eye surgery , appendectomy, tonsillectomy, biopsy, hernia repair X 3. Family History Positive for cancer, DM, heart disease, HTN, CVA and seizures Social History Smoking Status: Former Smoker (3 ppd X 20 years - quit 1987) History of Alcohol Use: No Drug Use: none Marital Status: Housing Status: lives with family Occupation Status: retired Review of Systems Constitutional: No fever, No chills, No sweats Eyes: No worsening of vision ENT: No hearing loss Respiratory: No cough, No shortness of breath Cardiac: No chest pain, No edema Abdomen: + constipation (controlled with Miralax at home), No pain, No nausea Male : No dysuria Neurologic: + problem reported (confusion, rambling speech - likely due to IV Dilaudid) Psychiatric: + insomnia (on Remeron at home) Heme: + clotting problems (h/o DVT/PE) Allergies Coded Allergies: Aspirin (Verified Allergy, Intermediate, ITCHING, FLUSHING, 02/02/17) Penicillins (Verified Allergy, Mild, RASH, 02/02/17) Adhesives (Verified Allergy, Unknown, RASH, 02/02/17) Medications Current Inpatient Medications Medications (Trade) Dose Ordered Sig/Jay Route Start Time Stop Time Status Last Admin Dose Admin Acetaminophen (Tylenol Tab) 650 mg Q4H PRN PO 02/02/17 14:15 03/04/17 14:14 Zolpidem Tartrate (Ambien Tab) 5 mg HSZ PRN PO 02/02/17 14:15 03/04/17 14:14 Amlodipine Besylate (Norvasc Tab) 5 mg QAM PO 02/03/17 08:00 03/05/17 08:59 02/03/17 08:42 5 MG Cyanocobalamin (Vitamin B-12 Tab) 1,000 mcg QAM PO 02/03/17 08:00 03/05/17 08:59 02/03/17 08:42 1,000 MCG Dorzolamide/ Timolol (Cosopt Op Soln) 1 drops BID OPL 02/02/17 20:00 03/04/17 20:59 02/03/17 08:39 1 DROPS Enoxaparin Sodium (Lovenox Inj) 150 mg DAILY@2000 SQ 02/02/17 20:00 03/04/17 19:59 02/02/17 21:36 150 MG Folic Acid (Folvite Tab) 1 mg QAM PO 02/03/17 08:00 03/05/17 08:59 02/03/17 08:40 1 MG Albuterol/ Ipratropium (Combivent Respimat Inh) 1 puffs QID INH 02/02/17 17:00 03/04/17 16:59 02/03/17 16:57 1 PUFFS Lisinopril (Zestril Tab) 5 mg HS PO 02/02/17 21:00 03/04/17 20:59 02/02/17 21:37 5 MG Sertraline HCl (Zoloft Tab) 50 mg DAILY PO 02/03/17 08:00 03/05/17 08:59 02/03/17 08:40 50 MG Simvastatin (Zocor Tab) 10 mg QPM PO 02/02/17 21:00 03/04/17 20:59 02/02/17 21:38 10 MG Tamsulosin HCl (Flomax Cap) 0.8 mg HS PO 02/02/17 21:00 03/04/17 20:59 02/02/17 21:38 0.8 MG Temazepam (Restoril Cap) 30 mg HS PRN PO 02/02/17 14:15 03/04/17 14:14 Travoprost (Travatan Z) 1 drops HS OPL 02/02/17 21:00 03/04/17 20:59 02/02/17 21:37 1 DROPS Miscellaneous Information (Order Awaiting Action) 1 ea QS N/A 02/02/17 16:00 03/04/17 15:59 Cholecalciferol (Vitamin D Tab) 5,000 inter.unit QAM PO 02/03/17 08:00 03/05/17 08:59 02/03/17 08:42 5,000 INTER.UNIT Ondansetron HCl (Zofran Inj) 4 mg Q6H PRN IV 02/02/17 14:30 03/04/17 14:29 Hydromorphone HCl (Dilaudid Inj) 1 mg Q2H PRN IV 02/02/17 14:30 02/16/17 14:29 Hydromorphone HCl (Dilaudid Inj) 2 mg Q2H PRN IV 02/02/17 14:30 02/16/17 14:29 02/03/17 15:56 2 MG Fentanyl (Duragesic Patch) 25 mcg Q3D@0900 TD 02/02/17 18:00 02/16/17 17:59 02/02/17 18:08 25 MCG Miscellaneous (Fentanyl Patch Remove & Waste) 1 ea Q3D@0859 N/A 02/05/17 08:59 03/07/17 08:58 Miscellaneous Information (Check Fentanyl Patch Placement) 1 ea QS N/A 02/03/17 00:00 03/05/17 00:00 02/03/17 16:07 1 EA Heparin Sodium (Porcine) (Heparin 100 Unit/ml 5ml Flush) 5 ml PRN PRN IV 02/02/17 23:15 03/04/17 23:14 02/03/17 13:22 5 ML Famotidine (Pepcid Tab) 20 mg BID PO 02/03/17 20:00 03/05/17 19:59 Physical Exam Date Time Temp Pulse Resp B/P (MAP) Pulse Ox O2 Delivery O2 Flow Rate FiO2 02/03/17 16:00 92 Nasal Cannula 2.0 02/03/17 15:20 36.6 80 24 121/66 (84) 92 Nasal Cannula 2.0 02/03/17 11:23 37.2 74 18 115/66 (82) 92 Nasal Cannula 2.0 02/03/17 08:32 36.9 78 22 129/73 (91) 95 Nasal Cannula 2.0 02/03/17 08:30 96 Nasal Cannula 2.0 02/03/17 04:42 37.0 84 20 130/72 (91) 96 Nasal Cannula 2.0 02/03/17 00:32 37.2 84 20 123/69 (87) 97 Nasal Cannula 2.0 02/02/17 23:45 Nasal Cannula 2.0 02/02/17 20:54 37.0 96 18 164/73 (103) 97 Nasal Cannula 2.0 General Appearance: no apparent distress 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, clouded cornea) ENT: hearing grossly normal Neck: supple Respiratory: + pertinent finding (decreased BS both bases) Cardiovascular: regular rate, rhythm, + systolic murmur Abdomen: normal bowel sounds, non tender, soft Musculoskeletal: pertinent finding (decreased ROM LE) Neurologic/Psychiatric: + pertinent finding (confused, decreased strength LE) Skin: warm/dry, no rash Laboratory Results Last 24 Hours Test 02/03/17 05:36 White Blood Count 11.79 K/uL Red Blood Count 3.45 M/uL Hemoglobin 9.5 g/dL Hematocrit 30.5 % Mean Corpuscular Volume 88.4 fL Mean Corpuscular Hemoglobin 27.5 pg Mean Corpuscular Hemoglobin Concent 31.1 g/dl Platelet Count 131 K/uL Mean Platelet Volume 11.0 fL Neutrophils (%) (Auto) 94.2 % Lymphocytes (%) (Auto) 3.5 % Monocytes (%) (Auto) 1.4 % Eosinophils (%) (Auto) 0.6 % Basophils (%) (Auto) 0.1 % Neutrophils # (Auto) 11.11 K/uL Lymphocytes # (Auto) 0.41 K/uL Monocytes # (Auto) 0.17 K/uL Eosinophils # (Auto) 0.07 K/uL Basophils # (Auto) 0.01 K/uL RDW Standard Deviation 60.4 fL RDW Coefficient of Variation 19.0 % Immature Granulocyte % (Auto) 0.2 % Immature Granulocyte # (Auto) 0.02 K/uL Sodium Level 141 mmol/L Potassium Level 4.0 mmol/L Chloride Level 106 mmol/L Carbon Dioxide Level 28 mmol/L Anion Gap 7.0 mmol/L Blood Urea Nitrogen 19 mg/dl Creatinine 0.94 mg/dl Est Creatinine Clear Calc Drug Dose 76.9 ml/min Estimated GFR () 87.2 Estimated GFR (Non- 75.2 BUN/Creatinine Ratio 20.5 Random Glucose 87 mg/dl Calcium Level 9.1 mg/dl Magnesium Level 1.9 mg/dl Assessment & Plan Palliative Performance Scale: 30 % (1) Lower back pain Status: Acute Assessment & Plan: New L4 fx - ? if candidate for kyphoplasty (2) Weakness Status: Acute Assessment & Plan: ? due to pain vs spinal stenosis (3) Fracture of lumbar spine Status: Acute Assessment & Plan: pain control - pt receiving 2 mg Dilaudid IV - ? if less confused with 1 mg IV - pt reports high pain level but appears more comfortable than reported level of 9/10. Pt reports no relief with oxy - depending on inpatient pain med requirements and effectiveness of Fentanyl patch, may be able to control BTP with PO Dilaudid ? candidate for kyphoplasty for L4 fx. (4) 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 cancer Status: Acute Assessment & Plan: Rad Onc to see regarding lesions in L spine (5) Spinal stenosis Status: Chronic Assessment & Plan: Weakness may be related vs acute pain causing increased weakness (6) Benign hypertension Status: Chronic Assessment & Plan: controlled on home dose of Amlodipine (7) Diabetes mellitus Status: Chronic Assessment & Plan: Diet controlled - no meds noted at home Total time 55 min with > 50% of time spent at bedside discussing treatment options with pt
[2017-02-03] MEDS: TRAVOPROST Z 0.004% OPH SOLN 2.5 ML BTL OPL SCH (20:36)
[2017-02-03] MEDS: FAMOTIDINE 20 MG TAB PO SCH (20:36)
[2017-02-03] MEDS: TAMSULOSIN HCL 0.4 MG CAP PO SCH (20:37)
[2017-02-03] MEDS: ENOXAPARIN 150 MG/1ML SYR SQ SCH (20:37)
[2017-02-03] MEDS: LISINOPRIL 5 MG TAB PO SCH (20:37)
[2017-02-03] MEDS: SIMVASTATIN 10 MG TAB PO SCH (20:37)
[2017-02-04 04:42] VITALS: BP 122/62; PULSE 81; TEMP 36.8; O2SAT 94
[2017-02-04 05:53] LABS: COMPLETE YES; EOS % 1.1 %; HEMATOCRIT 31.4 % (42-52); IG% 0.2 %; LYMPH % 6.5 %; LYMPH ABS # 0.63 K/uL (1.2-3.4); MEAN CELL VOLUME 87.7 fL (80-100); MEAN CORPUSCULAR HEMOGLOBIN 27.7 pg (25-34); MEAN CORPUSCULAR HGB CONC 31.5 g/dl (32-36); MEAN PLATELET VOLUME 11.4 fL (7.4-10.4); MONO % 0.8 %; NEUT % 91.4 %; PLATELET COUNT 161 K/uL (130-400); RED BLOOD COUNT 3.58 M/uL (4.7-6.1); WHITE BLOOD COUNT 9.65 K/uL (4.8-10.8)
[2017-02-04 06:22] VITALS: BMI 31.4
[2017-02-04 06:34] LABS: BUN/CREATININE RATIO 24.8 (10-20); CALCIUM 9.7 mg/dl (8.5-10.1); POTASSIUM 4.3 mmol/L (3.5-5.1)
[2017-02-04] MEDS: IPRATROPIUM BROMIDE/ALBUTEROL respimat INH INH SCH ×4 (07:43→19:53)
[2017-02-04] MEDS: CHOLECALCIFEROL 1000 INTER.UNIT TAB PO SCH (07:43)
[2017-02-04] MEDS: DORZOLAMIDE/TIMOLOL 22.3/6.8MG/ML 10 ML BTL OPL SCH ×2 (07:43→19:53)
[2017-02-04] MEDS: SERTRALINE HCL 50 MG TAB PO SCH (07:43)
[2017-02-04] MEDS: AMLODIPINE BESYLATE 5 MG TAB PO SCH (07:43)
[2017-02-04] MEDS: FAMOTIDINE 20 MG TAB PO SCH ×2 (07:43→19:55)
[2017-02-04] MEDS: CYANOCOBALAMIN 500 MCG TAB (VIT B-12) PO SCH (07:43)
[2017-02-04] MEDS: CHECK FENTANYL PATCH PLACEMENT SCH ×3 (07:44→23:44)
[2017-02-04 07:59] VITALS: BP 153/72; PULSE 89; TEMP 36.8; O2SAT 94
[2017-02-04] MEDS: ACETAMINOPHEN 325 MG TAB PO PRN (08:40)
[2017-02-04] MEDS: HYDROmorphone INJ 2 MG/ML SYR/VIAL IV PRN ×2 (09:36→14:43)
--- NOTE | 2017-02-04 10:13 | Radiation Oncology Consult ---
Radiation Oncology Consult Date / Reason Feb 04, 2017. Physicians Medical Oncologist: Dr. Ricci Radiation Oncologist: Dr. Giovany Ortega Diagnosis (1) Pancreatic cancer Permanent Comment: Metastatic pancreatic cancer to liver and bone Last Edited By: Giovany Ortega on Feb 04, 2017 09:03 History of Present Illness I am seeing Mr. Benitez in consultation at the request of Dr. Isaiah Ricci. The patient was seen at bedside and his was present for the entire conversation. ECOG PS: 3 - 4 Mr. Benitez is a 81-year-old gentleman who presents with metastatic pancreatic cancer. The patient was initially diagnosed in November 2016 and was found to have a mass in the pancreatic tail as well as multiple hepatic masses and lytic lesions in the sternum and vertebral body. The patient underwent a biopsy in November 2016 which confirmed metastatic pancreatic cancer. The patient has received gemcitabine and Abraxane chemotherapy underneath the supervision of Dr. Robert Cage. He recently received a cycle of chemotherapy. Unfortunate , the patient has developed significant lower back pain. He did present to the emergency room for pain management and control. The patient was admitted to the hospital for pain management. The patient had a CT of the lumbar spine on 02/02/2017 which revealed: "IMPRESSION: 1. Complex fracture of the L4 vertebral body, suspected pathologic fracture with underlying neoplastic involvement. Additional lytic lesion in the L3 vertebral body and possibly L2. These are highly suspicious for metastatic disease. 2. Multilevel degenerative changes including prominent disc bulges at L3-4 and L4-5 with spinal stenosis greatest at L3-4. The severity better demonstrated on MR. 3. Bilateral hydroureteronephrosis, new from prior." The patient was seen in consultation by Dr. Ricci for medical oncology who recommended consideration of palliative external beam radiation therapy to the lumbar spine. We are now seeing the patient in consultation discuss role palliative radiation therapy. Currently, the patient has significant pain in his lower back. His states that his mind is not very clear since he is been placed on pain medications. Past History Past Medical/Surgical History: Diabetes Type 2, Anxiety, Pulmonary Emboli, Cancer Social History Smoking Status: Former Smoker (3 ppd X 20 years - quit 1987) Hx Tobacco Use In Past Year?: No (QUIT IN 1987, UNKNOWN # YEARS PER SPOUSE) Do You Dip or Chew Tobacco: No Hx Alcohol Use: No Hx Substance Use : No Allergies Coded Allergies: Aspirin (Verified Allergy, Intermediate, ITCHING, FLUSHING, 02/02/17) Penicillins (Verified Allergy, Mild, RASH, 02/02/17) Adhesives (Verified Allergy, Unknown, RASH, 02/02/17) Home Medications Scheduled Amlodipine Besylate (Norvasc), 5 MG PO QAM Cholecalciferol (Vitamin D3), 2,000 UNIT PO DAILY Cinacalcet (Sensipar), 30 MG PO QPM Cinacalcet (Sensipar), 60 MG PO QAM Cyanocobalamin (Vitamin B-12), 1,000 MCG PO QAM Dorzolamide Hcl-Timolol Maleat (Cosopt Oph), 1 DROPS OPL BID Enoxaparin Sodium (Enoxaparin Sodium), 150 MG SQ HS Folic Acid (Folic Acid), 1 MG PO QAM Ipratropium-Albuterol (Combivent Respimat), 1 PUFFS INH QID Lisinopril (Prinivil), 5 MG PO HS Sertraline (Zoloft), 50 MG PO DAILY Simvastatin (Zocor), 10 MG PO QPM Tamsulosin Hcl (Flomax), 0.4 MG PO DAILY Travoprost (Travatan Z), 1 DROP OPL HS Scheduled PRN Temazepam (Restoril), 15-30 MG PO HS PRN for Sleep Review of Systems Ear/Hearing: Ear Side: Bilateral Hearing Ability: Normal Hearing Aid: None Edema: Present?: No Pain Management Side: Bilateral Patient Preferred Pain Scale: 0 - 10 Initial Pain Intensity: 8.0 Physical Exam Height: 6 (Feet) 0.00 (Inches) 182.9 (Centimeters) 1.8288 (Meters) Weight: 231 (Pounds) 7.7 (Ounces) 105.000 (Kilograms) 927798.000 (Grams) Date Time Temp Pulse Resp B/P (MAP) Pulse Ox O2 Delivery O2 Flow Rate FiO2 02/04/17 08:00 Nasal Cannula 2.0 02/04/17 07:59 36.8 89 20 153/72 (99) 94 Nasal Cannula 2.0 02/04/17 04:42 36.8 81 20 122/62 (82) 94 Nasal Cannula 2.0 02/03/17 23:35 Nasal Cannula 2.0 02/03/17 23:17 36.7 89 20 111/50 (70) 94 Nasal Cannula 2.0 02/03/17 19:50 36.8 87 16 115/63 (80) 93 Nasal Cannula 2.0 02/03/17 16:00 92 Nasal Cannula 2.0 02/03/17 15:20 36.6 80 24 121/66 (84) 92 Nasal Cannula 2.0 02/03/17 11:23 37.2 74 18 115/66 (82) 92 Nasal Cannula 2.0 General Appearance: + mild distress Head: normocephalic, atraumatic Eyes: normal inspection ENT: normal ENT inspection Neck: supple, no adenopathy Respiratory/Chest: chest non-tender, lungs clear, normal breath sounds, no respiratory distress Cardiovascular: regular rate, rhythm, no edema, no gallop, no JVD Abdomen/GI: normal bowel sounds Back: + paravertebral tenderness Extremities: normal inspection Neurologic/Psych: cardiac exercise physiologist II-XII nml as tested, no motor/sensory deficits, alert, + disoriented Skin: normal color, warm/dry, no rash Laboratory Labortaory Results: were reviewed Pathology Pathology results: were reviewed Imaging Imaging studies: were reviewed Assessment & Recommendations Mr. Benitez is a 81-year-old gentleman with metastatic pancreatic cancer to the lumbar spine. The patient has been treated with chemotherapy underneath the supervision of Dr. Robert Cage from medical oncology in the outpatient setting. The patient was admitted to the hospital due to significant issues with pain management due to his metastatic disease in the lumbar spine. We are seeing the patient in consultation to discuss role of palliative external beam radiation therapy in the inpatient setting. After reviewing the imaging studies and the patient's clinical symptoms, I recommended palliative external beam radiation therapy to the lumbar spine. The patient will be brought down today for CT examination for treatment planning. We did explain the indications, alternatives, benefits, risks and side effects of external beam radiation therapy to the did pelvis. We did explain the most common side effects including, but not limited to, skin erythema, skin breakdown , hyperpigmentation, telangiectasia, wound complications, perianal fistula development, fistula formation, vaginal dryness, vaginal stenosis, dyspareunia, dysuria, increased urinary frequency, urgency, diarrhea, constipation, melena, hematochezia, hematuria, radiation cystitis, radiation proctitis, fatigue, decreased blood counts, wound complications from surgery, rectal incontinence, secondary malignancy development. We did explain the procedures and daily process of radiation therapy. The patient is disoriented so we will obtain consent from his who serves as healthcare proxy. The patient and family had multiple questions which were answered to their full satisfaction. Thank you for allowing us to participate in the care of this patient. This chart was completed in part utilizing [employer] Speech Voice Recognition software. Attempts were made to minimize the grammatical errors, random word insertions, pronoun errors and incomplete sentences. Any formal questions or concerns about the content, text or information contained within the body of this dictation should be directly addressed to the provider for clarification. Giovany Ortega MD Department of Radiation Oncology [facility] Total Time In Consultation I spent 30 minutes examining and counseling the patient. I spent 15 minutes completing this note. TRANSITION ASSISTANT Copy To Isaiah Ricci D.O.; Robert Cage MD
--- NOTE | 2017-02-04 11:15 | Progress Note ---
Subjective Date of Service: Feb 04, 2017. 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: Acute (7) 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 cancer Status: Acute (8) 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 cancer Status: Acute (9) Weakness Status: Acute Review of Systems Unable to obtain due to confusion Objective Vital Signs Date Time Temp Pulse Resp B/P (MAP) Pulse Ox O2 Delivery O2 Flow Rate FiO2 02/04/17 08:00 Nasal Cannula 2.0 02/04/17 07:59 36.8 89 20 153/72 (99) 94 Nasal Cannula 2.0 02/04/17 04:42 36.8 81 20 122/62 (82) 94 Nasal Cannula 2.0 02/03/17 23:35 Nasal Cannula 2.0 02/03/17 23:17 36.7 89 20 111/50 (70) 94 Nasal Cannula 2.0 02/03/17 19:50 36.8 87 16 115/63 (80) 93 Nasal Cannula 2.0 02/03/17 16:00 92 Nasal Cannula 2.0 02/03/17 15:20 36.6 80 24 121/66 (84) 92 Nasal Cannula 2.0 02/03/17 11:23 37.2 74 18 115/66 (82) 92 Nasal Cannula 2.0 Physical Exam General Appearance: WD/WN, + mild distress Eyes: normal inspection, PERRL, EOMI, sclerae normal Neck: supple, no adenopathy, thyroid normal, no JVD Respiratory/Chest: chest non-tender, lungs clear, normal breath sounds, no respiratory distress Cardiovascular: no edema, no gallop, no JVD, no murmur Abdomen: normal bowel sounds, non tender, soft, no organomegaly Extremities: non-tender, normal inspection, no pedal edema Neurologic/Psychiatric: no motor/sensory deficits, alert, normal mood/affect, + disoriented Laboratory Results Last 24 Hours Test 02/04/17 05:33 8/31/17 05:39 White Blood Count 9.65 K/uL Red Blood Count 3.58 M/uL Hemoglobin 9.9 g/dL Hematocrit 31.4 % Mean Corpuscular Volume 87.7 fL Mean Corpuscular Hemoglobin 27.7 pg Mean Corpuscular Hemoglobin Concent 31.5 g/dl Platelet Count 161 K/uL Mean Platelet Volume 11.4 fL Neutrophils (%) (Auto) 91.4 % Lymphocytes (%) (Auto) 6.5 % Monocytes (%) (Auto) 0.8 % Eosinophils (%) (Auto) 1.1 % Basophils (%) (Auto) 0.0 % Neutrophils # (Auto) 8.81 K/uL Lymphocytes # (Auto) 0.63 K/uL Monocytes # (Auto) 0.08 K/uL Eosinophils # (Auto) 0.11 K/uL Basophils # (Auto) 0.00 K/uL RDW Standard Deviation 59.2 fL RDW Coefficient of Variation 18.6 % Immature Granulocyte % (Auto) 0.2 % Immature Granulocyte # (Auto) 0.02 K/uL Sodium Level 142 mmol/L Potassium Level 4.3 mmol/L Chloride Level 107 mmol/L Carbon Dioxide Level 30 mmol/L Anion Gap 5.0 mmol/L Blood Urea Nitrogen 25 mg/dl Creatinine 1.00 mg/dl Est Creatinine Clear Calc Drug Dose 71.3 ml/min Estimated GFR () 80.9 Estimated GFR (Non- 69.8 BUN/Creatinine Ratio 24.8 Random Glucose 147 mg/dl Calcium Level 9.7 mg/dl Magnesium Level 2.0 mg/dl Bedside Glucose 146 mg/dl Assessment and Plan L4 complex fracture/L2 and L3 lytic lesions/multilevel degenerative changes with prominent disc bulges L3- 4 and L4- 5- Likely related to metastatic disease from pancreatic cancer Radiation oncology consulted, await recs at this time Cont fentanyl patch 25 g changing every 3 days, palliative care consulted as well Dilaudid 0.5-1 mg IV every 2 hours when necessary. Continue Sensipar, vitamin B12 and folic acid Poor prognosis Bilateral hydroureteronephrosis secondary to Bladder outlet obstruction-- Cont tamsulosin from 0.[address] a Loving catheter, appropriate output Pulmonary embolism--continue enoxaparin 150 mg subcutaneous at bedtime. Continue Combivent 1 puff inhaled 4 times a day, no shortness of breath noted Hypertension--continue lisinopril 5 mg by mouth at bedtime and amlodipine 5 mg by mouth every morning. Hyperlipidemia--continue simvastatin 10 mg by mouth every afternoon. Depression--continue sertraline 50 mg by mouth daily. Glaucoma--continue Cosopt and Travatan Z
--- NOTE | 2017-02-04 14:32 | Hematology/Oncology Prog Note ---
Hematology/Onc Progress Note Date of Service Feb 04, 2017. Diagnoses Metastatic pancreatic carcinoma. Back Pain with new lumbar vertebrae compression fracture Medications Medications Administered Medications (Trade) Dose Ordered Sig/Jay Route Start Time Stop Time Status Last Admin Dose Admin Sodium Chloride 500 ml @ 999 mls/hr Q31M STAT IV 02/02/17 12:05 02/02/17 12:35 DC 02/02/17 12:45 999 MLS/HR Ondansetron HCl (Zofran Inj) 4 mg NOW STAT IV 02/02/17 12:05 02/02/17 12:10 DC 02/02/17 12:45 4 MG Sodium Chloride 1,000 ml @ 200 mls/hr Q5H STAT IV 02/02/17 12:05 02/02/17 15:54 DC 02/02/17 12:45 200 MLS/HR Hydromorphone HCl (Dilaudid Inj) 1 mg NOW STAT IV 02/02/17 12:05 02/02/17 12:10 DC 02/02/17 12:45 1 MG Acetaminophen (Tylenol Tab) 650 mg Q4H PRN PO 02/02/17 14:15 03/04/17 14:14 02/04/17 08:40 650 MG Amlodipine Besylate (Norvasc Tab) 5 mg QAM PO 02/03/17 08:00 03/05/17 08:59 02/04/17 07:43 5 MG Cyanocobalamin (Vitamin B-12 Tab) 1,000 mcg QAM PO 02/03/17 08:00 03/05/17 08:59 02/04/17 07:43 1,000 MCG Dorzolamide/ Timolol (Cosopt Op Soln) 1 drops BID OPL 02/02/17 20:00 03/04/17 20:59 02/04/17 07:43 1 DROPS Enoxaparin Sodium (Lovenox Inj) 150 mg DAILY@2000 SQ 02/02/17 20:00 03/04/17 19:59 02/03/17 20:37 150 MG Folic Acid (Folvite Tab) 1 mg QAM PO 02/03/17 08:00 03/05/17 08:59 02/04/17 07:42 1 MG Albuterol/ Ipratropium (Combivent Respimat Inh) 1 puffs QID INH 02/02/17 17:00 03/04/17 16:59 02/04/17 11:20 1 PUFFS Lisinopril (Zestril Tab) 5 mg HS PO 02/02/17 21:00 03/04/17 20:59 02/03/17 20:37 5 MG Sertraline HCl (Zoloft Tab) 50 mg DAILY PO 02/03/17 08:00 03/05/17 08:59 02/04/17 07:43 50 MG Simvastatin (Zocor Tab) 10 mg QPM PO 02/02/17 21:00 03/04/17 20:59 02/03/17 20:37 10 MG Tamsulosin HCl (Flomax Cap) 0.8 mg HS PO 02/02/17 21:00 03/04/17 20:59 02/03/17 20:37 0.8 MG Travoprost (Travatan Z) 1 drops HS OPL 02/02/17 21:00 03/04/17 20:59 02/03/17 20:36 1 DROPS Cholecalciferol (Vitamin D Tab) 5,000 inter.unit QAM PO 02/03/17 08:00 03/05/17 08:59 02/04/17 07:43 5,000 INTER.UNIT Ondansetron HCl (Zofran Inj) 4 mg Q6H PRN IV 02/02/17 14:30 03/04/17 14:29 02/04/17 13:13 4 MG Hydromorphone HCl (Dilaudid Inj) 2 mg Q2H PRN IV 02/02/17 14:30 02/16/17 14:29 02/04/17 09:36 2 MG Famotidine 20 mg/ Dextrose 102 ml @ 200 mls/hr Q12H IV 02/02/17 18:00 02/03/17 14:46 DC 02/03/17 05:43 200 MLS/HR Fentanyl (Duragesic Patch) 25 mcg Q3D@0900 TD 02/02/17 18:00 02/16/17 17:59 02/02/17 18:08 25 MCG Hydromorphone HCl (Dilaudid Inj) 0.5 mg STK-MED ONCE .ROUTE 02/02/17 15:05 02/02/17 15:06 DC 02/02/17 15:07 0.5 MG Miscellaneous Information (Check Fentanyl Patch Placement) 1 ea QS N/A 02/03/17 00:00 03/05/17 00:00 02/04/17 07:44 1 EA Heparin Sodium (Porcine) (Heparin 100 Unit/ml 5ml Flush) 5 ml STK-MED ONCE .ROUTE 02/02/17 22:39 02/02/17 22:40 DC 02/02/17 22:42 5 ML Heparin Sodium (Porcine) (Heparin 100 Unit/ml 5ml Flush) 5 ml PRN PRN IV 02/02/17 23:15 03/04/17 23:14 02/04/17 13:15 5 ML Famotidine (Pepcid Tab) 20 mg BID PO 02/03/17 20:00 03/05/17 19:59 02/04/17 07:43 20 MG Subjective His Winifred was at his bedside. He is to be an issue. Is difficult for him to eat. Clearly he will need help at home for his care. It is doubtful that he will be able to return home at this time. Radiation therapy has seen him. Review of Systems: Constitutional: Negative for night sweats, or fever Eyes: Negative for event change of vision ENT: Negative for epistaxis, nasal discharge, sore throat, or deafness Cardiovascular: Negative for chest pain, palpitations, dizziness, diaphoresis Respiratory: Negative for new shortness of breath,hemoptysis, or purulent cough Gastrointestinal: Negative for diarrhea, hematemesis, melena, nausea, vomiting , or dyspepsia Integumentary (skin): Negative for rash or jaundice discoloration Lymphatic/Hematologic: Negative for petechiae, bleeding or new adenopathy Allergic/Immunologic: Negative for unusual rash or pruritis. Vital Signs Vital Signs Past 12 Hours Date Time Temp Pulse Resp B/P (MAP) Pulse Ox O2 Delivery O2 Flow Rate FiO2 02/04/17 08:00 Nasal Cannula 2.0 02/04/17 07:59 36.8 89 20 153/72 (99) 94 Nasal Cannula 2.0 02/04/17 04:42 36.8 81 20 122/62 (82) 94 Nasal Cannula 2.0 Physical Exam Constitutional: vitals are stable. Somewhat confused. Eyes: Eyes are BRENDON EOMI without conjuctival erythema or icterus. ENT: External examination was negative for masses. Neck: Negative for masses or palpable thyromegaly Respiratory: Lung sounds were generally clear bilaterally Cardiovascular: Heart was RRR without significant murmur, gallops aoe rubs Gastrointestinal: No palpable hepatic or splenomegaly. The abdomen was soft with normal bowel sounds. Lymphatic system: there was no palpable peripheral lymphadenopathy Musculoskeletal System: The musculoskeletal system seemed concordant with age. Skin: The skin was negative for jaundice. Psychiatric exam: Was essentially negative with normal mood and effect. Cannot be assessed reliably. Extremities: Negative for edema erythema Laboratory Last 24 Hours Test 02/04/17 05:33 02/04/17 05:39 White Blood Count 9.65 K/uL Red Blood Count 3.58 M/uL Hemoglobin 9.9 g/dL Hematocrit 31.4 % Mean Corpuscular Volume 87.7 fL Mean Corpuscular Hemoglobin 27.7 pg Mean Corpuscular Hemoglobin Concent 31.5 g/dl Platelet Count 161 K/uL Mean Platelet Volume 11.4 fL Neutrophils (%) (Auto) 91.4 % Lymphocytes (%) (Auto) 6.5 % Monocytes (%) (Auto) 0.8 % Eosinophils (%) (Auto) 1.1 % Basophils (%) (Auto) 0.0 % Neutrophils # (Auto) 8.81 K/uL Lymphocytes # (Auto) 0.63 K/uL Monocytes # (Auto) 0.08 K/uL Eosinophils # (Auto) 0.11 K/uL Basophils # (Auto) 0.00 K/uL RDW Standard Deviation 59.2 fL RDW Coefficient of Variation 18.6 % Immature Granulocyte % (Auto) 0.2 % Immature Granulocyte # (Auto) 0.02 K/uL Sodium Level 142 mmol/L Potassium Level 4.3 mmol/L Chloride Level 107 mmol/L Carbon Dioxide Level 30 mmol/L Anion Gap 5.0 mmol/L Blood Urea Nitrogen 25 mg/dl Creatinine 1.00 mg/dl Est Creatinine Clear Calc Drug Dose 71.3 ml/min Estimated GFR () 80.9 Estimated GFR (Non- 69.8 BUN/Creatinine Ratio 24.8 Random Glucose 147 mg/dl Calcium Level 9.7 mg/dl Magnesium Level 2.0 mg/dl Bedside Glucose 146 mg/dl Assessment & Plan He has seen radiation therapy and is about to begin today. This was reviewed with radiation therapy post rounds. Pain continues to be an issue and appreciate everybody's input an supportive care continues. I did also review his problem with the certified credit counselor who will discuss potential follow-up options and discharge options with his who is currently in the room.
[2017-02-04 14:57] VITALS: BP 155/69; PULSE 81; TEMP 37; O2SAT 94
[2017-02-04] MEDS: FENTANYL 50 MCG/HR TDSY TD SCH (16:30)
[2017-02-04] MEDS: FENTANYL PATCH REMOVE & WASTE SCH (16:35)
[2017-02-04 18:58] VITALS: BP 151/77; PULSE 92; TEMP 36.6; O2SAT 93
[2017-02-04] MEDS: ENOXAPARIN 150 MG/1ML SYR SQ SCH (19:53)
[2017-02-04] MEDS: TAMSULOSIN HCL 0.4 MG CAP PO SCH (19:54)
[2017-02-04] MEDS: TRAVOPROST Z 0.004% OPH SOLN 2.5 ML BTL OPL SCH (19:54)
[2017-02-04] MEDS: LISINOPRIL 5 MG TAB PO SCH (19:54)
[2017-02-04] MEDS: SIMVASTATIN 10 MG TAB PO SCH (19:54)
--- NOTE | 2017-02-04 21:23 | Palliative Care Progress Note ---
Palliative Care Progress Note Date of Service Feb 04, 2017. Subjective Pt evaluation today including: conversation w/ patient, physical exam, chart review Pain: improved - pt not able to rate PO Intake: fair to good Voiding: hull catheter in place Pt had increased confusion on 2 mg IV Dilaudid , he was started on a Fentanyl patch of 25 mcg ( oral morphine equivalent of approx 50 mg/24 hours) - his patch was increased this am to 50 mcg patch ( oral morphine equivalent of approx 100 mg /24 hours). Pain is much better controlled - pt was not able to sit on side of bed this afternoon, but was able to this evening ( 8 pm) and did attempt to stand, weakness, not pain kept him from being able to stand. Pt is very confused , asking to get to his car so he can drive to his bed in the hospital. Do not know what his baseline mental status is or if he has a h/o dementia or sundowning. 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) ENT: No hearing loss Respiratory: No cough, No shortness of breath Cardiac: No chest pain, No edema Abdomen: No pain, No nausea Male : + incontinence Neurologic: + memory loss, + weakness, + balance problems Psychiatric: + problem reported (increased confusion) Skin: No rash Objective Vital Signs Date Time Temp Pulse Resp B/P (MAP) Pulse Ox O2 Delivery O2 Flow Rate FiO2 02/04/17 20:00 Nasal Cannula 2.0 02/04/17 18:58 36.6 92 20 151/77 (101) 93 Nasal Cannula 2.0 02/04/17 16:00 Nasal Cannula 2.0 02/04/17 14:57 37.0 81 20 155/69 (97) 94 Nasal Cannula 2.0 02/04/17 08:00 Nasal Cannula 2.0 02/04/17 07:59 36.8 89 20 153/72 (99) 94 Nasal Cannula 2.0 02/04/17 04:42 36.8 81 20 122/62 (82) 94 Nasal Cannula 2.0 02/03/17 23:35 Nasal Cannula 2.0 02/03/17 23:17 36.7 89 20 111/50 (70) 94 Nasal Cannula 2.0 Physical Exam General Appearance: + pertinent finding (slightly agitated at not being allowed to get up - assisted nurse to allow pt to try to sit and then stand) 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, clouded cornea) ENT: hearing grossly normal Neck: supple Respiratory/Chest: no respiratory distress, + decreased breath sounds (both bases) Cardiovascular: regular rate, rhythm, + systolic murmur Abdomen: non tender Extremities: no pedal edema Neurologic/Psychiatric: + disoriented Skin: warm/dry Laboratory Results Last 24 Hours Test 02/04/17 05:33 02/04/17 05:39 White Blood Count 9.65 K/uL Red Blood Count 3.58 M/uL Hemoglobin 9.9 g/dL Hematocrit 31.4 % Mean Corpuscular Volume 87.7 fL Mean Corpuscular Hemoglobin 27.7 pg Mean Corpuscular Hemoglobin Concent 31.5 g/dl Platelet Count 161 K/uL Mean Platelet Volume 11.4 fL Neutrophils (%) (Auto) 91.4 % Lymphocytes (%) (Auto) 6.5 % Monocytes (%) (Auto) 0.8 % Eosinophils (%) (Auto) 1.1 % Basophils (%) (Auto) 0.0 % Neutrophils # (Auto) 8.81 K/uL Lymphocytes # (Auto) 0.63 K/uL Monocytes # (Auto) 0.08 K/uL Eosinophils # (Auto) 0.11 K/uL Basophils # (Auto) 0.00 K/uL RDW Standard Deviation 59.2 fL RDW Coefficient of Variation 18.6 % Immature Granulocyte % (Auto) 0.2 % Immature Granulocyte # (Auto) 0.02 K/uL Sodium Level 142 mmol/L Potassium Level 4.3 mmol/L Chloride Level 107 mmol/L Carbon Dioxide Level 30 mmol/L Anion Gap 5.0 mmol/L Blood Urea Nitrogen 25 mg/dl Creatinine 1.00 mg/dl Est Creatinine Clear Calc Drug Dose 71.3 ml/min Estimated GFR () 80.9 Estimated GFR (Non- 69.8 BUN/Creatinine Ratio 24.8 Random Glucose 147 mg/dl Calcium Level 9.7 mg/dl Magnesium Level 2.0 mg/dl Bedside Glucose 146 mg/dl Assessment and Plan (1) Lower back pain Status: Acute Assessment & Plan: Pain improved with increase in Fentanyl patch - increased confusion might need to be tolerated until XRT can alleviate some of the pain (2) Weakness Status: Acute Assessment & Plan: Pain not limiting pt this evening - weakness - h/o spinal stenosis and recent L4 fx (3) Fracture of lumbar spine Status: Acute Assessment & Plan: pain control and XRT to suspected mets (4) 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 cancer Status: Acute Assessment & Plan: pain control (5) Spinal stenosis Status: Chronic Assessment & Plan: weakness , pain control (6) Benign hypertension Status: Chronic Assessment & Plan: fair control on current meds (7) Diabetes mellitus Status: Chronic Assessment & Plan: diet controlled Will try to meet with when she visits to determine pt's baseline mental status and any h/o sundowning or confusion Total time at bedside 25 min assessing pt and pain level with assist from nursing to get pt in sitting position on side of bed and allow pt to attempt to stand. Palliative Performance Scale: 30 % Continued [facility] stay due to: inadequate oral pain control, voiding difficulties , ambulation difficulties Discharge planning: other (will likely need rehab and possible placement )
[2017-02-04 23:26] VITALS: BP 123/68; PULSE 91; TEMP 36.6; O2SAT 91
[2017-02-05] VITALS (9 sets, daily range): BP systolic 91–145; BP diastolic 47–76; PULSE 70–86; TEMP 36.5–36.7; O2SAT 94–96; BMI 31.2
[2017-02-05] MEDS: TEMAZEPAM 15 MG CAP PO PRN ×2 (00:53→20:05)
[2017-02-05] MEDS: IPRATROPIUM BROMIDE/ALBUTEROL respimat INH INH SCH ×4 (07:50→19:55)
[2017-02-05] MEDS: DORZOLAMIDE/TIMOLOL 22.3/6.8MG/ML 10 ML BTL OPL SCH ×2 (07:50→19:55)
[2017-02-05] MEDS: AMLODIPINE BESYLATE 5 MG TAB PO SCH (07:51)
[2017-02-05] MEDS: CHECK FENTANYL PATCH PLACEMENT SCH ×2 (07:51→16:13)
[2017-02-05] MEDS: SERTRALINE HCL 50 MG TAB PO SCH (07:51)
[2017-02-05] MEDS: FAMOTIDINE 20 MG TAB PO SCH ×2 (07:51→19:57)
[2017-02-05] MEDS: CYANOCOBALAMIN 500 MCG TAB (VIT B-12) PO SCH (07:51)
[2017-02-05] MEDS: CHOLECALCIFEROL 1000 INTER.UNIT TAB PO SCH (07:52)
[2017-02-05 08:29] LABS: COMPLETE YES; EOS % 2.3 %; HEMATOCRIT 31.7 % (42-52); IG% 0.2 %; LYMPH % 8.4 %; MEAN CELL VOLUME 87.6 fL (80-100); MEAN CORPUSCULAR HEMOGLOBIN 28.2 pg (25-34); MEAN CORPUSCULAR HGB CONC 32.2 g/dl (32-36); MONO % 0.7 %; NEUT % 88.4 %; PLATELET COUNT 169 K/uL (130-400); RED BLOOD COUNT 3.62 M/uL (4.7-6.1); WHITE BLOOD COUNT 5.98 K/uL (4.8-10.8)
[2017-02-05 08:53] LABS: BUN/CREATININE RATIO 28.7 (10-20); CALCIUM 10.3 mg/dl (8.5-10.1); CREATININE 0.83 mg/dl (0.60-1.40); MAGNESIUM 2.2 mg/dl (1.8-2.4); POTASSIUM 3.9 mmol/L (3.5-5.1)
[2017-02-05] MEDS ORDERED: FENTANYL PATCH REMOVE & WASTE SCH (08:59)
[2017-02-05] MEDS ORDERED: HYDROmorphone INJ 1 MG/ML SYR IV SCH (10:15)
--- NOTE | 2017-02-05 10:21 | Progress Note ---
Subjective Date of Service: Feb 05, 2017. Subjective Pt evaluation today including: conversation w/ patient, physical exam, chart review, lab review, review of studies (L-spine imaging, etc), conversation w/ independent crop consultant (radiation onc), review of inpatient medication list Pain: "not too bad" (with respect to back) PO Intake: fair per staff Voiding: hull catheter in place (now with new-onset hematuria) Pt sleeping upon my arrival for my assessment. Easily awoke. a/o x 3. 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6 91 20 123/68 (86) 91 Nasal Cannula 2.0 02/04/17 20:00 Nasal Cannula 2.0 02/04/17 18:58 36.6 92 20 151/77 (101) 93 Nasal Cannula 2.0 02/04/17 16:00 Nasal Cannula 2.0 02/04/17 14:57 37.0 81 20 155/69 (97) 94 Nasal Cannula 2.0 Physical Exam General Appearance: no apparent distress ENT: + pertinent finding (oral mucosa dry) Neck: no JVD Respiratory/Chest: no respiratory distress, no accessory muscle use, + decreased breath sounds (both bases) Cardiovascular: regular rate, rhythm, no gallop, + systolic murmur (2/6 LSB) Abdomen: normal bowel sounds, non tender, soft, + hepatomegaly (liver edge palpable) Extremities: no pedal edema Neurologic/Psychiatric: no motor/sensory deficits (of legs, good strength 5/5 b /l), alert, oriented x 3 Laboratory Results Last 24 Hours Test 02/05/17 07:55 White Blood Count 5.98 K/uL Red Blood Count 3.62 M/uL Hemoglobin 10.2 g/dL Hematocrit 31.7 % Mean Corpuscular Volume 87.6 fL Mean Corpuscular Hemoglobin 28.2 pg Mean Corpuscular Hemoglobin Concent 32.2 g/dl Platelet Count 169 K/uL Mean Platelet Volume 11.0 fL Neutrophils (%) (Auto) 88.4 % Lymphocytes (%) (Auto) 8.4 % Monocytes (%) (Auto) 0.7 % Eosinophils (%) (Auto) 2.3 % Basophils (%) (Auto) 0.0 % Neutrophils # (Auto) 5.29 K/uL Lymphocytes # (Auto) 0.50 K/uL Monocytes # (Auto) 0.04 K/uL Eosinophils # (Auto) 0.14 K/uL Basophils # (Auto) 0.00 K/uL RDW Standard Deviation 58.4 fL RDW Coefficient of Variation 18.3 % Immature Granulocyte % (Auto) 0.2 % Immature Granulocyte # (Auto) 0.01 K/uL Sodium Level 145 mmol/L Potassium Level 3.9 mmol/L Chloride Level 108 mmol/L Carbon Dioxide Level 31 mmol/L Anion Gap 6.0 mmol/L Blood Urea Nitrogen 24 mg/dl Creatinine 0.83 mg/dl Est Creatinine Clear Calc Drug Dose 85.3 ml/min Estimated GFR () 95.0 Estimated GFR (Non- 81.9 BUN/Creatinine Ratio 28.7 Random Glucose 134 mg/dl Calcium Level 10.3 mg/dl Magnesium Level 2.2 mg/dl Assessment and Plan 81yo male - 1. L4 metastatic disease with result severe pain - for palliative xrt today. appreciate rad onc and palliative care consults. dilaudid was d/c yesterday for concern of toxic encephalopathy. however had been receiving 2mg doses. try 1mg dose prior to xrt today. needs bowel regimen. 2. encephalopathy - thought to be toxic from narcotics. Improved today. check ammonia level in light of significant metastatic disease burden, r/o hepatic encephalopathy. send u/a and urine cx to r/o UTI. if all is negative consider head CT to r/o mets to brain. 3. h/o numerous PEs - on lovenox 1.5mg/kg/day. Now with hematuria. See below. Check Xa level TONIGHT 4 hours after lovenox dose. 4. hematuria - hopefully due to hull trauma. however send ua and urine cx to r/o UTI. also need Xa level to ensure lovenox dose is not supratherapeutic. 5. stage 4 pancreatic cancer - poor prognosis. need to discuss code status & plan of care with pt/ at some point. 6. constipation - needs bowel regimen. if ammonia is high then lactulose. 7. BPH - continue home meds. 8. HTN - controlled. 9. h/o T2DM - controlled. 10. pain - fentanyl patch added this admission. Dilaudid x 1 prior to xrt today. 11. abnormal LFTs - likely due to mets. Continued [facility] stay due to: inadequate oral pain control, voiding difficulties , ambulation difficulties, multiple IV medications needed Discharge planning: other (will likely need rehab and possible placement )
[2017-02-05 10:39] LABS: MANUAL MICROSCOPIC REQUIRED? YES; URINE APPEARANCE TURBID (CLEAR); URINE BILIRUBIN NEG (NEG); URINE COLOR RED; URINE NITRITE NEG (NEG); URINE PH 5.5 (4.5-7.5); URINE SPECIFIC GRAVITY 1.025 (1.000-1.030); UROBILINOGEN NEG (NEG)
[2017-02-05 10:44] LABS: REVIEW REQ? NO
[2017-02-05 10:49] LABS: URINE BACTERIA NEG (NEG); URINE RBC >30 /hpf (0-4)
[2017-02-05] MEDS ORDERED: LACTULOSE SYRUP 10 GM/15 ML BTL 473 ML PO STA (16:52)
--- NOTE | 2017-02-05 18:19 | Palliative Care Progress Note ---
Palliative Care Progress Note Date of Service Feb 05, 2017. Subjective Pt evaluation today including: conversation w/ patient, conversation w/ family , physical exam, chart review, lab review Pain: 8/10 on exam, increased after XRT PO Intake: FAIR Voiding: hull catheter in place Review of Systems Constitutional: No fever, No chills Eyes: No discharge ENT: No trouble swallowing Respiratory: No wheezing Cardiac: No chest pain, No edema Abdomen: + constipation, No nausea Male : + incontinence Neurologic: + weakness Psychiatric: + anxiety Skin: No rash Objective Vital Signs Date Time Temp Pulse Resp B/P (MAP) Pulse Ox O2 Delivery O2 Flow Rate FiO2 02/05/17 16:11 36.5 76 20 104/63 (77) 95 Nasal Cannula 2.0 02/05/17 16:00 Nasal Cannula 2.0 02/05/17 14:55 81 95 02/05/17 11:13 36.5 70 18 122/75 (91) 96 Nasal Cannula 2.0 02/05/17 08:00 Nasal Cannula 2.0 02/05/17 07:24 36.5 86 18 145/76 (99) 96 Nasal Cannula 2.0 02/05/17 04:17 36.5 86 20 142/71 (94) 94 Nasal Cannula 2.0 02/05/17 00:00 Nasal Cannula 2.0 02/04/17 23:26 36.6 91 20 123/68 (86) 91 Nasal Cannula 2.0 02/04/17 20:00 Nasal Cannula 2.0 02/04/17 18:58 36.6 92 20 151/77 (101) 93 Nasal Cannula 2.0 Physical Exam General Appearance: + mild distress 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) ENT: + pertinent finding (poor dentition) Neck: supple Respiratory/Chest: no respiratory distress Cardiovascular: regular rate, rhythm, + systolic murmur Abdomen: normal bowel sounds, non tender, soft Extremities: no pedal edema Neurologic/Psychiatric: alert, + motor weakness, + disoriented (confusion improved) Skin: no rash Laboratory Results Last 24 Hours Test 02/05/17 07:55 02/05/17 10:28 02/05/17 10:30 White Blood Count 5.98 K/uL Red Blood Count 3.62 M/uL Hemoglobin 10.2 g/dL Hematocrit 31.7 % Mean Corpuscular Volume 87.6 fL Mean Corpuscular Hemoglobin 28.2 pg Mean Corpuscular Hemoglobin Concent 32.2 g/dl Platelet Count 169 K/uL Mean Platelet Volume 11.0 fL Neutrophils (%) (Auto) 88.4 % Lymphocytes (%) (Auto) 8.4 % Monocytes (%) (Auto) 0.7 % Eosinophils (%) (Auto) 2.3 % Basophils (%) (Auto) 0.0 % Neutrophils # (Auto) 5.29 K/uL Lymphocytes # (Auto) 0.50 K/uL Monocytes # (Auto) 0.04 K/uL Eosinophils # (Auto) 0.14 K/uL Basophils # (Auto) 0.00 K/uL RDW Standard Deviation 58.4 fL RDW Coefficient of Variation 18.3 % Immature Granulocyte % (Auto) 0.2 % Immature Granulocyte # (Auto) 0.01 K/uL Sodium Level 145 mmol/L Potassium Level 3.9 mmol/L Chloride Level 108 mmol/L Carbon Dioxide Level 31 mmol/L Anion Gap 6.0 mmol/L Blood Urea Nitrogen 24 mg/dl Creatinine 0.83 mg/dl Est Creatinine Clear Calc Drug Dose 85.3 ml/min Estimated GFR () 95.0 Estimated GFR (Non- 81.9 BUN/Creatinine Ratio 28.7 Random Glucose 134 mg/dl Calcium Level 10.3 mg/dl Magnesium Level 2.2 mg/dl Ammonia 35.0 umol/L Urine Color RED Urine Appearance TURBID Urine pH 5.5 Urine Specific [place] 1.025 Urine Protein 2+ Urine Glucose (UA) TRACE Urine Ketones TRACE Urine Occult Blood 3+ Urine Nitrite NEG Urine Bilirubin NEG Urine Urobilinogen NEG Urine Leukocyte Esterase TRACE Urine WBC (Auto) /hpf Urine RBC (Auto) /hpf Urine Hyaline Casts (Auto) /lpf Urine Epithelial Cells (Auto) /lpf Urine Bacteria (Auto) Urine RBC >30 /hpf Urine WBC 10-30 /hpf Urine Epithelial Cells 0-5 /lpf Urine Renal Cells 0-5 /lpf Urine Bacteria NEG Urine Hyaline Casts 1-5 /lpf Assessment and Plan (1) Lower back pain Status: Acute Assessment & Plan: Getting XRT , improved on 50 mcg Fentanyl patch. If hallucinations and confusion continue to be a problem, can consider using methadone to control pain and decrease confusion (2) Weakness Status: Acute Assessment & Plan: Spinal stenosis and L4 fx, pt only able to stand for a few seconds - as per pt report (3) Fracture of lumbar spine Status: Acute Assessment & Plan: Pain control (4) 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 cancer Status: Acute Assessment & Plan: pain control (5) Spinal stenosis Status: Chronic Assessment & Plan: Weakness - worsening X 3 weeks per (6) Benign hypertension Status: Chronic Assessment & Plan: controlled on Norvasc and Lisinopril (7) Diabetes mellitus Status: Chronic Assessment & Plan: diet controlled - am glucose 134 (8) Altered mental status Status: Acute Assessment & Plan: reports no dementia or confusion prior to hospitalization - some due to Fentanyl, ammonia only slightly elevated - started on Lactulose, calcium rising - now 10.3 up from 9.1 likely due to bone mets Spoke with by phone - she is very realistic regarding pt's prognosis . Will cont Fentanyl patch, prn Dilaudid at only 1 mg prn, monitor calcium and ammonia levels - plan to meet with to discuss code status and goals of care on 02/09 Cont XRT Total time at 35 min with > 50% of time spent discussing prognosis, causes of AMS and pain control with pt at bedside and then by phone. Palliative Performance Scale: 30 % Continued [facility] stay due to: inadequate oral pain control, voiding difficulties , ambulation difficulties, multiple IV medications needed Discharge planning: other (will discuss with on 02/09)
[2017-02-05] MEDS: SODIUM CHLORIDE 0.9% 1000ML 1,000 ML IV SCH (18:57)
[2017-02-05] MEDS: ACETAMINOPHEN 325 MG TAB PO PRN (19:54)
[2017-02-05] MEDS: TRAVOPROST Z 0.004% OPH SOLN 2.5 ML BTL OPL SCH (19:55)
[2017-02-05] MEDS: ENOXAPARIN 150 MG/1ML SYR SQ SCH (19:55)
[2017-02-05] MEDS: SIMVASTATIN 10 MG TAB PO SCH (19:58)
[2017-02-05] MEDS: TAMSULOSIN HCL 0.4 MG CAP PO SCH (19:58)
[2017-02-05] MEDS: LISINOPRIL 5 MG TAB PO SCH (21:00)
[2017-02-06] VITALS (7 sets, daily range): BP systolic 111–133; BP diastolic 61–78; PULSE 66–75; TEMP 36.4–36.7; O2SAT 88–97; Ht 182.9 cm; Wt 98.3 kg
[2017-02-06] MEDS: CHECK FENTANYL PATCH PLACEMENT SCH ×4 (00:40→23:25)
[2017-02-06] MEDS: ACETAMINOPHEN 325 MG TAB PO PRN ×3 (04:36→15:26)
[2017-02-06] MEDS: FAMOTIDINE 20 MG TAB PO SCH ×3 (08:00→21:12)
[2017-02-06] MEDS: AMLODIPINE BESYLATE 5 MG TAB PO SCH ×2 (08:00→08:52)
[2017-02-06] MEDS: CHOLECALCIFEROL 1000 INTER.UNIT TAB PO SCH ×2 (08:00→08:51)
[2017-02-06] MEDS: SERTRALINE HCL 50 MG TAB PO SCH ×2 (08:00→08:52)
[2017-02-06] MEDS: CYANOCOBALAMIN 500 MCG TAB (VIT B-12) PO SCH ×2 (08:00→08:52)
[2017-02-06 08:40] LABS: HEMATOCRIT 29.2 % (42-52); MEAN CORPUSCULAR HEMOGLOBIN 28.6 pg (25-34); MEAN CORPUSCULAR HGB CONC 32.5 g/dl (32-36); RED BLOOD COUNT 3.32 M/uL (4.7-6.1); WHITE BLOOD COUNT 2.99 K/uL (4.8-10.8)
[2017-02-06 08:41] LABS: PLATELET COUNT 141 K/uL (130-400)
[2017-02-06] MEDS: IPRATROPIUM BROMIDE/ALBUTEROL respimat INH INH SCH ×4 (08:49→21:11)
[2017-02-06] MEDS: DORZOLAMIDE/TIMOLOL 22.3/6.8MG/ML 10 ML BTL OPL SCH ×2 (08:51→21:11)
[2017-02-06] MEDS: LACTULOSE SYRUP 10 GM/15 ML BTL 473 ML PO SCH (08:51)
[2017-02-06 09:09] LABS: BUN/CREATININE RATIO 29.4 (10-20); CALCIUM 10.1 mg/dl (8.5-10.1); CREATININE 0.82 mg/dl (0.60-1.40); POTASSIUM 4.1 mmol/L (3.5-5.1)
[2017-02-06] MEDS ORDERED: HYDROmorphone HCL 2 MG TAB ONE (12:13)
[2017-02-06] MEDS ORDERED: HYDROmorphone HCL 2 MG TAB PO PRN (12:15)
[2017-02-06] MEDS: SODIUM CHLORIDE 0.9% 1000ML 1,000 ML IV SCH (12:16)
[2017-02-06] MEDS ORDERED: NURSING VERBAL MED ORDER ONE (16:30)
[2017-02-06] MEDS: HYDROmorphone HCL 2 MG TAB PO PRN (16:35)
[2017-02-06] MEDS: SIMVASTATIN 10 MG TAB PO SCH (21:00)
[2017-02-06] MEDS: LISINOPRIL 5 MG TAB PO SCH (21:11)
[2017-02-06] MEDS: TAMSULOSIN HCL 0.4 MG CAP PO SCH (21:12)
[2017-02-06] MEDS: ENOXAPARIN 150 MG/1ML SYR SQ SCH (21:12)
[2017-02-06] MEDS: TRAVOPROST Z 0.004% OPH SOLN 2.5 ML BTL OPL SCH (21:13)
--- NOTE | 2017-02-06 21:23 | Progress Note ---
Subjective Date of Service: Feb 06, 2017. Subjective Pt evaluation today including: conversation w/ patient, conversation w/ family ( at bedside), physical exam, chart review, lab review, review of inpatient medication list Pain: back, right hip PO Intake: fair Voiding: hull catheter in place (with gross hematuria - but modestly improved) patient very awake, alert, oriented today and can answer all questions concurs he is back to baseline he has not ambulated in several days even prior to this hospital stay he was using a walker albeit on a limited basis ; that is, ambulation was very difficult even at home agrees he needs placement - she cannot care for him in his current state Problem List Medical Problems: (1) Back pain Status: Acute (2) Constipation Status: Acute (3) Dyspnea on exertion Status: Acute (4) Fracture of lumbar spine Status: Acute (5) Lower back pain Status: Acute (6) 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: Acute (7) 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 cancer Status: Acute (8) 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 cancer Status: Acute (9) Weakness Status: Acute Review of Systems Constitutional: No fever Respiratory: No shortness of breath Cardiac: No chest pain, No orthopnea Abdomen: No pain Objective Vital Signs Date Time Temp Pulse Resp B/P (MAP) Pulse Ox O2 Delivery O2 Flow Rate FiO2 02/06/17 19:45 36.5 75 20 131/71 (91) 90 Room Air 02/06/17 16:03 Room Air 02/06/17 15:04 36.7 66 20 119/72 (88) 93 Room Air 02/06/17 11:32 36.5 73 20 117/61 (79) 94 Nasal Cannula 2.0 02/06/17 08:44 36.4 75 20 131/78 (95) 97 02/06/17 08:00 Nasal Cannula 2.0 02/06/17 04:12 36.4 70 20 111/64 (80) 93 Nasal Cannula 2.0 02/06/17 00:00 Nasal Cannula 2.0 02/05/17 21:17 109/64 (79) Physical Exam General Appearance: no apparent distress Eyes: + pertinent finding (right eye ptosis) ENT: pharynx normal Neck: no JVD Respiratory/Chest: lungs clear, no respiratory distress, no accessory muscle use Cardiovascular: regular rate, rhythm, no gallop Abdomen: normal bowel sounds, non tender, soft, no organomegaly Extremities: no pedal edema Neurologic/Psychiatric: alert, oriented x 3, + pertinent finding (no asterixis ) Skin: + pertinent finding (port, left chest - clean) Laboratory Results Last 24 Hours Test 02/06/17 00:13 02/06/17 08:11 Heparin Anti-Xa Act, Low Molec Wt 0.91 IU/ML White Blood Count 2.99 K/uL Red Blood Count 3.32 M/uL Hemoglobin 9.5 g/dL Hematocrit 29.2 % Mean Corpuscular Volume 88.0 fL Mean Corpuscular Hemoglobin 28.6 pg Mean Corpuscular Hemoglobin Concent 32.5 g/dl RDW Standard Deviation 59.1 fL RDW Coefficient of Variation 18.2 % Platelet Count 141 K/uL Mean Platelet Volume 11.0 fL Sodium Level 146 mmol/L Potassium Level 4.1 mmol/L Chloride Level 111 mmol/L Carbon Dioxide Level 31 mmol/L Anion Gap 4.0 mmol/L Blood Urea Nitrogen 24 mg/dl Creatinine 0.82 mg/dl Est Creatinine Clear Calc Drug Dose 87.2 ml/min Estimated GFR () 95.4 Estimated GFR (Non- 82.4 BUN/Creatinine Ratio 29.4 Random Glucose 123 mg/dl Calcium Level 10.1 mg/dl Assessment and Plan 81yo male - 1. L4 metastatic disease with resulting severe pain and some element of radiculopathy - continue palliative XRT. appreciate rad onc and palliative care consults. cont fentanyl patch add dilaudid 2mg po q6h prn and aggressive titration of such for his pain 2. encephalopathy - thought to be toxic from narcotics - resolved may have had element of hepatic encephalopathy as well no asterixis on exam today 3. h/o numerous PEs - on lovenox 1.5mg/kg/day. Now with hematuria. See below. Xa level is perfect at just shy of 1. 4. hematuria - hopefully due to hull trauma. grossly it looked modestly better today. he has no clotting. urine cx negative for UTI. hopefully this will clear. 5. stage 4 pancreatic cancer - poor prognosis. need to discuss code status. 6. constipation - lactulose. 7. BPH - continue home meds. 8. HTN - controlled. 9. h/o T2DM - controlled. 10. pain - fentanyl patch + po dilaudid. 11. abnormal LFTs - likely due to mets. 12. anemia - multifactorial - stable; repeat CBC in am. 13. PT, OT to help with disposition but doubt he will tolerate large quantities of such due to pain. 14. mild acute kidney injury - resolved. extensively updated today dispo - probably SNF; doubt he could tolerate 3 hours of therapy at [facility] in current condition Continued [facility] stay due to: inadequate oral pain control, voiding difficulties , ambulation difficulties, multiple IV medications needed Discharge planning: uncertain
[2017-02-07 03:42] VITALS: BP 157/80; PULSE 73; TEMP 36.7; O2SAT 95
[2017-02-07 06:20] LABS: HEMATOCRIT 29.9 % (42-52); MEAN CELL VOLUME 87.9 fL (80-100); MEAN CORPUSCULAR HEMOGLOBIN 28.5 pg (25-34); MEAN CORPUSCULAR HGB CONC 32.4 g/dl (32-36); MEAN PLATELET VOLUME 11.1 fL (7.4-10.4); PLATELET COUNT 130 K/uL (130-400); WHITE BLOOD COUNT 1.58 K/uL (4.8-10.8)
[2017-02-07 07:07] LABS: BUN/CREATININE RATIO 28.9 (10-20); CALCIUM 10.2 mg/dl (8.5-10.1); CREATININE 0.64 mg/dl (0.60-1.40); POTASSIUM 4.1 mmol/L (3.5-5.1)
[2017-02-07 07:38] VITALS: BP 153/77; PULSE 75; TEMP 36.7; O2SAT 95
[2017-02-07] MEDS: CYANOCOBALAMIN 500 MCG TAB (VIT B-12) PO SCH (08:00)
[2017-02-07] MEDS: FAMOTIDINE 20 MG TAB PO SCH ×2 (08:00→19:51)
[2017-02-07] MEDS: CHOLECALCIFEROL 1000 INTER.UNIT TAB PO SCH (08:00)
[2017-02-07] MEDS: SERTRALINE HCL 50 MG TAB PO SCH (08:00)
[2017-02-07] MEDS: AMLODIPINE BESYLATE 5 MG TAB PO SCH (08:00)
[2017-02-07] MEDS: DORZOLAMIDE/TIMOLOL 22.3/6.8MG/ML 10 ML BTL OPL SCH ×2 (08:00→19:50)
[2017-02-07] MEDS: LACTULOSE SYRUP 10 GM/15 ML BTL 473 ML PO SCH ×2 (08:00→18:22)
[2017-02-07] MEDS: CHECK FENTANYL PATCH PLACEMENT SCH ×3 (08:23→23:27)
[2017-02-07] MEDS: HYDROmorphone HCL 2 MG TAB PO PRN ×2 (08:27→18:25)
[2017-02-07] MEDS: IPRATROPIUM BROMIDE/ALBUTEROL respimat INH INH SCH ×4 (08:29→19:50)
[2017-02-07] MEDS: FENTANYL PATCH REMOVE & WASTE SCH (08:59)
[2017-02-07] MEDS: FENTANYL 50 MCG/HR TDSY TD SCH (09:37)
[2017-02-07] MEDS: SODIUM CHLORIDE 0.9% 1000ML 1,000 ML IV SCH (11:09)
[2017-02-07 11:14] VITALS: BP 149/74; PULSE 75; TEMP 36.7; O2SAT 96
[2017-02-07 15:08] VITALS: BP 151/69; PULSE 80; TEMP 36.6; O2SAT 94
--- NOTE | 2017-02-07 18:13 | DIAGNOSTIC IMAGING REPORT ---
HEAD CT NONCONTRAST CT DOSE: 614.27 mGy.cm HISTORY: visual disturbance, known metastatic cancer; eval for mets, cva TECHNIQUE: Multiaxial CT images of the head were performed without the use of intravenous contrast. Automated exposure control was utilized for this study. A dose lowering technique was utilized adhering to the principles of ALARA. Comparison: Head CT 09/14/2014. Findings: The paranasal sinuses and mastoid air cells are clear. The calvarium and skull base are intact. There is no mass, hematoma, midline shift, acute infarct. White matter hypodensity is nonspecific but suggestive of microvascular ischemic change. The ventricles and sulci demonstrate mild age-related involutional changes. Suboptimal evaluation for intracranial masses on this noncontrast study. However, no definite intracranial lesions identified to suggest metastatic disease. No change in the calcified and atrophic right globe. Impression: No significant change compared to the prior study. No acute intracranial abnormality. No evidence for intracranial metastatic disease. Electronically signed by: Jorge Luis Gu M.D. 02/07/2017 6:12 PM Dictated Date/Time: 02/07/2017 6:08 PM
[2017-02-07] MEDS ORDERED: FENTANYL PATCH REMOVE & WASTE SCH (18:59)
[2017-02-07] MEDS ORDERED: FENTANYL 25 MCG/HR TDSY TD SCH (19:00)
[2017-02-07] MEDS: DEXAMETHASONE INJ 4 MG in SYRINGE 0 ML IV SCH (19:10)
[2017-02-07] MEDS: LISINOPRIL 5 MG TAB PO SCH (19:50)
[2017-02-07] MEDS: ENOXAPARIN 150 MG/1ML SYR SQ SCH (19:50)
[2017-02-07] MEDS: TRAVOPROST Z 0.004% OPH SOLN 2.5 ML BTL OPL SCH (19:50)
[2017-02-07] MEDS: SIMVASTATIN 10 MG TAB PO SCH (19:50)
[2017-02-07] MEDS: TAMSULOSIN HCL 0.4 MG CAP PO SCH (19:50)
[2017-02-07 20:01] VITALS: BP 148/62; PULSE 74; TEMP 36.9; O2SAT 92
--- NOTE | 2017-02-07 20:14 | Progress Note ---
Subjective Date of Service: Feb 07, 2017. Subjective Pt evaluation today including: conversation w/ patient, conversation w/ family (, daughter), physical exam, chart review, lab review, review of studies ( CT head), review of inpatient medication list Pain: denies back pain today PO Intake: poor Voiding: hull catheter in place (hematuria resolving nicely) patient with visual disturbance along with encephalopathy once again he knows he is in the hospital, however his symptoms apparently worsened late AM/early afternoon - received po dilaudid this AM very weak, eating little, has not been out of bed refusing meds Problem List Medical Problems: (1) Back pain Status: Acute (2) Constipation Status: Acute (3) Dyspnea on exertion Status: Acute (4) Fracture of lumbar spine Status: Acute (5) Lower back pain Status: Acute (6) 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: Acute (7) 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 cancer Status: Acute (8) 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 cancer Status: Acute (9) Weakness Status: Acute Review of Systems Constitutional: No fever Respiratory: No dyspnea at rest Cardiac: No chest pain Abdomen: No pain Objective Vital Signs Date Time Temp Pulse Resp B/P (MAP) Pulse Ox O2 Delivery O2 Flow Rate FiO2 02/07/17 16:00 Room Air 02/07/17 15:08 36.6 80 20 151/69 (96) 94 02/07/17 11:14 36.7 75 20 149/74 (99) 96 02/07/17 08:00 Room Air 02/07/17 07:38 36.7 75 18 153/77 (102) 95 02/07/17 03:42 36.7 73 16 157/80 (105) 95 Nasal Cannula 2.0 02/07/17 00:00 Nasal Cannula 2.0 02/06/17 23:18 94 Nasal Cannula 2.0 02/06/17 23:17 36.6 67 16 133/71 (91) 88 Room Air Physical Exam General Appearance: no apparent distress Eyes: + pertinent finding (opaque pupil on right with ptosis (baseline); left eye EOMI; pupil pinpoint on left, however) ENT: + pertinent finding (MM dry) Neck: no JVD Respiratory/Chest: lungs clear, no respiratory distress, no accessory muscle use Cardiovascular: regular rate, rhythm, no gallop, no murmur Abdomen: normal bowel sounds, non tender, soft, no organomegaly Extremities: no pedal edema Neurologic/Psychiatric: no motor/sensory deficits (strength of right leg is modestly decreased vs left leg; arm strength 5/5 b/l), alert, oriented x 3 ( surprisingly) Laboratory Results Last 24 Hours Test 02/07/17 05:02 White Blood Count 1.58 K/uL Red Blood Count 3.40 M/uL Hemoglobin 9.7 g/dL Hematocrit 29.9 % Mean Corpuscular Volume 87.9 fL Mean Corpuscular Hemoglobin 28.5 pg Mean Corpuscular Hemoglobin Concent 32.4 g/dl RDW Standard Deviation 58.1 fL RDW Coefficient of Variation 18.1 % Platelet Count 130 K/uL Mean Platelet Volume 11.1 fL Sodium Level 145 mmol/L Potassium Level 4.1 mmol/L Chloride Level 110 mmol/L Carbon Dioxide Level 30 mmol/L Anion Gap 5.0 mmol/L Blood Urea Nitrogen 19 mg/dl Creatinine 0.64 mg/dl Est Creatinine Clear Calc Drug Dose 110.4 ml/min Estimated GFR () 105.7 Estimated GFR (Non- 91.2 BUN/Creatinine Ratio 28.9 Random Glucose 98 mg/dl Calcium Level 10.2 mg/dl Assessment and Plan 81yo male - 1. L4 metastatic disease with resulting severe pain and some element of radiculopathy - continue palliative XRT if desired and/or tolerated. add steroids today. appreciate rad onc and palliative care consults. cont fentanyl patch cont dilaudid 2. encephalopathy - thought to be toxic from narcotics - along with possible hepatic encephalopathy. He is worse today and now having visual disturbance. CT head w/o metastatic disease today I believe much of his encephalopathy is due to build-up of fentanyl patch +/- dilaudid; probably former. He has extensive mets to liver likely leading to build-up of narcotics. he is a new start to fentanyl patch as of several days ago; was never on 25mcg patch (he was placed directly on 50mcg patch as a new start) will go back to 25mcg patch cont dilaudid PO add decadron 4mg IV q8h recheck ammonia level in am 3. h/o numerous PEs - on lovenox 1.5mg/kg/day. Xa level is perfect at just shy of 1. 4. hematuria - improved - was due to hull trauma in setting of lovenox use urine cx neg H/H stable 5. stage 4 pancreatic cancer - very, very poor prognosis. 6. constipation - lactulose. 7. BPH - continue home meds. 8. HTN - controlled. 9. h/o T2DM - controlled. 10. pain - fentanyl patch + po dilaudid + steroids 11. abnormal LFTs - due to mets. 12. anemia - multifactorial - stable 13. mild acute kidney injury - resolved. updated Luisa Rader, daughter, by phone today; updated at bedside again today I had a crista discussion with daughter today about her father's status he obviously is doing very poorly on a general basis and I anticipate very little improvement, if any tomorrow I will have a formal hospice discussion with the pt (if he is alert enough), his , and children if available discuss code status then as well Luisa's contact #'s: cell: [phone] home: [phone] Continued [facility] stay due to: inadequate oral pain control, voiding difficulties , ambulation difficulties, multiple IV medications needed Discharge planning: uncertain
[2017-02-08] VITALS (7 sets, daily range): BP systolic 128–166; BP diastolic 77–86; PULSE 64–85; TEMP 36.4–36.9; O2SAT 93–97
[2017-02-08] MEDS: DEXAMETHASONE INJ 4 MG in SYRINGE 0 ML IV SCH ×3 (02:35→18:59)
[2017-02-08] MEDS: SODIUM CHLORIDE 0.9% 1000ML 1,000 ML IV SCH (03:57)
[2017-02-08 06:02] LABS: BASO % 0.3 %; BASO ABS # 0.01 K/uL (0-0.2); COMPLETE YES; HEMATOCRIT 33.3 % (42-52); IG% 2.7 %; LYMPH % 12.5 %; LYMPH ABS # 0.42 K/uL (1.2-3.4); MEAN CELL VOLUME 86.5 fL (80-100); MEAN CORPUSCULAR HEMOGLOBIN 28.1 pg (25-34); MEAN CORPUSCULAR HGB CONC 32.4 g/dl (32-36); MEAN PLATELET VOLUME 10.3 fL (7.4-10.4); MONO % 2.1 %; NEUT % 82.4 %; PLATELET COUNT 118 K/uL (130-400); RED BLOOD COUNT 3.85 M/uL (4.7-6.1); WHITE BLOOD COUNT 3.35 K/uL (4.8-10.8)
[2017-02-08 06:34] LABS: BUN/CREATININE RATIO 20.7 (10-20); CALCIUM 10.6 mg/dl (8.5-10.1); CREATININE 0.84 mg/dl (0.60-1.40); POTASSIUM 4.6 mmol/L (3.5-5.1)
[2017-02-08] MEDS: CHOLECALCIFEROL 1000 INTER.UNIT TAB PO SCH ×2 (08:00→08:21)
[2017-02-08] MEDS: CYANOCOBALAMIN 500 MCG TAB (VIT B-12) PO SCH ×2 (08:00→08:22)
[2017-02-08] MEDS: CHECK FENTANYL PATCH PLACEMENT SCH ×2 (08:19→16:00)
[2017-02-08] MEDS: DORZOLAMIDE/TIMOLOL 22.3/6.8MG/ML 10 ML BTL OPL SCH ×2 (08:20→19:12)
[2017-02-08] MEDS: IPRATROPIUM BROMIDE/ALBUTEROL respimat INH INH SCH (08:20)
[2017-02-08] MEDS: SERTRALINE HCL 50 MG TAB PO SCH (08:22)
[2017-02-08] MEDS: FAMOTIDINE 20 MG TAB PO SCH ×2 (08:22→19:13)
[2017-02-08] MEDS: AMLODIPINE BESYLATE 5 MG TAB PO SCH (08:22)
[2017-02-08] MEDS: LACTULOSE SYRUP 10 GM/15 ML BTL 473 ML PO SCH (08:43)
[2017-02-08] MEDS: HYDROmorphone HCL 2 MG TAB PO PRN ×2 (11:48→19:12)
[2017-02-08] MEDS ORDERED: IPRATROPIUM BROMIDE/ALBUTEROL respimat INH INH PRN (12:00)
[2017-02-08] MEDS: ACETAMINOPHEN 325 MG TAB PO PRN (14:27)
--- NOTE | 2017-02-08 18:54 | Progress Note ---
Subjective Date of Service: Feb 08, 2017. Subjective Pt evaluation today including: conversation w/ patient, conversation w/ family ( at bedside), physical exam, chart review, lab review, review of inpatient medication list Pain: back but improved today PO Intake: poor Voiding: hull catheter in place (hematuria improved) had a VERY lengthy discussion today with the patient and his regarding the current status of his cancer, his current problems (namely the L4 met with resulting pain), the encephalopathy from the pain meds/elevated ammonia, dispo plan (home w/ HH or hospice vs SNF with hospice vs other), code status he apparently was confused again in the middle of the night Problem List Medical Problems: (1) Back pain Status: Acute (2) Constipation Status: Acute (3) Dyspnea on exertion Status: Acute (4) Fracture of lumbar spine Status: Acute (5) Lower back pain Status: Acute (6) 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: Acute (7) 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 cancer Status: Acute (8) 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 cancer Status: Acute (9) Weakness Status: Acute Review of Systems Constitutional: No fever Respiratory: No dyspnea at rest Cardiac: No chest pain, No orthopnea Abdomen: No pain, No nausea, No vomiting Objective Vital Signs Date Time Temp Pulse Resp B/P (MAP) Pulse Ox O2 Delivery O2 Flow Rate FiO2 02/08/17 16:00 Nasal Cannula 2.0 02/08/17 15:03 36.9 71 20 142/78 (99) 96 Nasal Cannula 2.0 02/08/17 08:18 85 147/81 (103) 02/08/17 08:00 Nasal Cannula 2.0 02/08/17 07:58 36.4 72 20 156/81 (106) 97 Nasal Cannula 2.0 02/08/17 05:04 36.4 64 20 157/82 (107) 94 Nasal Cannula 2.0 02/08/17 02:40 73 146/86 (106) 02/08/17 00:00 36.6 71 20 166/83 (110) 94 Nasal Cannula 2.0 02/07/17 23:25 Nasal Cannula 2.0 02/07/17 20:01 36.9 74 18 148/62 (90) 92 Nasal Cannula 2.0 02/07/17 20:00 Nasal Cannula 2.0 Physical Exam General Appearance: no apparent distress Eyes: + pertinent finding (right eye ptosis) ENT: pharynx normal (MMM) Neck: no JVD Respiratory/Chest: lungs clear, no respiratory distress, no accessory muscle use Cardiovascular: regular rate, rhythm, no gallop, no murmur Abdomen: normal bowel sounds, non tender, soft, no organomegaly Extremities: no pedal edema Neurologic/Psychiatric: alert, oriented x 3 Laboratory Results Last 24 Hours Test 02/08/17 05:51 White Blood Count 3.35 K/uL Red Blood Count 3.85 M/uL Hemoglobin 10.8 g/dL Hematocrit 33.3 % Mean Corpuscular Volume 86.5 fL Mean Corpuscular Hemoglobin 28.1 pg Mean Corpuscular Hemoglobin Concent 32.4 g/dl Platelet Count 118 K/uL Mean Platelet Volume 10.3 fL Neutrophils (%) (Auto) 82.4 % Lymphocytes (%) (Auto) 12.5 % Monocytes (%) (Auto) 2.1 % Eosinophils (%) (Auto) 0.0 % Basophils (%) (Auto) 0.3 % Neutrophils # (Auto) 2.76 K/uL Lymphocytes # (Auto) 0.42 K/uL Monocytes # (Auto) 0.07 K/uL Eosinophils # (Auto) 0.00 K/uL Basophils # (Auto) 0.01 K/uL RDW Standard Deviation 55.5 fL RDW Coefficient of Variation 17.7 % Immature Granulocyte % (Auto) 2.7 % Immature Granulocyte # (Auto) 0.09 K/uL Nucleated RBC Absolute Count (auto) 0.03 K/uL Nucleated Red Blood Cells % 0.8 % Sodium Level 141 mmol/L Potassium Level 4.6 mmol/L Chloride Level 108 mmol/L Carbon Dioxide Level 28 mmol/L Anion Gap 5.0 mmol/L Blood Urea Nitrogen 17 mg/dl Creatinine 0.84 mg/dl Est Creatinine Clear Calc Drug Dose 84.1 ml/min Estimated GFR () 94.5 Estimated GFR (Non- 81.5 BUN/Creatinine Ratio 20.7 Random Glucose 183 mg/dl Calcium Level 10.6 mg/dl Ammonia 30.0 umol/L Assessment and Plan 81yo male - 1. L4 metastatic disease with resulting severe pain and some element of radiculopathy - continue palliative XRT if desired and/or tolerated. cont decadron IV. appreciate rad onc and palliative care consults. cont fentanyl patch and dilaudid as is - pain is relatively controlled today and he is more lucid than yesterday 2. encephalopathy - thought to be toxic from narcotics - along with possible hepatic encephalopathy. Improved. head CT with no mets, ICH, or stroke ammonia level normal today; cont lactulose 15cc daily 3. h/o numerous PEs - on lovenox 1.5mg/kg/day. Xa level was perfect at just shy of 1. 4. hematuria - improved - was due to hull trauma in setting of lovenox use urine cx neg H/H stable 5. stage 4 pancreatic cancer - very, very poor prognosis. 6. constipation - lactulose. 7. BPH - continue home meds. 8. HTN - controlled. 9. h/o T2DM - controlled. 10. pain - fentanyl patch + po dilaudid + steroids 11. abnormal LFTs - due to mets. 12. anemia - multifactorial - stable 13. mild acute kidney injury - resolved. spent nearly 50 minutes today discussing code status, status of cancer, care plan, whether to pursue hospice, etc fortunately the patient was very lucid today and could participate in the conversation both he and his wish to pursue hospice at this time they both stated "do nothing" if he a cardiac or respiratory arrest; thus, he is now level 5 DNR we discussed options for hospice - home with hospice vs SNF with hospice; leaning towards latter as they cannot afford private duty nursing and they have no other family in the area to assist wish his care at home will d/w social work tomorrow the above will d/c fluids, any unnecessary meds, and likely d/c his lovenox if they indeed go the hospice route diet as tolerated focus on pain control as currently doing Luis E contact #'s (daughter): cell: [phone] home: [phone] Continued [facility] stay due to: inadequate oral pain control, voiding difficulties , ambulation difficulties, multiple IV medications needed, home environment unsafe for pt Discharge planning: uncertain
[2017-02-08] MEDS: ENOXAPARIN 150 MG/1ML SYR SQ SCH ×2 (19:12→19:17)
[2017-02-08] MEDS: TRAVOPROST Z 0.004% OPH SOLN 2.5 ML BTL OPL SCH (19:13)
[2017-02-08] MEDS: LISINOPRIL 5 MG TAB PO SCH (19:14)
[2017-02-09] VITALS (8 sets, daily range): BP systolic 118–172; BP diastolic 70–90; PULSE 65–85; TEMP 36.4–36.8; O2SAT 94–99
[2017-02-09] MEDS: DEXAMETHASONE INJ 4 MG in SYRINGE 0 ML IV SCH ×3 (02:39→18:42)
[2017-02-09] MEDS: CHECK FENTANYL PATCH PLACEMENT SCH ×2 (07:36)
[2017-02-09] MEDS: DORZOLAMIDE/TIMOLOL 22.3/6.8MG/ML 10 ML BTL OPL SCH ×2 (07:36→20:26)
[2017-02-09] MEDS: LACTULOSE SYRUP 10 GM/15 ML BTL 473 ML PO SCH (07:36)
[2017-02-09] MEDS: SERTRALINE HCL 50 MG TAB PO SCH (07:37)
[2017-02-09] MEDS: FAMOTIDINE 20 MG TAB PO SCH ×2 (07:37→20:25)
[2017-02-09] MEDS: AMLODIPINE BESYLATE 5 MG TAB PO SCH (07:37)
--- NOTE | 2017-02-09 09:38 | Palliative Care Progress Note ---
Palliative Care Progress Note Date of Service Feb 09, 2017. Subjective Pt evaluation today including: conversation w/ patient, conversation w/ family , physical exam, chart review, lab review, conversation w/ biometrics consultant Pain: improved, not well controlled pain wih turning and movement. PO Intake: poor Review of Systems Constitutional: + weakness, No fever, No chills Eyes: No discharge ENT: No sore throat Respiratory: No cough Cardiac: No chest pain, No edema Abdomen: No pain, No nausea Musculoskeletal: No swelling Male : + hematuria (improving) Neurologic: + weakness, + problem reported (confusion on opioid pain meds) Psychiatric: + problem reported (increased confusion and hallucinations at night. ), No depression symptoms, No anxiety Skin: No rash Objective Vital Signs Date Time Temp Pulse Resp B/P (MAP) Pulse Ox O2 Delivery O2 Flow Rate FiO2 02/09/17 08:00 Nasal Cannula 2.0 02/09/17 07:35 65 159/90 (113) 02/09/17 07:11 36.5 68 20 153/74 (100) 97 Nasal Cannula 2.0 02/09/17 04:39 36.8 65 19 172/75 (107) 94 Nasal Cannula 2.0 02/09/17 00:11 36.8 70 19 136/76 (96) 97 2.0 02/09/17 00:00 Nasal Cannula 2.0 02/08/17 20:00 Nasal Cannula 2.0 02/08/17 19:28 36.9 72 18 128/77 (94) 93 Nasal Cannula 2.0 02/08/17 16:00 Nasal Cannula 2.0 02/08/17 15:03 36.9 71 20 142/78 (99) 96 Nasal Cannula 2.0 Physical Exam General Appearance: no apparent distress Eyes: + pertinent finding (clouded cornea with blindness R eye) ENT: hearing grossly normal Neck: supple Respiratory/Chest: no respiratory distress Cardiovascular: regular rate, rhythm, no edema, + systolic murmur Abdomen: non tender, soft Extremities: + pertinent finding (LE weakness) Neurologic/Psychiatric: alert, + motor weakness Skin: normal color, warm/dry Assessment and Plan (1) Lower back pain Status: Acute Assessment & Plan: Improved, but still having pain and hallucinations on Fentanyl pach. Discussed replacing patch with Methadone would start 2.5 mg methadone Q 12 hours and remove patch - he will cont to need prn PO dilaudid for break thru pain until methadone "kicks in" takes 5-7 days to reach steady state. (2) Weakness Status: Acute Assessment & Plan: h/o spinal stenosis and now a L4 compression fx pain control (3) Fracture of lumbar spine Status: Acute Assessment & Plan: Pain control, XRT to spine (4) 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 cancer Status: Acute Assessment & Plan: XRT to spine (5) Spinal stenosis Status: Chronic Assessment & Plan: Weakness and pain control (6) Benign hypertension Status: Chronic Assessment & Plan: Fair control on current meds (7) Diabetes mellitus Status: Chronic Assessment & Plan: Diet controlled (8) Altered mental status Status: Acute Assessment & Plan: Improving - still having hallucinations, increased in evenings Met with and attending physician case management to help determine place of care when pain is controlled Total time at 35 min with > 50% of time spent discussing prognosis, causes of AMS and pain treatment options with pt, and attending physician Palliative Performance Scale: 30 % Continued [facility] stay due to: inadequate oral pain control, ambulation difficulties, home environment unsafe for pt Discharge planning: uncertain
[2017-02-09] MEDS: HYDROmorphone HCL 2 MG TAB PO PRN (14:16)
[2017-02-09] MEDS ORDERED: NURSING VERBAL MED ORDER ONE (14:30)
[2017-02-09] MEDS: METHADONE HCL 5 MG TAB PO SCH ×2 (15:59→20:26)
[2017-02-09] MEDS: ENOXAPARIN 150 MG/1ML SYR SQ SCH (20:25)
[2017-02-09] MEDS: LISINOPRIL 5 MG TAB PO SCH (20:25)
[2017-02-09] MEDS: TRAVOPROST Z 0.004% OPH SOLN 2.5 ML BTL OPL SCH (20:31)
--- NOTE | 2017-02-09 21:10 | Progress Note ---
Subjective Date of Service: Feb 09, 2017. Subjective Pt evaluation today including: conversation w/ patient, conversation w/ family (), physical exam, chart review, conversation w/ senior consumer insights consultant (palliative care ), review of inpatient medication list Pain: back - ongoing, needing prn dilaudid po PO Intake: fair at best Voiding: hull catheter in place hematuria in hull resolved pt's again reports they wish to move forward with hospice at SNF - likely [facility] he has no new complaints did have mild confusion again with hallucinations last pm but none this am Problem List Medical Problems: (1) Back pain Status: Acute (2) Constipation Status: Acute (3) Dyspnea on exertion Status: Acute (4) Fracture of lumbar spine Status: Acute (5) Lower back pain Status: Acute (6) 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0 02/09/17 07:35 65 159/90 (113) 02/09/17 07:11 36.5 68 20 153/74 (100) 97 Nasal Cannula 2.0 02/09/17 04:39 36.8 65 19 172/75 (107) 94 Nasal Cannula 2.0 02/09/17 00:11 36.8 70 19 136/76 (96) 97 2.0 02/09/17 00:00 Nasal Cannula 2.0 Physical Exam General Appearance: no apparent distress ENT: pharynx normal (MM slightly dry) Neck: no JVD Respiratory/Chest: lungs clear, no respiratory distress, no accessory muscle use Cardiovascular: regular rate, rhythm, no gallop, no JVD Abdomen: normal bowel sounds, non tender, soft, no organomegaly, + distended ( slight) Extremities: no pedal edema Neurologic/Psychiatric: alert, oriented x 3 Skin: no rash Assessment and Plan 81yo male - 1. L4 metastatic disease with resulting severe pain and some element of radiculopathy - continue palliative XRT if desired and/or tolerated. cont decadron - change to PO today - 4mg TID. appreciate rad onc and palliative care consults. spoke with Dr. Weinberg who recommends we transition him off fentanyl patch to po methadone she recommends 2.5mg BID in [place] of fentanyl patch continue PO dilaudid prn hope is that he stops having hallucinations from the narcotics as this has been quite distressing to him 2. encephalopathy - thought to be toxic from narcotics - along with possible hepatic encephalopathy. head CT with no mets, ICH, or stroke ammonia level did normalize with lactulose we are attempting to change his narcotics to help with this issue consider low dose seroquel at HS if needed 3. h/o numerous PEs - on lovenox 1.5mg/kg/day - since we are transitioning to hospice will d/c 4. hematuria - resolved; was due to hull trauma in setting of lovenox 5. stage 4 pancreatic cancer - very, very poor prognosis - patient and his understand that this will progress quickly in the next few weeks. 6. constipation - lactulose. 7. BPH - since he has a hull will d/c flomax. 8. HTN - controlled. 9. h/o T2DM - controlled. 10. pain - changing to methadone; cont oral dilaudid + steroids 11. abnormal LFTs - due to mets. 12. anemia - multifactorial - stable; no need to recheck labs again 13. mild acute kidney injury - resolved. dispo - [facility] on hospice perhaps Wednesday Lusia's contact #'s (daughter): cell: [phone] home: [phone] Continued [facility] stay due to: inadequate oral pain control, voiding difficulties , ambulation difficulties, home environment unsafe for pt Discharge planning: senior care facility
[2017-02-10] VITALS (8 sets, daily range): BP systolic 129–160; BP diastolic 50–81; PULSE 58–68; TEMP 36.3–36.7; O2SAT 94–98
[2017-02-10 06:38] LABS: CREATININE 0.82 mg/dl (0.60-1.40)
[2017-02-10] MEDS: SERTRALINE HCL 50 MG TAB PO SCH (07:46)
[2017-02-10] MEDS: AMLODIPINE BESYLATE 5 MG TAB PO SCH (07:47)
[2017-02-10] MEDS: DORZOLAMIDE/TIMOLOL 22.3/6.8MG/ML 10 ML BTL OPL SCH ×2 (07:48→20:32)
[2017-02-10] MEDS: LACTULOSE SYRUP 10 GM/15 ML BTL 473 ML PO SCH (07:48)
[2017-02-10] MEDS: FAMOTIDINE 20 MG TAB PO SCH ×2 (07:49→20:31)
[2017-02-10] MEDS: DEXAMETHASONE 4 MG TAB PO SCH ×3 (07:50→20:32)
[2017-02-10] MEDS: METHADONE HCL 5 MG TAB PO SCH ×2 (08:29→20:31)
--- NOTE | 2017-02-10 09:03 | Palliative Care Progress Note ---
Palliative Care Progress Note Date of Service Feb 10, 2017. Subjective Pt evaluation today including: conversation w/ patient, conversation w/ family , physical exam, chart review, lab review Pain: Improving - pt not able to rate PO Intake: Improving - ate 100% of breakfast Voiding: hull catheter in place Nursing reports he slept all night, less confused in the evening. This am is sitting up more, able to move with less pain behavior. Improvement most likely due to Decadron and XRT Review of Systems Constitutional: No chills Eyes: No discharge ENT: No sore throat Respiratory: No cough Cardiac: No chest pain, No edema Abdomen: No pain, No nausea, No constipation Musculoskeletal: + problem reported (still c/o backpain ) Male : + problem reported (hull in place) Neurologic: + memory loss, + weakness Psychiatric: No depression symptoms Skin: No rash Objective Vital Signs Date Time Temp Pulse Resp B/P (MAP) Pulse Ox O2 Delivery O2 Flow Rate FiO2 02/10/17 07:17 36.7 68 18 146/81 (102) 94 Room Air 02/10/17 03:54 36.6 67 18 160/73 (102) 94 2.0 02/10/17 00:00 Nasal Cannula 2.0 02/09/17 23:51 36.4 73 20 118/70 (86) 97 Nasal Cannula 2.0 02/09/17 19:25 36.5 80 20 125/75 (92) 94 Nasal Cannula 2.0 02/09/17 16:22 Nasal Cannula 2.0 02/09/17 15:53 36.7 85 22 168/89 (115) 99 Nasal Cannula 2.0 02/09/17 12:07 36.6 67 20 132/ (44) 96 Room Air Physical Exam General Appearance: no apparent distress Eyes: + pertinent finding (clouded cornea R eye) ENT: hearing grossly normal Neck: supple Respiratory/Chest: + decreased breath sounds (bases R>L) Cardiovascular: regular rate, rhythm, + systolic murmur Abdomen: non tender, soft Extremities: no pedal edema Neurologic/Psychiatric: alert, + motor weakness, + pertinent finding (less confused) Skin: warm/dry, no rash Laboratory Results Last 24 Hours Test 02/10/17 05:41 Creatinine 0.82 mg/dl Est Creatinine Clear Calc Drug Dose 84.1 ml/min Estimated GFR () 95.4 Estimated GFR (Non- 82.4 Assessment and Plan (1) Lower back pain Status: Acute Assessment & Plan: Improving on decadron and XRT. Started on methadone yesterday - had 2 doses - only required one prn PO Dilaudid prior to XRT Methadone can be titrated Q 3- 5 days in an inpt setting - titrate only Q 10 - 14 days as an outpt Continue PO Dilaudid as needed until methadone is titrated to effect. (2) Weakness Status: Acute Assessment & Plan: Weakness progressed over several weeks [place] - pt not able to stand and bear weight even when pain well controlled on higher Fentanyl patch Will need PT/OT once pain controlled (3) Fracture of lumbar spine Status: Acute Assessment & Plan: pain control (4) 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 cancer Status: Acute Assessment & Plan: Pt does not c/o sternal pain where known met is - pain control (5) Spinal stenosis Status: Chronic Assessment & Plan: Contributing to weakness (6) Benign hypertension Status: Chronic Assessment & Plan: Controlled on current meds (7) Diabetes mellitus Status: Chronic Assessment & Plan: Diet controlled - may need to monitor more closely on Decadron (8) Altered mental status Status: Acute Assessment & Plan: Improving with d/c of Fentanyl patch Plan to collaborate with attending physician regarding time frame of transfer to SNF Total time at 25 min with > 50% of time spent discussing prognosis, causes of AMS and changes in pain meds with pt and Palliative Performance Scale: 30 % Continued [facility] stay due to: voiding difficulties, ambulation difficulties, home environment unsafe for pt Discharge planning: shelter facility
[2017-02-10] MEDS ORDERED: DXM4 PO (09:08)
[2017-02-10] MEDS ORDERED: TEMA15CA4 PO (09:08)
[2017-02-10] MEDS ORDERED: LCTS240 PO (09:08)
[2017-02-10] MEDS ORDERED: SERT50TA PO (09:08)
[2017-02-10] MEDS ORDERED: HYDR2TAB3 PO (09:08)
[2017-02-10] MEDS ORDERED: MTH5 PO (09:08)
--- NOTE | 2017-02-10 09:11 | Discharge Instructions ---
Discharge Instructions Date of Service Feb 11, 2017. Admission Reason for Admission: Fracture Of Lumbar Spine, Mestatasis From Discharge Discharge Diagnosis / Problem: metastatic pancreatic cancer Discharge Goals Goal(s): Diagnostic testing, Therapeutic intervention Activity Recommendations Activity Level: Assistance Required .81yo male - stage 4 pancreatic cancer, L4 metastatic disease with resulting severe pain and some element of radiculopathy - continue palliative XRT . cont decadron - - 4mg TID. for pain control transition him off fentanyl patch to po methadone 2.5mg BID continue PO dilaudid prn encephalopathy - thought to be toxic from narcotics - along with possible hepatic encephalopathy. head CT with no mets, ICH, or stroke, ammonia level did normalize with lactulose , but continue h/o numerous PEs - on lovenox 1.5mg/kg/day - since we are transitioning to hospice will d/c hematuria - resolved; was due to hull trauma in setting of lovenox constipation - lactulose. BPH - since he has a hull will d/c flomax. Additional Information Patient informed of condition: Yes Advance Directives: Yes DNR: Yes Level of Care: Skilled Communicable Disease: No Prognosis: Stable Hull Catheter: Yes Current Hospital Diet Patient's current hospital diet: Regular Diet Discharge Diet Recommended Diet: Regular Diet Pending Studies Studies pending at discharge: no Medical Emergencies . Who to Call and When: Medical Emergencies: If at any time you feel your situation is an emergency, please call 911 immediately. . Non-Emergent Contact Non-Emergency issues call your: Primary Care Provider Call Non-Emergent contact if: temperature is above 101, your pain is unusual for you . . "Provider Documentation" section prepared by Fidencio Garcia. . Core Measure Problem Core Measures: None
[2017-02-10] MEDS: HYDROmorphone HCL 2 MG TAB PO PRN ×2 (11:17→22:10)
--- NOTE | 2017-02-10 17:41 | Progress Note ---
Subjective Date of Service: Feb 10, 2017. 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: Acute (7) 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 cancer Status: Acute (8) 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 cancer Status: Acute (9) Weakness Status: Acute Review of Systems Constitutional: + weakness, + fatigue, No fever, No chills Eyes: + problem reported (no additional hallucinations), No worsening of vision , No eye pain Respiratory: No cough, No shortness of breath Cardiac: No chest pain, No orthopnea, No PND, No edema Abdomen: + pain, No nausea, No vomiting Musculoskeletal: + joint pain (has back pain with movement), No muscle pain Psychiatric: No depression symptoms, No anhedonism, No anxiety Objective Vital Signs Date Time Temp Pulse Resp B/P (MAP) Pulse Ox O2 Delivery O2 Flow Rate FiO2 02/10/17 15:10 95 Room Air 02/10/17 15:03 36.6 61 18 130/73 (92) 95 Room Air 02/10/17 11:18 36.3 58 18 129/71 (90) 94 Room Air 02/10/17 08:30 94 Room Air 02/10/17 07:17 36.7 68 18 146/81 (102) 94 Room Air 02/10/17 03:54 36.6 67 18 160/73 (102) 94 2.0 02/10/17 00:00 Nasal Cannula 2.0 02/09/17 23:51 36.4 73 20 118/70 (86) 97 Nasal Cannula 2.0 02/09/17 19:25 36.5 80 20 125/75 (92) 94 Nasal Cannula 2.0 Physical Exam General Appearance: WD/WN, no apparent distress, + obese Neck: supple, no JVD Respiratory/Chest: chest non-tender, normal breath sounds, + decreased breath sounds Cardiovascular: regular rate, rhythm, no murmur Abdomen: normal bowel sounds, soft Extremities: no pedal edema, no calf tenderness Neurologic/Psychiatric: alert, oriented x 3 (oriented 2 not 3) Skin: normal color, warm/dry Laboratory Results Last 24 Hours Test 02/10/17 05:41 Creatinine 0.82 mg/dl Est Creatinine Clear Calc Drug Dose 84.1 ml/min Estimated GFR () 95.4 Estimated GFR (Non- 82.4 Assessment and Plan 81yo male - stage 4 pancreatic cancer, L4 metastatic disease with resulting severe pain and some element of radiculopathy - Attempts at moving to [facility] for palliative care meeting to coordinate with his insurance provider and [facility] facility continue palliative XRT . cont decadron - - 4mg TID. for pain control transition him off fentanyl patch to po methadone 2.5mg BID continue PO dilaudid prn encephalopathy -resolving thought to be toxic from narcotics head CT with no mets, ICH, or stroke, ammonia level did normalize with lactulose h/o numerous PEs - on lovenox 1.5mg/kg/day - since we are transitioning to hospice will d/c hematuria - resolved; was due to hull trauma in setting of lovenox constipation - lactulose. BPH - since he has a hull will d/c flomax. Continued [facility] stay due to: voiding difficulties, ambulation difficulties, home environment unsafe for pt Discharge planning: [facility] facility
[2017-02-10] MEDS: LISINOPRIL 5 MG TAB PO SCH (20:33)
[2017-02-10] MEDS: TRAVOPROST Z 0.004% OPH SOLN 2.5 ML BTL OPL SCH (20:39)
[2017-02-11 04:27] VITALS: BP 150/81; PULSE 58; TEMP 36.3; O2SAT 98
[2017-02-11 06:35] LABS: CREATININE 0.85 mg/dl (0.60-1.40)
[2017-02-11 07:16] VITALS: BP 166/72; PULSE 59; TEMP 36.4; O2SAT 99
[2017-02-11] MEDS: LACTULOSE SYRUP 10 GM/15 ML BTL 473 ML PO SCH (08:02)
[2017-02-11] MEDS: AMLODIPINE BESYLATE 5 MG TAB PO SCH (08:02)
[2017-02-11] MEDS: FAMOTIDINE 20 MG TAB PO SCH (08:02)
[2017-02-11] MEDS: DORZOLAMIDE/TIMOLOL 22.3/6.8MG/ML 10 ML BTL OPL SCH (08:02)
[2017-02-11] MEDS: DEXAMETHASONE 4 MG TAB PO SCH ×2 (08:02→14:16)
[2017-02-11] MEDS: SERTRALINE HCL 50 MG TAB PO SCH (08:02)
[2017-02-11] MEDS: METHADONE HCL 5 MG TAB PO SCH (08:06)
[2017-02-11 08:30] VITALS: O2SAT 99
--- NOTE | 2017-02-11 09:16 | Palliative Care Progress Note ---
Palliative Care Progress Note Date of Service Feb 11, 2017. Subjective Pt evaluation today including: conversation w/ patient, chart review, lab review Pain: Well controlled - pt unable to rate Voiding: hull catheter in place Pt able to sit up in bed to eat breakfast this am, was able to pull himself to a more upright position with assist - no grimace. Pain doing well on methadone at 2.5 mg BID - has not yet reached steady state - should be at max effectiveness by 02/16. Pt received PO Dilaudid X 2 yesterday - pt given dose prior to XRT - ? if he will need it now that pain control is better. 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) ENT: No sore throat Respiratory: No cough Cardiac: No edema Abdomen: No pain, No nausea Musculoskeletal: No swelling Male : + problem reported (traumatic hematuria - resolved) Neurologic: + problem reported (confusion and hallucinations improving) Psychiatric: No insomnia Heme: No abnormal bleeding/bruising Skin: No rash Objective Vital Signs Date Time Temp Pulse Resp B/P (MAP) Pulse Ox O2 Delivery O2 Flow Rate FiO2 02/11/17 07:16 36.4 59 18 166/72 (103) 99 Nasal Cannula 2.0 02/11/17 04:27 36.3 58 20 150/81 (104) 98 Nasal Cannula 2.0 02/11/17 00:05 Room Air 02/10/17 22:38 36.4 66 18 148/80 (102) 98 Nasal Cannula 2.0 02/10/17 20:00 Room Air 02/10/17 18:56 36.5 64 16 133/76 (95) 94 Room Air 02/10/17 15:10 95 Room Air 02/10/17 15:03 36.6 61 18 130/73 (92) 95 Room Air 02/10/17 11:18 36.3 58 18 129/71 (90) 94 Room Air Physical Exam General Appearance: no apparent distress Eyes: + pertinent finding (R cornea clouded) ENT: hearing grossly normal Neck: supple Respiratory/Chest: no respiratory distress, + decreased breath sounds Cardiovascular: regular rate, rhythm, + systolic murmur Abdomen: non tender, soft Extremities: no pedal edema Neurologic/Psychiatric: alert Skin: no rash Laboratory Results Last 24 Hours Test 02/11/17 05:18 Creatinine 0.85 mg/dl Est Creatinine Clear Calc Drug Dose 81.4 ml/min Estimated GFR () 94.0 Estimated GFR (Non- 81.1 Assessment and Plan (1) Lower back pain Status: Acute Assessment & Plan: Pain well controlled on current methadone dose (2) Weakness Status: Acute Assessment & Plan: Pt to be transferred for fpc today (3) Fracture of lumbar spine Status: Acute Assessment & Plan: pain control/XRT (4) 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 cancer Status: Acute Assessment & Plan: Pain control, XRT to spine (5) Spinal stenosis Status: Chronic Assessment & Plan: Contributing to weakness (6) Benign hypertension Status: Chronic Assessment & Plan: BP trending up - can be monitored as outpt (7) Diabetes mellitus Status: Chronic Assessment & Plan: diet controlled , monitor on Decadron (8) Altered mental status Status: Acute Assessment & Plan: Improved off Fentanyl patch Pt ready fro D/c to SNF Total time at 25 min with > 50% of time spent discussing pain control with pt Palliative Performance Scale: 30 % Continued [facility] stay due to: ambulation difficulties, home environment unsafe for pt Discharge planning: fpc facility
[2017-02-11] MEDS: HYDROmorphone HCL 2 MG TAB PO PRN (10:34)
[2017-02-11 12:19] VITALS: BP 166/72; PULSE 59; TEMP 36.4; O2SAT 99
[2017-02-11 15:42] VITALS: BP 153/82; PULSE 68; TEMP 36.6; O2SAT 97
--- NOTE | 2017-02-11 19:35 | Discharge Summary ---
Discharge Summary Date of Service Feb 10, 2017. Discharge Summary Admission Date: Feb 02, 2017 at 14:27 Discharge Date: Feb 11, 2017 Discharge Disposition: group home facility Principal Diagnosis: metastatic pancreatic cancer with pain Immunizations: Have You Had Influenza Vaccine: Yes History of Tetanus Vaccine?: Yes History of Pneumococcal: Yes History of Hepatitis B Vaccine: No Medication Reconciliation New Medications: Dexamethasone (Dexamethasone) 4 Mg Tab 4 MG PO TID, #90 TAB Hydromorphone HCl (Hydromorphone HCl) 2 Mg Tab 2 MG PO Q6H PRN for Pain, #30 TAB Lactulose (Chronulac) 10 Gm/15 Ml Syrp 15 GM PO QAM, #1000 ML Methadone HCl (Methadone HCl) 5 Mg Tab 2.5 MG PO BID, #60 TAB Changed Medications: Sertraline (Zoloft) 50 Mg Tab 75 MG PO DAILY, #60 TAB (Changed from: 50 MG) Temazepam (Restoril) 15 Mg Cap 30 MG PO HS PRN for Sleep, #30 DOSE 0 Refills (Changed from: 15-30 MG) Continued Medications: Amlodipine Besylate (Norvasc) 5 Mg Tab 5 MG PO QAM, TAB Dorzolamide Hcl-Timolol Maleat (Cosopt Oph) 1 Georgina Georgina 1 DROPS OPL BID Ipratropium-Albuterol (Combivent Respimat) 1 Aer Aer 1 PUFFS INH QID, INH Lisinopril (Prinivil) 5 Mg Tab 5 MG PO HS, TAB Travoprost (Travatan Z) 0.004 % Conrad 1 DROP OPL HS Discontinued Medications: Cholecalciferol (Vitamin D3) 1,000 Unit Cap 2000 UNIT PO DAILY Cinacalcet (Sensipar) 30 Mg Tab 30 MG PO QPM, TAB Cinacalcet (Sensipar) 30 Mg Tab 60 MG PO QAM Cyanocobalamin (Vitamin B-12) 1,000 Mcg Tab 1000 MCG PO QAM Enoxaparin Sodium (Enoxaparin Sodium) 150 Mg/Ml Inj 150 MG SQ HS for 28 Days Folic Acid (Folic Acid) 1 Mg Tab 1 MG PO QAM Simvastatin (Zocor) 20 Mg Tab 10 MG PO QPM, TAB Tamsulosin Hcl (Flomax) 0.4 Mg Cap 0.4 MG PO DAILY, CAP Discharge Exam Review of Systems: Constitutional: No fever, No chills, No sweats Cardiovascular: + chest pain, + orthopnea, + PND Physical Exam: General Appearance: WD/WN, + mild distress Respiratory/Chest: chest non-tender, lungs clear, normal breath sounds Cardiovascular: regular rate, rhythm, no murmur Hospital Course .81yo male - stage 4 pancreatic cancer, L4 metastatic disease with resulting severe pain and some element of radiculopathy - continue palliative XRT . cont decadron - - 4mg TID. for pain control transition him off fentanyl patch to po methadone 2.5mg BID continue PO dilaudid prn encephalopathy - thought to be toxic from narcotics - along with possible hepatic encephalopathy. head CT with no mets, ICH, or stroke, ammonia level did normalize with lactulose , but continue h/o numerous PEs - on lovenox 1.5mg/kg/day - since we are transitioning to hospice will d/c hematuria - resolved; was due to hull trauma in setting of lovenox constipation - lactulose. BPH - since he has a hull will d/c flomax. Total Time Spent: Greater than 30 minutes This includes examination of the patient, discharge planning, medication reconciliation, and communication with other providers. Discharge Instructions Please refer to the electronic Patient Visit Report (Discharge Instructions) for additional information.
[2017-02-15] MEDS ORDERED: METH5TAB2 PO (12:55)
[2017-02-15] MEDS ORDERED: ONDA8TAB6 PO (12:55)
[2017-02-15] MEDS ORDERED: HYDR2TAB48 PO (12:55)
== END 2017-02-11 16:15 | DRG 542 ==
LOC: EDBD 11:33 → C.EDB 11:35 → C.4E 14:27 → ENRESERV 14:43
PROVIDERS: ADMIT Hospitalist; ATTEND Internal Medicine
DX: C79.51 Secondary malignant neoplasm of bone (principal); G92 Toxic encephalopathy; M84.48XA Pathological fracture, other site, initial encounter for fracture; E72.20 Disorder of urea cycle metabolism, unspecified; N17.9 Acute kidney failure, unspecified; N13.2 Hydronephrosis with renal and ureteral calculous obstruction; C25.9 Malignant neoplasm of pancreas, unspecified; S37.39XA Other injury of urethra, initial encounter; G89.3 Neoplasm related pain (acute) (chronic); Z51.5 Encounter for palliative care; E11.40 Type 2 diabetes mellitus with diabetic neuropathy, unspecified; D64.9 Anemia, unspecified; H40.9 Unspecified glaucoma; E78.5 Hyperlipidemia, unspecified; N40.0 Benign prostatic hyperplasia without lower urinary tract symptoms; I10 Essential (primary) hypertension; F32.9 Major depressive disorder, single episode, unspecified; T83.098A Other mechanical complication of other urinary catheter, initial encounter; T40.4X5A Adverse effect of other synthetic narcotics, initial encounter; D16.7 Benign neoplasm of ribs, sternum and clavicle; M51.27 Other intervertebral disc displacement, lumbosacral region; Z79.01 Long term (current) use of anticoagulants; Z79.891 Long term (current) use of opiate analgesic; Z79.899 Other long term (current) drug therapy; Z86.711 Personal history of pulmonary embolism; Z87.891 Personal history of nicotine dependence; Z87.81 Personal history of (healed) traumatic fracture; Z88.0 Allergy status to penicillin; Y92.230 Patient room in hospital as the place of occurrence of the external cause; Y73.1 Therapeutic (nonsurgical) and rehabilitative gastroenterology and urology devices associated with adverse incidents